=== PATIENT | male | born 1970 | race Caucasian/White ===

== ENCOUNTER 2016-06-30 22:18 | Inpatient (IN) | payer OTHER ==
[~2016-06-30] VITALS: Ht 167.6 cm; Wt 109.0 kg
[2016-06-30] MEDS ORDERED: DILTIAZEM HCL 5 MG/ML 5 ML VIAL ONE (22:53)
[2016-06-30] MEDS ORDERED: SODIUM CHLORIDE 0.9% 1000ML 1,000 ML IV STA (22:55)
[2016-06-30] MEDS ORDERED: ASPIRIN 324 MG CHEW PO STA (23:04)
[2016-06-30] MEDS ORDERED: METOPROLOL TARTRATE 1 MG/ML VIAL IV STA (23:32)
--- NOTE | 2016-06-30 23:51 | EMERGENCY ROOM VISIT NOTE ---
History Report prepared by Dao: Malika Melgar Under the Supervision of: Dr. Nik Musa M.D. First contact with patient: 22:49 Chief Complaint: CHEST PAIN Stated Complaint: SOB,CHEST PAIN History of Present Illness The patient is a 45 year old male who presents to the Emergency Room with complaints of intermittent episodes of heavy chest pressure over the past 5 days. Currently, while resting, he is in minimal discomfort, however he notes that his pains are exacerbated with attempts of exertion. When rebekah the pains, the patient also becomes short of breath, but he denies radiation of his pain to his neck, jaw, back or down his arms. Patient denies feeling light headed or suffering syncopal episodes. Since the time of onset, the patient states that he has had a loss of appetite, but he denies abdominal pain, nausea , vomiting, diarrhea, melena, hematochezia, swelling to his extremities or abnormal bleeding. He also denies suffering recent falls or trauma. Patient does note history of hypertension, but he does not take any regular medications. Source of History: patient Onset: over the past 5 days Position: chest Symptom Intensity: minimal Quality: pressure Timing: intermittent Modifying Factors (Worsening): exertion Modifying Factors (Relieving): rest Associated Symptoms: + SOB, No LOC, No abdominal pain, No diarrhea, No hematochezia, No melena, No nausea, No neck pain, No vomiting Review of Systems See HPI for pertinent positives & negatives. A total of 10 systems reviewed and were otherwise negative. Past Medical & Surgical Medical Problems: (1) HTN (hypertension) (2) No known allergies (3) Respiratory failure, acute Family History Unknown Social History Smoking Status: Never Smoker Marital Status: Housing Status: lives with family Occupation Status: unemployed Current/Historical Medications No Active Prescriptions or Reported Meds Allergies Coded Allergies: No Known Allergies (Unverified , 06/30/16) Physical Exam Vital Signs Date Time Temp Pulse Resp B/P Pulse Ox O2 Delivery O2 Flow Rate FiO2 07/01/16 01:16 112 24 154/112 96 BiPAP 07/01/16 00:51 109 26 98 BiPAP/CPAP 40 07/01/16 00:37 129 120/100 07/01/16 00:30 112 24 131/91 98 BiPAP 07/01/16 00:02 114 97 40 06/30/16 23:49 22 92 Nasal Cannula 4.0 06/30/16 23:45 22 88 Nasal Cannula 2.0 06/30/16 23:40 24 86 Room Air 06/30/16 23:39 126 153/85 06/30/16 23:23 95 Room Air 06/30/16 23:19 160 06/30/16 23:11 145 06/30/16 22:53 167 06/30/16 22:49 36.8 147 20 178/92 95 Room Air Physical Exam GENERAL: Patient is ill appearing, in moderate distress. HEENT: No acute trauma, normocephalic atraumatic, mucous membranes moist, no nasal congestion, no scleral icterus. NECK: No stridor, no adenopathy, no meningismus, trachea is midline. LUNGS: Mildly dyspneic with crackles at the bilateral lower lobes. HEART: Tachycardic and irregular heart rate. ABDOMEN: Soft, nontender, bowel sounds positive, no masses appreciated, no peritonitis. BACK: No midline tenderness, no CVA tenderness EXTREMITIES: Trace edema, bilateral ankles, right greater than left. NEUROLOGIC: Alert and oriented, no acute motor or sensory deficits, no focal weakness, cranial nerves grossly intact. SKIN: No rash, no jaundice, no diaphoresis. Medical Decision & Procedures ER Provider Diagnostic Interpretation: Upon my interpretation, 1 view chest x-ray shows diffuse pulmonary edema and an enlarged heart. Laboratory Results Test 06/30/16 23:48 07/01/16 00:52 RDW Standard Deviation 38.7 fL (36.4-46.3) RDW Coefficient of Variation 12.0 % (11.5-14.5) White Blood Count 8.96 K/uL (4.8-10.8) Red Blood Count 4.80 M/uL (4.7-6.1) Hemoglobin 15.3 g/dL (14.0-18.0) Hematocrit 42.9 % (42-52) Mean Corpuscular Volume 89.4 fL (80-100) Mean Corpuscular Hemoglobin 31.9 pg (25-34) Mean Corpuscular Hemoglobin Concent 35.7 g/dl (32-36) Platelet Count 190 K/uL (130-400) Mean Platelet Volume 11.4 fL (7.4-10.4) Neutrophils (%) (Auto) 54.3 % Lymphocytes (%) (Auto) 29.6 % Monocytes (%) (Auto) 9.7 % Eosinophils (%) (Auto) 5.5 % Basophils (%) (Auto) 0.6 % Neutrophils # (Auto) 4.87 K/uL (1.4-6.5) Lymphocytes # (Auto) 2.65 K/uL (1.2-3.4) Monocytes # (Auto) 0.87 K/uL (0.11-0.59) Eosinophils # (Auto) 0.49 K/uL (0-0.5) Basophils # (Auto) 0.05 K/uL (0-0.2) Immature Granulocyte % (Auto) 0.3 % Immature Granulocyte # (Auto) 0.03 K/uL (0.00-0.02) Prothrombin Time 11.4 SECONDS (9.0-12.0) Prothromb Time International Ratio 1.1 (0.9-1.1) Activated Partial Thromboplast Time 28.5 SECONDS (21.0-31.0) Partial Thromboplastin Ratio 1.1 D-Dimer 1210 ug/L FEU (0-500) Magnesium Level 2.0 mg/dl (1.8-2.4) Total Creatine Kinase 334 U/L (39-308) Creatine Kinase MB 3.2 ng/ml (0.5-3.6) Creatine Kinase MB Ratio 1.0 (0-3.0) Thyroid Stimulating Hormone (TSH) 1.880 uIu/ml (0.300-4.500) Arterial Blood pH 7.45 (7.35-7.45) Arterial Blood Partial Pressure CO2 33 mmHg (35-46) Arterial Blood Partial Pressure O2 118 mm/Hg (80-95) Arterial Blood HCO3 22 mmol/L (19-24) Arterial Blood Oxygen Saturation 98.6 % (90-95) Arterial Blood Base Excess -1.2 mEq/L (-9-1.8) Arterial Blood Gas Delivery 40% Rosalio Test POS (POS) Laboratory results as reviewed by me. Medications Administered Medications (Trade) Dose Ordered Sig/Idania Route Start Time Stop Time Status Last Admin Dose Admin Diltiazem HCl 25 mg 25 mg STK-MED ONCE .ROUTE 06/30/16 22:53 06/30/16 22:54 DC 06/30/16 22:53 15 MG Sodium Chloride (Nss 1000ml) 1,000 ml @ 999 mls/hr Q1H1M STAT IV 06/30/16 22:55 06/30/16 23:45 DC 06/30/16 23:14 999 MLS/HR Aspirin (Aspirin Chew) 324 mg NOW STAT PO 06/30/16 23:04 06/30/16 23:05 DC 06/30/16 23:15 324 MG Metoprolol Tartrate (Lopressor Iv) 5 mg NOW STAT IV 06/30/16 23:32 06/30/16 23:33 DC 06/30/16 23:39 5 MG Metoprolol Tartrate (Lopressor Tab) 25 mg NOW STAT PO 07/01/16 00:37 07/01/16 00:38 DC 07/01/16 00:37 25 MG Metoprolol Tartrate (Lopressor Iv) 5 mg NOW STAT IV 07/01/16 00:29 07/01/16 00:30 DC 07/01/16 00:37 5 MG Ipratropium [place] (Atrovent 0.02% 0.5MG/2.5ML Neb) 0.5 mg NOW STAT INH 07/01/16 00:37 07/01/16 00:38 DC 07/01/16 00:51 0.5 MG Levalbuterol (Xopenex 1.25MG/ 0.5ML Neb) 1.25 mg NOW STAT INH 07/01/16 00:38 07/01/16 00:39 DC 07/01/16 00:51 1.25 MG Furosemide (Lasix Inj) 40 mg NOW STAT IV 07/01/16 00:40 07/01/16 00:41 DC 07/01/16 00:43 40 MG ECG Indication: chest pain Rate (beats per minute): 150 Rhythm: atrial fibrillation (with RVR) Findings: nonspecific-ST abn ED Course 2250: The patient was evaluated in room C11. A complete history and physical exam was performed. 3: Cardizem 25 mg Route was ordered. 2255: NSS bolus IV was ordered. 2304: Aspirin 324 mg PO was ordered. 2305: Patient was reevaluated at this time. He will receive the Cardizem shortly. 2332: Upon reevaluation, patient was no longer experiencing chest pressure, but was still feeling short of breath. His heart rate was at 103 BPM and his oxygen saturation levels were at 85% on normal room air. Lopressor 5 mg IV was ordered and he will be placed on oxygen via nasal canula. The hospitalist will be contacted. 2338: After discussion with Dr. Rossi, the patent will continue to be evaluated by the [facility] for further management. The patient and his verbalized their understanding and agreement with this treatment plan. 2352: Patient was experienced increased dyspnea and his heart rate was now down to 85. Respiratory team will be called to place BiPAP. 0010: Upon reevaluation, patient was breathing more comfortably on BiPAP. HR is in the 90's and is irregular. 0029: Upon reevaluation, the patient's HR was at 117 and irregular. Lopressor 5 mg IV was ordered. 0030: Lasix 40 mg Route was ordered. 0037: Ipratropium [place] 0.5 mg INH, Lopressor tab 25 mg PO, Levalbuterol 1.25 mg INH and Lasix 40 mg IV were ordered. Medical Decision Differential: NSR, SVT, PACs, PVCs, Cardiac Dysrhythmia, Endocrine Dysfunction, Electrolyte/Metabolic Abnormality, Pulmonary Embolism, Infectious, GI, amongst other pathologies entertained. 45 yr old male arrives with complaint of SOB and CP on exertion. He was found to be afib RVR on arrival though by exam did not seem to be in overt failure. No previous cardiac history nor other major medical issues thus due to significant tachycardia ordered 15mg Cardizem IV along with 1 L NSS bolus. HR improving and CXR obtained revealing significant pulmonary edema. Patient did start becoming hypoxic and SHOB even with just laying back slightly in bed. I placed him on BIPAP with excellent result and patient feeling well. Due to heart failure switched to Lopressor with excellent HR improvement. No fevers, no wbc elevation and no clear lobar infiltrates on CXR. HR did start coming back up thus given another IV dose lopressor, in addition to PO that Dr العلي has ordered. Labs looks good otherwise and he is in no distress while on bipap. Hospitalist has ordered lasix. Patient stable BP and comfortable. Multiple re-evaluations of patient throughout the evening and patient doing well. Consults Time Called: [id number] Consulting Physician: [facility]. Bra[facility]io [facility] Returned Call: [phone] Discussed the patient's case. He will continue to be evaluated by the [facility] hospitalist for further management. Impression Primary Impression: Atrial fibrillation with RVR Additional Impression: Pulmonary edema Critical Care I have personally spent greater than 45 minutes of critical care time in the direct management of this patient. This was a life/limb threatening event. This includes time spent evaluating patient, direct bedside care, chart review, placing orders, interpretation of diagnostic studies, discussion with consultants, patient, and family members, as well as other required patient management activities. This 45 minutes is in excess of all separately billable procedures. Scribe Attestation The scribe's documentation has been prepared under my direction and personally reviewed by me in its entirety. I confirm that the note above accurately reflects all work, treatment, procedures, and medical decision making performed by me. Departure Information Dispostion Being Evaluated By Hospitalist ([place]) Prescriptions No Active Prescriptions or Reported Meds Referrals No Doctor, Assigned (PCP)
[2016-07-01] VITALS (25 sets, daily range): BP systolic 83–146; BP diastolic 50–96; PULSE 11–159; TEMP 36.4–36.8; O2SAT 88–98; Ht 167.6 cm; Wt 109.0 kg
[2016-07-01 00:01] LABS: BASO % 0.6 %; BASO ABS # 0.05 K/uL (0-0.2); COMPLETE YES; EOS % 5.5 %; HEMATOCRIT 42.9 % (42-52); IG% 0.3 %; LYMPH % 29.6 %; LYMPH ABS # 2.65 K/uL (1.2-3.4); MEAN CELL VOLUME 89.4 fL (80-100); MEAN CORPUSCULAR HEMOGLOBIN 31.9 pg (25-34); MEAN CORPUSCULAR HGB CONC 35.7 g/dl (32-36); MEAN PLATELET VOLUME 11.4 fL (7.4-10.4); MONO % 9.7 %; NEUT % 54.3 %; PLATELET COUNT 190 K/uL (130-400); WHITE BLOOD COUNT 8.96 K/uL (4.8-10.8)
[2016-07-01 00:12] LABS: INR 1.1 (0.9-1.1); PARTIAL THROMBOPLASTIN RATIO 1.1; PROTHROMBIN TIME (PATIENT) 11.4 SECONDS (9.0-12.0)
[2016-07-01 00:16] LABS: BLOOD UREA NITROGEN 20 mg/dl (7-18); BUN/CREATININE RATIO 15.1 (10-20); CALCIUM 8.6 mg/dl (8.5-10.1); CARBON DIOXIDE 25 mmol/L (21-32); CHLORIDE 107 mmol/L (98-107); GLUCOSE 109 mg/dl (70-99); SODIUM 139 mmol/L (136-145)
[2016-07-01] MEDS ORDERED: LEVALBUTEROL/IPRATROPIUM NEB INH STA (00:21)
[2016-07-01] MEDS ORDERED: FUROSEMIDE INJ 40 MG in SYRINGE 0 ML IV STA (00:21)
[2016-07-01] MEDS ORDERED: METOPROLOL TARTRATE 1 MG/ML VIAL IV STA (00:29)
[2016-07-01] MEDS ORDERED: LEVALBUTEROL/IPRATROPIUM NEB INH PRN (00:30)
[2016-07-01] MEDS ORDERED: FUROSEMIDE 40 MG/4 ML VIAL ONE (00:30)
[2016-07-01] MEDS ORDERED: METOPROLOL TARTRATE 50 MG TAB PO STA (00:37)
[2016-07-01] MEDS ORDERED: IPRATROPIUM BROMIDE NEB SOLN 0.02% 2.5 ML VIAL INH STA (00:37)
[2016-07-01] MEDS ORDERED: LEVALBUTEROL 1.25MG/0.5ML NEB INH STA (00:38)
[2016-07-01] MEDS ORDERED: FUROSEMIDE 40 MG/4 ML VIAL IV STA (00:40)
[2016-07-01 01:15] LABS: ALLEN TEST POS (POS); ARTERIAL BLD GAS O2 SATURATION 98.6 % (90-95); ARTERIAL BLOOD GAS BASE EXCESS -1.2 mEq/L (-9-1.8); ARTERIAL BLOOD GAS HCO3 22 mmol/L (19-24); ARTERIAL BLOOD GAS PO2 118 mm/Hg (80-95); ARTERIAL BLOOD GAS pH 7.45 (7.35-7.45); O2 ADMINISTRATION 40%
[2016-07-01] MEDS ORDERED: LORAZEPAM 2 MG/ML 1 ML VIAL IV PRN (02:00)
[2016-07-01] MEDS ORDERED: MoRPHine SULFATE 4 MG/ML 1 ML CARP\\VIAL IV PRN (02:00)
[2016-07-01] MEDS ORDERED: NITROGLYCERIN 0.4 MG SL PER TAB CHARGE SL PRN (02:00)
[2016-07-01] MEDS ORDERED: ACETAMINOPHEN 325 MG TAB PO PRN (02:00)
[2016-07-01] MEDS ORDERED: LORAZEPAM INJ 0.5 MG in SYRINGE 0.75 ML IV PRN (02:00)
[2016-07-01] MEDS ORDERED: OPTIRAY 320 IV PRN (02:00)
[2016-07-01] MEDS ORDERED: TRAMADOL HCL 50 MG TAB PO PRN (02:00)
[2016-07-01] MEDS ORDERED: METOPROLOL TARTRATE 25 MG TAB PO STA (04:49)
[2016-07-01] MEDS: HEPARIN 25,000 UNIT/500ML D5W 500 ML IV PRN ×2 (05:25→20:52)
[2016-07-01 05:39] LABS: BASO % 0.5 %; BASO ABS # 0.04 K/uL (0-0.2); COMPLETE YES; EOS % 3.7 %; HEMATOCRIT 42.3 % (42-52); IG% 0.3 %; LYMPH % 26.5 %; LYMPH ABS # 2.32 K/uL (1.2-3.4); MEAN CELL VOLUME 90.6 fL (80-100); MEAN CORPUSCULAR HEMOGLOBIN 32.3 pg (25-34); MEAN CORPUSCULAR HGB CONC 35.7 g/dl (32-36); MEAN PLATELET VOLUME 11.1 fL (7.4-10.4); MONO % 9.3 %; NEUT % 59.7 %; PLATELET COUNT 193 K/uL (130-400); RED BLOOD COUNT 4.67 M/uL (4.7-6.1); WHITE BLOOD COUNT 8.74 K/uL (4.8-10.8)
[2016-07-01 06:05] LABS: BUN/CREATININE RATIO 15.8 (10-20); CALCIUM 8.7 mg/dl (8.5-10.1); CREATININE 1.3 mg/dl (0.60-1.40); POTASSIUM 4.4 mmol/L (3.5-5.1)
--- NOTE | 2016-07-01 07:05 | HISTORY & PHYSICAL EXAMINATION ---
DATE OF ADMISSION: 07/01/2016 The patient has no primary care doctor. CHIEF COMPLAINT: Chest pain. HISTORY OF PRESENT ILLNESS: Medical history significant for hypertension (px refusing meds). Few days' history of chest pain, pleuritic, with some shortness of breath, mostly on exertion, dry cough symptoms. Patient also noted palpitations, fast heartbeat. No fever, no chills. Denies unusual leg swelling or weight gain. At the Emergency Room, noted to be in rapid atrial fibrillation. heart rate noted to be 140s. Patient given NSS, Cardizem and Lopressor IV in the ER. At some point, O2 sats dropped to 86 on room air. PX had to be started on BiPAP. MEDICAL HISTORY: As above. He has been told that he has high blood pressure in the past, but he did not taken medication. also gives info that px snores; apneic episodes during sleep may be possible as per OPERATIONS: Appendectomy. HOME MEDICATIONS: None. ALLERGIES: No known drug allergies. FAMILY HISTORY: Atrial fibrillation. PERSONAL AND SOCIAL HISTORY: Nonsmoker, no chronic intake of alcoholic beverages. 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 REVIEW OF SYSTEMS: As per HPI, all other ROS negative. PHYSICAL EXAMINATION: VITAL SIGNS: Blood pressure was noted to be 170/92, pulse rate 140 later 126., RR 20, temperature 36.8, sats 94 on room air later 90s on BiPAP GENERAL: Noted to be slightly anxious, obese, some respiratory distress. SKIN : normal color. HEENT: [place] palpable conjunctivae. Moist buccal mucosa. BiPAP in place. NECK: Short. LUNGS: Bibasilar crackles. HEART: Irregular, tachycardic. ABDOMEN: Some distention. EXTREMITIES: No edema. No tenderness. NEUROLOGIC: No gross focality. LABS: Hemoglobin 15.3, hematocrit 42.5, white cells 8.9, platelets 190. Sodium 139, potassium 4, chloride 102, CO2 25, BUN 20, creatinine 1.3, glucose 109. trop 0 ABG, pH 7.45, pCO2 30, pO2 118, O2 sats 98 on 40%. EKG rate 150, atrial fibrillation, LAE, Q waves, inf leads. Chest x-ray showed CHF. CT chest, initial read, no pulmonary embolism. pulm congestion ASSESSMENT: 1. Acute hypoxemic respiratory failure secondary to acute congestive heart failure secondary to new-onset atrial fibrillation 2. HTN urgency medication noncompliance. ? underlying SDB PLAN: PCU supplemental O2 by NIPPV Lasix. Stat nebs, p.r.n. Initiate Lopressor for rate control. IV heparin for thromboembolic prevention 2D echo, Cardio consult RE new onset atrial fib, CHF strict IOs, daily weights CHF education outpx sleep study DVT prophylaxis, heparin. Full code. Total critical care time was 50 minutes. MTDD
--- NOTE | 2016-07-01 07:43 | DIAGNOSTIC IMAGING REPORT ---
SINGLE VIEW CHEST CLINICAL HISTORY: Cough. Atypical chest pain. FINDINGS: An AP, portable, upright chest radiograph is obtained. No prior studies are available for comparison at the time of dictation. The examination is degraded by portable technique and apical lordotic positioning. The heart is enlarged. There is pulmonary vascular congestion with interstitial edema. Small pleural effusions are suspected and there is bibasilar consolidation. No pneumothorax is seen. The bony thorax is grossly intact. IMPRESSION: 1. Cardiomegaly with evidence of congestive failure and interstitial edema. 2. Suspect small pleural effusions. Bibasilar consolidation likely represents atelectasis. Clinical correlation will be required. Electronically signed by: Ernie Vaughn M.D. 07/01/2016 7:41 AM
--- NOTE | 2016-07-01 08:35 | DIAGNOSTIC IMAGING REPORT ---
CT ANGIOGRAM OF THE CHEST CLINICAL HISTORY: Atypical chest pain. Dyspnea. COMPARISON STUDY: Chest x-ray dated 06/22/2016. TECHNIQUE: Following the IV administration of 92 cc of Optiray 320, CT angiogram of the chest was performed from the upper abdomen to the thoracic inlet utilizing the pulmonary embolus protocol. Images are reviewed in the axial, sagittal, and coronal planes. 3-D MIPS images are created and assessed. IV contrast was administered without complication. CT DOSE: 831.45 mGy.cm FINDINGS: Thyroid: Imaged portions of the thyroid gland are normal in size and attenuation. Thoracic aorta: The thoracic aorta is normal in caliber and demonstrates standard 3-vessel arch anatomy. The thoracic aorta is not well opacified. Pulmonary vasculature: The pulmonary trunk is normal in caliber. There are no filling defects identified in main, lobar, or segmental pulmonary branches to suggest pulmonary embolus. The subsegmental branches are not well assessed due to suboptimal contrast opacification. Heart: The heart is enlarged and without pericardial effusion. Lungs and pleural spaces: There are small to moderate bilateral pleural effusions with associated atelectasis. There is diffuse intralobular septal thickening as well as bilateral groundglass consolidation. Several nodular densities are identified (left upper lobe image #201 measuring 8 mm, right upper lobe image #186 measuring 7 mm). The trachea and central airways are patent. Mediastinum: There are mildly enlarged mediastinal lymph nodes. A high right peritracheal node on image #244 measures 1.5 cm in short axis. Yasmeen: There are mildly enlarged hilar lymph nodes. Several of these contain coarse calcifications. Axillae: There is no axillary lymphadenopathy. Upper abdomen: Reflux of contrast into the IVC and hepatic veins suggests cardiac dysfunction. There are calcified hepatic granulomas. A small hiatal hernia is observed. Skeletal structures: No lytic or blastic bony lesions are seen. IMPRESSION: 1. There is no evidence of pulmonary embolus in the main, lobar, or segmental pulmonary arteries. 2. Cardiomegaly with evidence of congestive failure. 3. There are small to moderate bilateral pleural effusions with associated atelectasis. 4. There is bilateral patchy groundglass consolidation, likely representing interstitial edema. Correlate clinically for evidence of a superimposed infectious or inflammatory pneumonitis. 5. There are numerous irregular nodular densities present throughout both lungs. This is likely related to congestive change/interstitial edema. Follow-up chest CT scan in 3-6 months time is recommended to document resolution. 6. Additional findings as above. Electronically signed by: Ernie Vaughn M.D. 07/01/2016 8:33 AM
[2016-07-01] MEDS ORDERED: PERFLUTREN LIPID MICROSPHERE (DEFINITY) IV ONE (08:39)
[2016-07-01] MEDS ORDERED: FUROSEMIDE INJ 40 MG in SYRINGE 0 ML IV SCH (09:00)
[2016-07-01] MEDS: METOPROLOL TARTRATE 25 MG TAB PO SCH ×2 (09:05→21:29)
--- NOTE | 2016-07-01 09:06 | ECHOCARDIOGRAM REPORT ---
*NOTICE TO RECEIVING REPUBLICAN AGENCY This information is strictly Confidential and protected under [place] law. [place] law prohibits you from making any further disclosure of this information unless further disclosure is expressly permitted by the written consent of the person to whom it pertains or is authorized by law. A general authorization for the release of medical or other information is not sufficient for this purpose. Hospital accepts no responsibility if the information is made available to any other person, INCLUDING THE PATIENT. Interpretation Summary * Name: AJ MENCHACA Study Date: 07/01/2016 07:27 AM BP: 117/77 mmHg * Patient Location: [facility] HR: 104 * : 1970 (M/d/yyyy) Gender: Male Height: 66 in * Age: 45 yrs Ethnicity: CA Weight: 252 lb * Ordering Physician: Paras Rossi * Performed By: Bernice Goff * * Reason For Study: CHF * BSA: 2.2 m2 * -- Conclusions -- * Moderately dilated LV chamber size with normal wall thickness. * Severely reduced LV systolic function with severe global hypokinesis, EF 10-15%. * Grade III diastolic dysfunction. * Moderately dilated RV chamber size with severely reduced RV systolic function by TAPSE. * Mild mitral regurgitation. * Moderate left atrial enlargement. * Mild right atrial enlargement. * Mild atherosclerotic plaque(s) in the ascending aorta. Procedure Details * A complete two-dimensional transthoracic echocardiogram was performed (2D, M-mode, Doppler and color flow Doppler). * A contrast injection of Definity was performed to improve assessment of LV function. * Contrast was injected into an intravenous site in the left arm. * One vial of Definity ultrasound contrast was diluted in normal saline to a total volume of 10 ml. A total of '3' ml of solution was administered during imaging. * Lot # [id number] of Definity utilized for procedure. * Expiration date 12/18. * The attending nurse who injected the contrast agent was ELIZABETH JONES RN. Left Ventricle * The left ventricle is moderately dilated. * There is normal left ventricular wall thickness. * Ejection Fraction = <15%. * Left ventricular systolic function is severely reduced. * There is severe global hypokinesis of the left ventricle. Right Ventricle * The right ventricle is moderately dilated. * The right ventricular systolic function is severely reduced. Atria * The left atrium is moderately dilated. * The right atrium is mildly dilated. Mitral Valve * The mitral valve anatomy is normal. * There is no mitral valve stenosis. * There is mild mitral regurgitation. Tricuspid Valve * The tricuspid valve is normal in structure and function. Aortic Valve * The aortic valve is trileaflet. * No hemodynamically significant valvular aortic stenosis. * There is no significant aortic regurgitation. Pulmonic Valve * The pulmonary valve is not well seen, but the Doppler examination is normal without significant regurgitation or stenosis. Great Vessels * The aortic root and proximal ascending aorta are normal sized. * Mild atherosclerotic plaque(s) in the ascending aorta. Pericardium/Pleural * There is no pericardial effusion. Left Ventricular Diastolic Function * Diastolic dysfunction, Grade III, consistent with marked congestive heart failure. MMode 2D Measurements and Calculations IVSd 0.40 cm IVSs 0.64 cm LVIDd 6.0 cm LVIDs 5.6 cm LVPWd 0.78 cm LVPWs 1.1 cm IVS/LVPW 0.51 FS 6.2 % EDV(Teich) 181.1 ml ESV(Teich) 156.2 ml EF(Teich) 13.7 % EDV(cubed) 217.7 ml ESV(cubed) 179.4 ml EF(cubed) 17.6 % % IVS thick 61.3 % % LVPW thick 45.4 % LV mass(C)d 128.6 grams LV mass(C)dI 58.3 grams/m\S\2 LV mass(C)s 189.7 grams LV mass(C)sI 86.0 grams/m\S\2 CO(Teich) 3.3 l/min CI(Teich) 1.5 l/min/m\S\2 SV(Teich) 24.9 ml SI(Teich) 11.3 ml/m\S\2 CO(cubed) 5.0 l/min CI(cubed) 2.3 l/min/m\S\2 SV(cubed) 38.3 ml SI(cubed) 17.4 ml/m\S\2 EPSS 2.3 cm ACS 1.2 cm LA dimension 5.4 cm asc Aorta Diam 3.3 cm LVOT diam 2.0 cm LVOT area 3.0 cm\S\2 LVAd ap4 32.4 cm\S\2 LVLd ap4 7.4 cm EDV(MOD-sp4) 115.0 ml LVAs ap4 29.0 cm\S\2 LVLs ap4 7.0 cm ESV(MOD-sp4) 97.8 ml EF(MOD-sp4) 15.0 % LVAd ap2 38.7 cm\S\2 LVLd ap2 7.9 cm EDV(MOD-sp2) 161.0 ml LVAs ap2 34.1 cm\S\2 LVLs ap2 7.4 cm ESV(MOD-sp2) 135.0 ml EF(MOD-sp2) 16.1 % CO(MOD-sp4) 2.3 l/min CI(MOD-sp4) 1.0 l/min/m\S\2 SV(MOD-sp4) 17.2 ml SI(MOD-sp4) 7.8 ml/m\S\2 CO(MOD-sp2) 3.4 l/min CI(MOD-sp2) 1.5 l/min/m\S\2 SV(MOD-sp2) 26.0 ml SI(MOD-sp2) 11.8 ml/m\S\2 Doppler Measurements and Calculations MV E max gabby 94.3 cm/sec MV dec time 0.13 sec Ao V2 max 76.6 cm/sec Ao max PG 2.3 mmHg Ao max PG (full) 1.9 mmHg JITENDRA(V,A) 1.3 cm\S\2 JITENDRA(V,D) 1.3 cm\S\2 LV V1 max PG 0.44 mmHg LV V1 max 33.1 cm/sec MR max gabby 351.7 cm/sec MR max PG 49.5 mmHg PA V2 max 35.3 cm/sec PA max PG 0.50 mmHg PI end-d gabby 110.6 cm/sec
[2016-07-01] MEDS: LEVALBUTEROL 1.25MG/0.5ML NEB INH PRN ×2 (10:24→17:43)
[2016-07-01] MEDS: IPRATROPIUM BROMIDE NEB SOLN 0.02% 2.5 ML VIAL INH PRN ×2 (10:24→17:43)
[2016-07-01] MEDS ORDERED: DIGOXIN IV 125 MCG in SYRINGE 9.5 ML IV ONE (10:30)
[2016-07-01] MEDS ORDERED: METOPROLOL TARTRATE 1 MG/ML VIAL ONE (11:07)
--- NOTE | 2016-07-01 11:23 | CARDIOLOGY CONSULTATION ---
DATE OF CONSULTATION: 07/01/2016 CONSULTATION REQUESTED BY: Dr. Rossi. REASON FOR CONSULTATION: Atrial fibrillation with rapid ventricular response and new heart failure. HISTORY OF PRESENT ILLNESS: Mr. Callaway is a very pleasant 45-year-old gentleman who does not normally follows with a physician. He presented to [facility] Emergency Department late in the evening of 06/30/2016 with a complaint of shortness of breath and chest discomfort. The patient states that his symptoms may have gradually been worsening over several months, but really worsened approximately 7 days ago. 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 Then approximately 5 days ago, on the evening of June 26, he became significantly ill. He states that he noticed that when he woke up in the morning he was feeling short of breath lying down, which was relieved by sitting up, then with any minimal exertion he would develop significant shortness of breath as well as chest discomfort. The chest discomfort was rather constant all day on the , but was worsened with exertion. He describes it as a substernal pressure sensation without radiation. At that time, he did not seek medical attention due to the holiday; however, he state that he felt horrible. His orthopnea and then worsened that night and he had to sleep sitting up on his couch. At that time, he tried some homeopathic remedies with red peppers and believes it might have actually improved some of his symptoms. On the , he also started having loose bowel movements and feeling palpitations in his chest. He states that he felt as though his heart was racing anytime he try and do even minimal exertion. Then on the morning of the he states he felt a little bit better, his symptoms then persisted for the next several days; however, nowhere near as severe as Tuesday night, then on the evening of the he was finally could not put up with his symptoms anymore and came into the Emergency Department. Upon presentation, he was found to be in atrial fibrillation with rapid ventricular response in the 140s for which he was given IV metoprolol as well as IV Cardizem with some improvement. Chest x-ray was found which found to have significant cardiomegaly and some pulmonary vascular congestion. He was started on heparin drip, given a dose of IV Lasix and admitted to telemetry. Currently, states he is feeling a little bit better than presentation. His orthopnea has improved, but he is still having some slight chest heaviness at rest. He also feels short of breath with any significant exertion. The patient notes that I did not see a physician on a regular basis. 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 PAST SURGICAL HISTORY: 1. Appendectomy. 2. Foot surgery as a child to remove the piece of broken glass. MEDICAL ILLNESSES: 1. Questionable hypertension which he does not take medications. FAMILY HISTORY: He has an extensive family cardiac history including a father who developed coronary artery disease in his 40s, an older brother who developed coronary artery disease in his 50s and another older brother that suffered a nonischemic cardiomyopathy with an EF as low as 5% after a virus. SOCIAL HISTORY: Denies any alcohol, tobacco or recreational drug use. He is and lives at home with his . He has 4 children who is good health. 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 He does not exercise. REVIEW OF SYSTEMS: As per HPI. All other review of systems reviewed and negative at this time. ALLERGIES: No known drug allergies. MEDICATIONS AN OUTPATIENT: Denies. PHYSICAL EXAMINATION: VITALS: Temperature 36.8, pulse 112, respiratory rate 12, blood pressure 126/74, saturating 98% on room air. GENERAL: Awake, alert, oriented x3, in no acute distress. HEENT: Normocephalic, atraumatic. Pupils equal, round, and reactive to light and accommodation. Extraocular muscles intact. Anicteric sclerae. Moist mucous membranes. NECK: No JVD, no bruit. CARDIOVASCULAR: Irregularly irregular and fast. Unable to appreciate any murmurs, rubs or gallops. PULMONARY: Scant bibasilar crackles, otherwise clear. No rhonchi or wheezing. ABDOMEN: Bowel sounds x4, soft. No rebound, guarding, tenderness. No organomegaly. EXTREMITIES: No clubbing, cyanosis or edema. +2 pedal pulses bilaterally. SKIN: Warm and dry. TEST RESULTS: 2D echocardiogram was read as moderately dilated LV chamber size with normal wall thickness, severely reduced LV systolic function with severe global hypokinesis, EF 10-15%, grade 3 diastolic dysfunction, moderately dilated RV chamber size with severely reduced RV systolic function by TAPSE, mild mitral regurgitation, moderate left atrial enlargement, mild right atrial enlargement, mild atherosclerotic plaque in the ascending aorta. CTA of the chest was read as no evidence of pulmonary emboli, cardiomegaly with evidence of congestive heart failure, small to moderate bilateral pleural effusions with associated atelectasis, bilateral patchy ground-glass consolidation, likely representing interstitial edema, numerous irregular nodules present throughout both lungs, followup CT in 3-6 months is recommended. LABORATORY STUDIES OF SIGNIFICANCE: White count of 8.7, hemoglobin 15.1, platelet count of 193. INR 1.1. Sodium 140, potassium 4.4, BUN 21, creatinine 1.3. Troponin of 0.032 followed by 0.035. CPK of 334. TSH of 1.88. IMPRESSION: 1. Severe biventricular systolic failure. 2. Atrial fibrillation with rapid ventricular response, likely secondary to severe biventricular systolic failure. 3. Acute decompensated biventricular systolic failure. RECOMMENDATIONS: It was my pleasure to see Mr. Callaway in consultation today. The pathophysiology causes and treatment options for ischemic and for newly discovered cardiomyopathy was discussed with the patient at great lengths. He was counseled that the most prudent course of action is the first rule out ischemic cardiomyopathy, which I rather doubt, given the global pattern of the hypokinesis. At the same time, we will institute medications to treat for both ischemic and nonischemic cardiomyopathy. So he has already been started on metoprolol, which I agree with and will increase the frequency to 25 mg q. 6 hours. I also give him a dose of IV digoxin x1 now and will proceed with cardiac catheterization with right and left in the a.m. He does not examine to significantly volume overload, so will get 1 dose of IV Lasix this a.m. and then will be held. Will also start low dose spironolactone, given his reduced systolic function. BLANCA inhibitor will be held until after the cardiac catheterization to try to avoid renal impairment. The pathophysiology and treatment options for atrial fibrillation were also discussed with the patient. He was counseled this is most likely the patient's cardiomyopathy as well as most likely smoldering for some time now and he likely went into atrial fibrillation on Tuesday night, which is when his symptoms significantly worsened. So, at this time we will try to control the rates with metoprolol and digoxin. Calcium channel daniel will be avoided due to its negative inotropic effects and his severely reduced LV systolic function. Heparin drip has already been started and will be continued and will discuss long-term anticoagulation with Coumadin versus now oral anticoagulant with him as well and then plans for rate versus rhythm control will be deferred until after the cardiac catheterization. He should be continued to monitor closely on telemetry, strict I's and O's should be maintained, his electrolytes should be followed closely and maintain a potassium greater than 4 and magnesium greater than 2. Thank you very much for allowing me to participate in the care of your patient.
[2016-07-01] MEDS ORDERED: SPIRONOLACTONE 25 MG TAB PO ONE (12:00)
[2016-07-01 12:02] LABS: PARTIAL THROMBOPLASTIN RATIO 1.6
[2016-07-01] MEDS: ESMOLOL / NSS 2,500 MG in PREMIXED NSS 250 ML IV PRN ×3 (13:25→20:42)
[2016-07-01] MEDS ORDERED: HEPARIN IV BOLUS 7,000 UNIT in SYRINGE 0 ML IV ONE (13:30)
[2016-07-01 16:44] LABS: MAGNESIUM 2.1 mg/dl (1.8-2.4); POTASSIUM 4.2 mmol/L (3.5-5.1)
[2016-07-01 20:41] LABS: MAGNESIUM 2.1 mg/dl (1.8-2.4)
[2016-07-01 20:45] LABS: PARTIAL THROMBOPLASTIN RATIO 2.8
--- NOTE | 2016-07-01 23:06 | Progress Note ---
Progress Note ATTENDING NOTE : The patient is a 45-year-old male presented with symptoms of exertional shortness of breath and fatigue no prior hx of Cardiac disease , does not follow with any Physician family hx significant for 2 brothers -having CHF , cardiomyopathy Father having IN diet at age 78 form CHF in the ED pt was found to be in rapid afib Cxray -pulmonary congestion Echocardiogram demonstrated severe LV dysfunction, EF less than 15%. pt started on IV Esmolol gtt ( CCB avoided for sever cardiomyopathy ) IV heparin given Lasix for diuresis -decompensated CHF schedule for diagnostic cardiac cath in AM
[2016-07-02] VITALS (74 sets, daily range): BP systolic 81–156; BP diastolic 55–104; PULSE 81–181; TEMP 36.5–36.9; O2SAT 88–97
[2016-07-02] MEDS: ESMOLOL / NSS 2,500 MG in PREMIXED NSS 250 ML IV PRN ×4 (00:29→09:30)
[2016-07-02 02:31] LABS: PARTIAL THROMBOPLASTIN RATIO 2.5
[2016-07-02 02:35] LABS: MAGNESIUM 1.9 mg/dl (1.8-2.4); POTASSIUM 4.1 mmol/L (3.5-5.1)
[2016-07-02] MEDS ORDERED: MAGNESIUM SULFATE 1GM / D5W 1 GM in PREMIXED IN D5W 100 ML IV STA (02:40)
[2016-07-02] MEDS ORDERED: DIGOXIN IV 250 MCG in SYRINGE 9 ML IV STA ×2 (02:41→22:37)
[2016-07-02 06:04] LABS: BASO % 0.7 %; BASO ABS # 0.06 K/uL (0-0.2); COMPLETE YES; EOS % 5.5 %; HEMATOCRIT 41.1 % (42-52); IG% 0.2 %; LYMPH % 34.4 %; LYMPH ABS # 2.99 K/uL (1.2-3.4); MEAN CELL VOLUME 90.5 fL (80-100); MEAN CORPUSCULAR HEMOGLOBIN 31.7 pg (25-34); MEAN PLATELET VOLUME 11.1 fL (7.4-10.4); MONO % 9.4 %; NEUT % 49.8 %; PLATELET COUNT 193 K/uL (130-400); RED BLOOD COUNT 4.54 M/uL (4.7-6.1); WHITE BLOOD COUNT 8.68 K/uL (4.8-10.8)
[2016-07-02 06:18] LABS: PARTIAL THROMBOPLASTIN RATIO 2.3
[2016-07-02 06:37] LABS: BUN/CREATININE RATIO 15.2 (10-20); CALCIUM 8.2 mg/dl (8.5-10.1); CREATININE 1.4 mg/dl (0.60-1.40); POTASSIUM 4.2 mmol/L (3.5-5.1)
[2016-07-02] MEDS: ONDANSETRON INJ 2 MG/ML 2 ML VIAL IV PRN (07:27)
--- NOTE | 2016-07-02 07:41 | DIAGNOSTIC IMAGING REPORT ---
CHEST ONE VIEW PORTABLE CLINICAL HISTORY: CHF dyspnea COMPARISON STUDY: 06/22/2016 FINDINGS: Congestive failure slightly improved radiographically from the prior exam. Mild persistent cardiomegaly. Diaphragms smooth. IMPRESSION: Mildly improved components of congestive heart failure Electronically signed by: Deion Hoyos M.D. 07/02/2016 7:39 AM
[2016-07-02] MEDS: METOPROLOL TARTRATE 25 MG TAB PO SCH (09:00)
[2016-07-02] MEDS: SPIRONOLACTONE 25 MG TAB PO SCH (09:17)
[2016-07-02] MEDS ORDERED: METOPROLOL SUCC 25MG EXT REL TAB PO ONE (10:15)
[2016-07-02] MEDS ORDERED: DIGOXIN IV 250 MCG in SYRINGE 9 ML IV ONE (10:15)
--- NOTE | 2016-07-02 10:49 | CARDIOLOGY PROGRESS NOTE ---
DATE: 07/02/2016 DATE: 07/02/2016. The patient seen and examined. Chart, medications, telemetry reviewed. SUBJECTIVE: No difficulties overnight. Heart rates have remained elevated without abrupt change with esmolol dosing. Blood pressures have been trending slightly higher, but still remained low. He has had relatively good urine output yesterday. Notes no chest pains. Notes no dizziness or lightheadedness. Notes no orthopnea. OBJECTIVE: VITAL SIGNS: Heart rate is 100-120, blood pressure is 99/76. NECK: Thick. There is no distinct jugular venous distention. LUNGS: Revealed mildly diminished breath sounds but were generally clear at the bases. CARDIOVASCULAR EXAMINATION: Irregularly irregular, tachycardic. There is no S3 gallop. ABDOMEN: Soft, mildly distended. EXTREMITIES: Without cyanosis or clubbing. There is 1+ lower extremity edema with intact distal pulses. LABORATORY STUDIES: Sodium is 139, potassium is 4.2, chloride is 104, bicarbonate 28, BUN is 21, creatinine is 1.4, glucose is 100, albumin level is 3.1. Chest x-ray reveals improving pulmonary vascular congestion with still signs of mild pulmonary edema. IMPRESSION: This 45-year-old male presents with atrial fibrillation with rapid ventricular response, newly noted severe cardiomyopathy of undetermined etiology. PLAN: Will discontinue esmolol and switch to oral Toprol as well as additional bolus of digoxin. Continue IV heparin. Will anticipate diagnostic cardiac catheterization to exclude ischemic heart disease, possibly later today. Continue gradual diuresis as blood pressure allows with hypotension being currently limiting factor. Will follow closely in hospital.
[2016-07-02 11:18] LABS: TOTAL IRON BINDING CAPACITY 265 mcg/dl (250-450)
[2016-07-02] MEDS: HEPARIN 25,000 UNIT/500ML D5W 500 ML IV PRN (13:16)
[2016-07-02] MEDS ORDERED: METOPROLOL SUCC 25MG EXT REL TAB PO SCH (14:00)
[2016-07-02] MEDS ORDERED: DIAZEPAM 5MG TAB ONE (14:45)
[2016-07-02 16:24] LABS: ISTAT ARTERIAL BLOOD GAS HCO3 25 meq/L (19-24); ISTAT ARTERIAL BLOOD GAS PCO2 48 mmHg (35-46); ISTAT ARTERIAL BLOOD GAS PO2 34 mmHg (80-95); ISTAT ARTERIAL BLOOD GAS pH 7.33 (7.35-7.45); ISTAT CARBON DIOXIDE 27 mEq/l (24-31)
[2016-07-02 16:24] LABS: ISTAT ARTERIAL BLOOD GAS HCO3 26 meq/L (19-24); ISTAT ARTERIAL BLOOD GAS PCO2 47 mmHg (35-46); ISTAT ARTERIAL BLOOD GAS PO2 34 mmHg (80-95); ISTAT ARTERIAL BLOOD GAS pH 7.35 (7.35-7.45); ISTAT CARBON DIOXIDE 27 mEq/l (24-31)
[2016-07-02 16:24] LABS: ISTAT ARTERIAL BLOOD GAS HCO3 23 meq/L (19-24); ISTAT ARTERIAL BLOOD GAS PCO2 40 mmHg (35-46); ISTAT ARTERIAL BLOOD GAS PO2 62 mmHg (80-95); ISTAT ARTERIAL BLOOD GAS pH 7.36 (7.35-7.45); ISTAT CARBON DIOXIDE 24 mEq/l (24-31)
[2016-07-02] MEDS ORDERED: SODIUM CHLORIDE 0.9% 1000ML 1,000 ML IV SCH (16:34)
[2016-07-02] MEDS ORDERED: ATROPINE SULFATE 0.1 MG/ML 5ML SYR IV PRN (16:45)
[2016-07-02] MEDS ORDERED: ACETAMINOPHEN 325 MG TAB PO PRN (16:45)
[2016-07-02] MEDS: DIGOXIN 0.125 MG TAB PO SCH (17:07)
--- NOTE | 2016-07-02 18:39 | Progress Note ---
Internal Med Progress Note Date of Service: Jul 02, 2016. Provider Documentation: SUBJECTIVE: no complain of chest pain or SOB No orthopnea S/p Cardiac cath earlier today OBJECTIVE: Vital Signs-as noted below Exam: General-no sign of distress , pleasant Eyes-sclera non icteric , PERRLA/EOMI ENT-moist oral mucosa Neck-+ JVD , tranche midline, no thyromegaly Lungs-+ rales at base Heart-irregular Abdomen-soft, non tender Extremities-no lower ext edema Neuro-no focal neurological deficit Lab data as noted below. ASSESSMENT & PLAN: RAPID AFIB due to cardiomyopathy IV Esmolol D/madison started on IV Digoxin and beta daniel on IV Heparin will need to be on joint terminal attack controller anticoagulation with Coumadin vs newer agent will defer to Cardiology need to establish care with Cardiology and coag clinic SEVERE NON ISCHEMIC DILATED CARDIOMYOPATHY cardiac cath shows 1. Severe dilated cardiomyopathy by echocardiography. 2. Atrial fibrillation with rapid ventricular response. 3. Right dominant coronary anatomy with modest caliber vessels, but no coronary artery disease or obstruction. 4. Moderately severe pulmonary hypertension, mean PA pressure 39. added Aldactone cont diuresis will need close follow up with CHF clinic consideration for AICD device in future per cardiology DVT PROPHYLAXIS Iv Heparin DISPOSITION Discharge home when medically stable will need close follow up with Cardiology clinic in [facility] /CHF clinic need to establish care with family physician Vital Signs: Date Time Temp Pulse Resp B/P Pulse Ox O2 Delivery O2 Flow Rate FiO2 07/02/16 18:45 105 20 127/84 91 Nasal Cannula 2.0 07/02/16 18:15 108 18 119/81 91 Nasal Cannula 2.0 07/02/16 17:45 120 19 110/79 92 Nasal Cannula 2.0 07/02/16 17:30 134 18 116/84 91 Nasal Cannula 2.0 07/02/16 17:15 121 20 96/83 93 Nasal Cannula 2.0 07/02/16 17:07 95 07/02/16 17:00 94 24 117/80 91 Nasal Cannula 2.0 07/02/16 16:48 91 Nasal Cannula 2.0 07/02/16 16:48 36.9 136 21 128/89 91 Nasal Cannula 2.0 07/02/16 16:30 90 16 115/77 93 Nasal Cannula 2 07/02/16 16:25 112 16 102/82 93 Nasal Cannula 2 07/02/16 16:20 126 16 103/87 92 Nasal Cannula 2 07/02/16 16:15 104 16 104/89 93 Nasal Cannula 2 07/02/16 16:10 114 16 119/84 95 Nasal Cannula 2 07/02/16 16:05 132 14 118/84 92 Nasal Cannula 2 07/02/16 14:29 143 30 127/82 92 07/02/16 14:15 89 17 93 07/02/16 14:00 134 22 92 07/02/16 13:59 99 30 111/74 94 07/02/16 13:57 100 20 112/68 91 07/02/16 13:45 83 19 91 07/02/16 13:30 93 18 94 07/02/16 13:04 36.5 115 20 127/82 94 Nasal Cannula 2.0 07/02/16 12:59 92 23 113/71 94 07/02/16 12:45 134 27 07/02/16 12:30 85 18 96/ 91 07/02/16 12:15 85 23 92 07/02/16 12:00 36.5 81 21 107/76 88 07/02/16 11:45 112 23 90 07/02/16 11:45 112 23 90 07/02/16 11:30 158 19 90 07/02/16 11:30 92 Nasal Cannula 3.0 07/02/16 11:29 158 26 105/85 89 07/02/16 11:15 105 15 89 07/02/16 11:00 88 17 91 07/02/16 10:59 117 23 100/82 92 07/02/16 10:45 106 23 93 07/02/16 10:30 86 21 94 07/02/16 10:29 87 23 95/70 93 07/02/16 10:27 90 21 97/72 07/02/16 10:23 132 07/02/16 10:15 93 23 93 07/02/16 09:45 120 22 93 07/02/16 09:30 137 27 93 07/02/16 09:29 129 21 102/74 93 07/02/16 09:15 158 21 90 07/02/16 09:00 101 23 99/74 94 07/02/16 08:45 87 16 93 07/02/16 08:30 106 18 90 07/02/16 08:29 99 18 115/92 07/02/16 08:15 96 18 88 07/02/16 08:00 36.5 137 23 07/02/16 07:59 126 22 102/79 07/02/16 07:56 175 22 99/76 92 07/02/16 07:45 101 19 92 07/02/16 07:40 93 Nasal Cannula 2.0 07/02/16 07:30 181 19 94 07/02/16 07:15 174 18 95 07/02/16 07:00 163 28 94 07/02/16 07:00 100 21 99/76 95 Nasal Cannula 2.0 07/02/16 06:29 110 22 92/83 94 Nasal Cannula 2.0 07/02/16 05:59 132 25 114/78 94 Nasal Cannula 2.0 07/02/16 05:30 124 18 106/75 94 Nasal Cannula 2.0 07/02/16 05:22 115 115/65 94 Nasal Cannula 2.0 07/02/16 04:59 117 18 81/55 94 Nasal Cannula 2.0 07/02/16 04:30 113 21 86/64 94 Nasal Cannula 2.0 07/02/16 04:00 Room Air 07/02/16 03:59 36.5 82 24 82/63 94 Nasal Cannula 2.0 07/02/16 03:29 93 17 89/55 94 Nasal Cannula 2.0 07/02/16 02:59 112 22 83/56 96 Nasal Cannula 2.0 07/02/16 02:53 107 07/02/16 02:30 120 18 82/56 92 Nasal Cannula 2.0 07/02/16 01:59 98 19 94/65 95 Nasal Cannula 2.0 07/02/16 01:31 136 35 93/61 93 Nasal Cannula 2.0 07/02/16 00:59 125 24 112/76 95 Nasal Cannula 2.0 07/02/16 00:33 152 24 89/59 94 Nasal Cannula 2.0 07/02/16 00:00 36.6 106 21 105/68 07/02/16 00:00 106 21 105/68 07/01/16 23:59 Room Air 07/01/16 23:00 123 26 83/71 93 Nasal Cannula 2.0 07/01/16 22:00 111 96/70 Lab Results: Results Past 24 Hours Test 07/02/16 02:00 07/02/16 05:43 07/02/16 06:45 07/02/16 10:25 Range/Units Activated Partial Thromboplast Time 63.7 59.2 21.0-31.0 SECONDS Partial Thromboplastin Ratio 2.5 2.3 Potassium Level 4.1 4.2 3.5-5.1 mmol/L Magnesium Level 1.9 1.8-2.4 mg/dl White Blood Count 8.68 4.8-10.8 K/uL Red Blood Count 4.54 4.7-6.1 M/uL Hemoglobin 14.4 14.0-18.0 g/dL Hematocrit 41.1 42-52 % Mean Corpuscular Volume 90.5 80-100 fL Mean Corpuscular Hemoglobin 31.7 25-34 pg Mean Corpuscular Hemoglobin Concent 35.0 32-36 g/dl Platelet Count 193 130-400 K/uL Mean Platelet Volume 11.1 7.4-10.4 fL Neutrophils (%) (Auto) 49.8 % Lymphocytes (%) (Auto) 34.4 % Monocytes (%) (Auto) 9.4 % Eosinophils (%) (Auto) 5.5 % Basophils (%) (Auto) 0.7 % Neutrophils # (Auto) 4.31 1.4-6.5 K/uL Lymphocytes # (Auto) 2.99 1.2-3.4 K/uL Monocytes # (Auto) 0.82 0.11-0.59 K/uL Eosinophils # (Auto) 0.48 0-0.5 K/uL Basophils # (Auto) 0.06 0-0.2 K/uL RDW Standard Deviation 39.4 36.4-46.3 fL RDW Coefficient of Variation 12.2 11.5-14.5 % Immature Granulocyte % (Auto) 0.2 % Immature Granulocyte # (Auto) 0.02 0.00-0.02 K/uL Sodium Level 139 136-145 mmol/L Chloride Level 104 98-107 mmol/L Carbon Dioxide Level 28 21-32 mmol/L Anion Gap 7.0 3-11 mmol/L Blood Urea Nitrogen 21 7-18 mg/dl Creatinine 1.40 0.60-1.40 mg/dl Est Creatinine Clear Calc Drug Dose 77.5 ml/min Estimated GFR () 68.9 Estimated GFR (Non- 59.4 BUN/Creatinine Ratio 15.2 10-20 Random Glucose 100 70-99 mg/dl Calcium Level 8.2 8.5-10.1 mg/dl Total Bilirubin 0.8 0.2-1 mg/dl Aspartate Amino Transf (AST/SGOT) 22 15-37 U/L Alanine Aminotransferase (ALT/SGPT) 54 12-78 U/L Alkaline Phosphatase 59 45-117 U/L Total Protein 6.3 6.4-8.2 gm/dl Albumin 3.1 3.4-5.0 gm/dl Globulin 3.2 2.5-4.0 gm/dl Albumin/Globulin Ratio 1.0 0.9-2 Bedside Glucose 93 70-99 mg/dl Iron Level 93 35-175 mcg/dl Total Iron Binding Capacity 265 250-450 mcg/dl Transferrin 195 200-360 mg/dl Transferrin % Saturation 34 20-50 % Test 07/02/16 11:39 07/02/16 15:30 07/02/16 15:40 07/02/16 15:42 Range/Units Bedside Glucose 100 70-99 mg/dl Bedside Blood Gas pH (LAB) 7.35 7.36 7.33 7.35-7.45 Bedside Blood Gas pCO2 (LAB) 47 40 48 35-46 mmHg Bedside Blood Gas pO2 (LAB) 34 62 34 80-95 mmHg Bedside Blood Gas HCO3 (LAB) 26 23 25 19-24 meq/L Bedside Blood Gas Total CO2 27 24 27 24-31 mEq/l Bedside Blood Gas Base Excess (LAB) 0.0 -3.0 -1.0 -9-1.8 meq/L Bedside Blood Gas O2 Saturation 61.0 91.0 60.0 90-95 % Test 07/02/16 16:07 07/02/16 17:06 Range/Units Kaolin Activated Coagulation Time 137 94-140 SECONDS Bedside Glucose 89 70-99 mg/dl
[2016-07-02] MEDS ORDERED: WARFARIN SOD 5 MG TAB PO ONE (19:00)
[2016-07-02] MEDS ORDERED: FUROSEMIDE INJ 20 MG in SYRINGE 0 ML IV ONE (19:30)
--- NOTE | 2016-07-02 19:39 | CARDIAC CATH REPORT ---
REFERRING PHYSICIAN: Dr. Giovanni Llamas. INDICATIONS: Diffuse dilated cardiomyopathy, atrial fibrillation with rapid ventricular response, severe LV dysfunction. PROCEDURE: Right and left heart catheterization, coronary angiography by Dr. Ortiz on 07/02/2016. BRIEF CARDIAC HISTORY: The patient is a 45-year-old male presented with symptoms of exertional shortness of breath and fatigue and was found to be in atrial fibrillation with rapid ventricular response and clinical evidence of decompensated congestive heart failure by x-ray and physical examination, symptoms of class 3 severity of at least 1 week duration. Echocardiogram demonstrated severe LV dysfunction, EF less than 15%. He is referred for diagnostic cardiac catheterization. ACCESS: Right femoral artery, right femoral vein. CATHETERS: A 5-Latvian arterial sheath, a 6-Latvian venous sheath, a 5-Latvian JL4, a 5-Latvian 3DRC, a 5-Latvian straight pigtail, a 6-Latvian [place]Man[place] catheter. CONTRAST: Nonionic x75 mL. IV FLUIDS: Normal saline x38 mL. RADIATION EXPOSURE: Fluoroscopy 7.1 minutes, 868 milligrays, DAP score of 6047. MEDICATIONS: The patient received Benadryl 25 mg and Valium 5 mg p.o. Access sites were anesthetized locally with 1% Xylocaine. COMPLICATIONS: None. RESULTS: CORONARY ANGIOGRAPHY: LEFT MAIN: Long and moderate in caliber. It trifurcates to give rise to left anterior descending, a large ramus intermedius and left circumflex. There is no disease in the left main. Overall, caliber of coronaries is modest, but coronaries being right dominant in coronary anatomy. LEFT ANTERIOR DESCENDING: Left anterior descending is a long type 2 vessel giving rise to a large diagonal branch in its midportion. There is no disease in the left anterior descending. RAMUS INTERMEDIUS: This is a large-bifurcating vessel. There is mild physiologic taper of its origin and is free of disease otherwise. LEFT CIRCUMFLEX: Left circumflex is a moderate caliber vessel bifurcating into 2 sub branches. There is no disease in the left circumflex. RIGHT CORONARY ARTERY: The right coronary is dominant in distribution and gives rise to 2 small accessory PDAs and 2 posterior ventricular branches as well as a small primary PDA. There is no disease in the right coronary artery. LEFT VENTRICULAR ANGIOGRAPHY: LV angiography not performed due to significantly elevated left end-diastolic pressures. HEMODYNAMICS: Note studies were performed with the patient in atrial fibrillation, rate of average 105, right atrial pressure was mean of 27, V wave of 33 with marked respiratory variation. RV pressure was 49/20, PA pressure was 48/28 with a mean of 39. Pulmonary capillary wedge pressure mean was 30. Initial aortic root pressure was 117/89 with a mean of 101. LV pressure is 122/22 with an LVEDP of 33, simultaneous LVEDP and pulmonary capillary wedge pressure reveals good correlation with an LVEDP and pulmonary capillary wedge pressure of 30. There is no transaortic transient mitral valve gradient. Cardiac output was 5.7 liters per thermodilution and 4.5 liters per minute per Loren equation, RA saturation was 61%, PA saturation was 60% and aortic root saturation was 91%. There was no transaortic valve gradient on pullback. FINAL IMPRESSIONS: 1. Severe dilated cardiomyopathy by echocardiography. 2. Atrial fibrillation with rapid ventricular response. 3. Right dominant coronary anatomy with modest caliber vessels, but no coronary artery disease or obstruction. 4. Moderately severe pulmonary hypertension, mean PA pressure 39. RECOMMENDATIONS: Aggressive management of underlying cardiomyopathy and decompensated congestive heart failure/atrial fibrillation.
[2016-07-02] MEDS ORDERED: LEVALBUTEROL/IPRATROPIUM NEB INH STA (20:11)
[2016-07-02] MEDS ORDERED: IPRATROPIUM BROMIDE NEB SOLN 0.02% 2.5 ML VIAL INH ONE (20:30)
--- NOTE | 2016-07-02 20:51 | DIAGNOSTIC IMAGING REPORT ---
SINGLE VIEW CHEST CLINICAL HISTORY: Hypoxia. FINDINGS: An AP, portable, upright chest radiograph is compared to study performed earlier the same day 07/02/2016 and correlated with chest CT dated 07/01/2016. The examination is degraded by portable technique and apical lordotic positioning. The heart is enlarged. There is pulmonary vascular congestion with interstitial edema. This is unchanged from earlier today. Small pleural effusions are noted and there is bibasilar consolidation. No pneumothorax is seen. The bony thorax is grossly intact. IMPRESSION: 1. Cardiomegaly with evidence of congestive failure and interstitial edema. This is unchanged from earlier today. 2. Small pleural effusions. Electronically signed by: Ernie Vaughn M.D. 07/02/2016 8:49 PM
[2016-07-02] MEDS ORDERED: LEVALBUTEROL 1.25MG/0.5ML NEB INH SCH (21:00)
[2016-07-02] MEDS ORDERED: LEVALBUTEROL 1.25MG/0.5ML NEB INH ONE (21:00)
[2016-07-03 01:38] LABS: PARTIAL THROMBOPLASTIN RATIO 1.6
[2016-07-03] MEDS ORDERED: HEPARIN IV BOLUS 3,000 UNIT in SYRINGE 0 ML IV STA (01:59)
[2016-07-03] MEDS: HEPARIN 25,000 UNIT/500ML D5W 500 ML IV PRN ×3 (02:22→22:15)
[2016-07-03 04:30] VITALS: BP 104/75; PULSE 92; TEMP 36.9; O2SAT 92
[2016-07-03] MEDS ORDERED: METOPROLOL SUCC 25MG EXT REL TAB PO ONE ×2 (06:22→09:45)
[2016-07-03 06:27] LABS: BASO % 0.5 %; BASO ABS # 0.04 K/uL (0-0.2); COMPLETE YES; EOS % 7.1 %; HEMATOCRIT 39.9 % (42-52); IG% 0.4 %; LYMPH % 36.8 %; LYMPH ABS # 2.71 K/uL (1.2-3.4); MEAN CELL VOLUME 92.1 fL (80-100); MEAN CORPUSCULAR HEMOGLOBIN 32.1 pg (25-34); MEAN CORPUSCULAR HGB CONC 34.8 g/dl (32-36); MEAN PLATELET VOLUME 11.6 fL (7.4-10.4); MONO % 9.8 %; NEUT % 45.4 %; PLATELET COUNT 179 K/uL (130-400); RED BLOOD COUNT 4.33 M/uL (4.7-6.1); WHITE BLOOD COUNT 7.37 K/uL (4.8-10.8)
[2016-07-03 06:46] LABS: INR 1.1 (0.9-1.1); PARTIAL THROMBOPLASTIN RATIO 2.5
[2016-07-03 07:46] VITALS: BP 105/75; PULSE 104; TEMP 36.4; O2SAT 93
[2016-07-03] MEDS ORDERED: METOPROLOL SUCC 25MG EXT REL TAB PO SCH ×3 (09:00→21:00)
[2016-07-03 09:12] LABS: PARTIAL THROMBOPLASTIN RATIO 2.5
[2016-07-03 09:12] LABS: BUN/CREATININE RATIO 14.2 (10-20); CALCIUM 8.1 mg/dl (8.5-10.1); CREATININE 1.3 mg/dl (0.60-1.40); POTASSIUM 4.1 mmol/L (3.5-5.1)
[2016-07-03] MEDS: SPIRONOLACTONE 25 MG TAB PO SCH (09:26)
--- NOTE | 2016-07-03 09:50 | Cardiology Follow-Up ---
Subjective Subjective Date of Service: Jul 03, 2016. Pt evaluation today including: conversation w/ patient, physical exam, chart review, lab review, review of studies, review of inpatient medication list Additional Details: Pt seen and examined, states that he's feeling well. Not getting much sleep but denies cp, sob, palpitations, lightheadedness or dizziness. Tele reviewed: atrial fibrillation with variable rate response, some salvos of NSVT Problem List Medical Problems: (1) Atrial fibrillation with RVR Status: Acute Review of Systems Respiratory: + dyspnea on exertion, No cough, No dyspnea at rest, No hemoptysis , No problem reported, No see HPI, No shortness of breath, No sputum, No wheezing Cardiac: No PND, No chest pain, No claudication, No edema, No orthopnea, No palpitations, No problem reported, No see HPI Objective Vital Signs Last Vital Signs Documentation Date Time Temp Pulse Resp B/P Pulse Ox O2 Delivery O2 Flow Rate FiO2 07/03/16 08:00 Nasal Cannula 2.0 07/03/16 07:46 36.4 104 18 105/75 93 07/01/16 00:51 40 Physical Exam: General Appearance: WD/WN, no apparent distress Eyes: bilateral eyes EOMI, bilateral eyes PERRL, bilateral eyes normal inspection ENT: normal ENT inspection, hearing grossly normal, pharynx normal Neck: supple, no adenopathy, thyroid normal, no JVD, no carotid bruits, trachea midline Respiratory/Chest: chest non-tender, no respiratory distress, no accessory muscle use, + decreased breath sounds Cardiovascular: no edema, no JVD, no murmur, + tachycardia, + irregularly irregular Abdomen: normal bowel sounds, non tender, soft, no organomegaly, no pulsatile mass Extremities: normal inspection, no pedal edema, no calf tenderness 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 newly discovered cardiomyopathy nonischemic unclear etiology but treatment at least initially remains the same will uptitrate evidence based beta daniel cont spironolactone and digoxin will initiate tadeo prior to discharge may benefit from SA cyndie blocking agent as well (Entresto) but concerned about cost 2. Afib doubt the cause but will likely improve symptoms with mormon of sinus rhythm cont heparin gtt metoprolol being uptitrated coumadin started, preferred agent of NOAC in this clinical setting will perform LUDWIG/CV on Tuesday follow INR, goal 2-3 cont to monitor on tele
[2016-07-03] MEDS ORDERED: FUROSEMIDE 40 MG TAB PO ONE (10:00)
[2016-07-03 11:49] LABS: LYME DISEASE AB IGG NEG (NEG); LYME DISEASE AB IGM NEG (NEG)
[2016-07-03 12:03] VITALS: BP 129/77; PULSE 94; TEMP 36.8; O2SAT 94
--- NOTE | 2016-07-03 15:27 | Progress Note ---
Internal Med Progress Note Date of Service: Jul 03, 2016. Provider Documentation: SUBJECTIVE: remains in rapid afib HR variable between 90-120 's pt denies of any chest pain ,palpitation or SOB OBJECTIVE: Vital Signs-as noted below Exam: General-no sign of distress , pleasant Eyes-sclera non icteric , PERRLA/EOMI ENT-moist oral mucosa Neck-+ JVD , tranche midline, no thyromegaly Lungs-+ rales at base Heart-irregular , tachy Abdomen-soft, non tender Extremities-no lower ext edema Neuro-no focal neurological deficit Lab data as noted below. ASSESSMENT & PLAN: RAPID AFIB due to cardiomyopathy remains in rapid af ib pt started on PO Digoxin , added Beta daniel cardiology following closely will need to be on custodial anticoagulation with cont Coumadin with IV heparin Bridge goal INR 2-3 cont to monitor in tele SEVERE NON ISCHEMIC DILATED CARDIOMYOPATHY cardiac cath shows 1. Severe dilated cardiomyopathy by echocardiography. 2. Atrial fibrillation with rapid ventricular response. 3. Right dominant coronary anatomy with modest caliber vessels, but no coronary artery disease or obstruction. 4. Moderately severe pulmonary hypertension, mean PA pressure 39. added Aldactone PO Lasix added will need close follow up with CHF clinic repeat ECHO on Tuesday DVT PROPHYLAXIS Iv Heparin /Coumadin DISPOSITION cont tele monitoring Discharge home when medically stable will need close follow up with Cardiology clinic in [facility] /CHF clinic need to establish care with family physician Vital Signs: Date Time Temp Pulse Resp B/P Pulse Ox O2 Delivery O2 Flow Rate FiO2 07/03/16 16:15 103 07/03/16 16:00 Nasal Cannula 2.0 07/03/16 15:29 36.5 118 22 146/99 94 Nasal Cannula 2.0 07/03/16 12:03 36.8 94 18 129/77 94 Nasal Cannula 3.0 07/03/16 12:00 Nasal Cannula 2.0 07/03/16 08:00 Nasal Cannula 2.0 07/03/16 07:46 36.4 104 18 105/75 93 Nasal Cannula 3.5 07/03/16 04:30 36.9 92 18 104/75 92 Nasal Cannula 2.0 07/03/16 04:00 Nasal Cannula 07/02/16 23:59 Nasal Cannula 07/02/16 23:02 36.5 133 21 122/73 92 Room Air 2.5 07/02/16 22:50 133 07/02/16 22:00 160 11 07/02/16 21:56 36.5 120 23 110/65 93 Nasal Cannula 2.5 07/02/16 21:41 115 16 93 Nasal Cannula 4.0 07/02/16 21:00 121 19 93 07/02/16 20:59 90 24 156/78 94 07/02/16 20:01 98 22 136/94 92 07/02/16 20:00 97 Nasal Cannula 2.0 07/02/16 20:00 36.8 92 17 93 07/02/16 19:59 90 19 121/104 92 07/02/16 19:54 104 22 132/83 92 Lab Results: Results Past 24 Hours Test 07/03/16 01:00 07/03/16 05:33 07/03/16 08:11 07/03/16 10:05 Range/Units Activated Partial Thromboplast Time 42.7 65.0 64.1 21.0-31.0 SECONDS Partial Thromboplastin Ratio 1.6 2.5 2.5 White Blood Count 7.37 4.8-10.8 K/uL Red Blood Count 4.33 4.7-6.1 M/uL Hemoglobin 13.9 14.0-18.0 g/dL Hematocrit 39.9 42-52 % Mean Corpuscular Volume 92.1 80-100 fL Mean Corpuscular Hemoglobin 32.1 25-34 pg Mean Corpuscular Hemoglobin Concent 34.8 32-36 g/dl Platelet Count 179 130-400 K/uL Mean Platelet Volume 11.6 7.4-10.4 fL Neutrophils (%) (Auto) 45.4 % Lymphocytes (%) (Auto) 36.8 % Monocytes (%) (Auto) 9.8 % Eosinophils (%) (Auto) 7.1 % Basophils (%) (Auto) 0.5 % Neutrophils # (Auto) 3.35 1.4-6.5 K/uL Lymphocytes # (Auto) 2.71 1.2-3.4 K/uL Monocytes # (Auto) 0.72 0.11-0.59 K/uL Eosinophils # (Auto) 0.52 0-0.5 K/uL Basophils # (Auto) 0.04 0-0.2 K/uL RDW Standard Deviation 41.4 36.4-46.3 fL RDW Coefficient of Variation 12.2 11.5-14.5 % Immature Granulocyte % (Auto) 0.4 % Immature Granulocyte # (Auto) 0.03 0.00-0.02 K/uL Prothrombin Time 12.0 9.0-12.0 SECONDS Prothromb Time International Ratio 1.1 0.9-1.1 Sodium Level 140 136-145 mmol/L Potassium Level 4.1 3.5-5.1 mmol/L Chloride Level 105 98-107 mmol/L Carbon Dioxide Level 28 21-32 mmol/L Anion Gap 7.0 3-11 mmol/L Blood Urea Nitrogen 18 7-18 mg/dl Creatinine 1.30 0.60-1.40 mg/dl Est Creatinine Clear Calc Drug Dose 82.7 ml/min Estimated GFR () 75.3 Estimated GFR (Non- 65.0 BUN/Creatinine Ratio 14.2 10-20 Random Glucose 93 70-99 mg/dl Calcium Level 8.1 8.5-10.1 mg/dl Magnesium Level 2.0 1.8-2.4 mg/dl Lyme Disease IgG Antibody NEG NEG Lyme Disease IgM Antibody NEG NEG
[2016-07-03 15:29] VITALS: BP 146/99; PULSE 118; TEMP 36.5; O2SAT 94
[2016-07-03] MEDS: DIGOXIN 0.125 MG TAB PO SCH (16:15)
[2016-07-03] MEDS: WARFARIN SOD 5 MG TAB PO SCH (16:16)
[2016-07-03] MEDS ORDERED: METOPROLOL TARTRATE 1 MG/ML VIAL IV PRN (19:45)
[2016-07-03 19:51] VITALS: BP 118/77; PULSE 122; TEMP 36.8; O2SAT 93
[2016-07-03] MEDS: ONDANSETRON INJ 2 MG/ML 2 ML VIAL IV PRN (20:49)
[2016-07-03 23:46] VITALS: BP 95/77; PULSE 108; TEMP 37.3; O2SAT 91
[2016-07-03] MEDS ORDERED: DIGOXIN IV 250 MCG in SYRINGE 9 ML IV STA (23:55)
[2016-07-04] VITALS (7 sets, daily range): BP systolic 105–127; BP diastolic 64–80; PULSE 83–115; TEMP 36.6–36.8; O2SAT 91–95
[2016-07-04 06:24] LABS: BASO % 0.2 %; BASO ABS # 0.01 K/uL (0-0.2); COMPLETE YES; EOS % 7.3 %; IG% 0.5 %; LYMPH % 14.6 %; LYMPH ABS # 0.96 K/uL (1.2-3.4); MEAN CELL VOLUME 91.3 fL (80-100); MEAN CORPUSCULAR HEMOGLOBIN 32.6 pg (25-34); MEAN CORPUSCULAR HGB CONC 35.8 g/dl (32-36); MEAN PLATELET VOLUME 11.1 fL (7.4-10.4); MONO % 6.4 %; PLATELET COUNT 168 K/uL (130-400); RED BLOOD COUNT 4.38 M/uL (4.7-6.1); WHITE BLOOD COUNT 6.56 K/uL (4.8-10.8)
[2016-07-04 06:42] LABS: INR 1.4 (0.9-1.1); PARTIAL THROMBOPLASTIN RATIO 2.4; PROTHROMBIN TIME (PATIENT) 15.4 SECONDS (9.0-12.0)
[2016-07-04] MEDS: FUROSEMIDE 40 MG TAB PO SCH (08:57)
[2016-07-04] MEDS: SPIRONOLACTONE 25 MG TAB PO SCH (08:57)
[2016-07-04 09:17] LABS: BUN/CREATININE RATIO 14.6 (10-20); CALCIUM 8.2 mg/dl (8.5-10.1); CREATININE 1.1 mg/dl (0.60-1.40); POTASSIUM 4.1 mmol/L (3.5-5.1)
--- NOTE | 2016-07-04 09:40 | Cardiology Follow-Up ---
Subjective Subjective Date of Service: Jul 04, 2016. Pt evaluation today including: conversation w/ patient, physical exam, chart review, lab review, review of studies, review of inpatient medication list Additional Details: Pt seen and examined, states that he feels well. Some constipation last PM. Otherwise, denies cp, sob, palpitations, lightheadedness or dizziness. Tele reviewed: atrial fibrillation with rvr in 100's-130's. continued short salvos of nsvt Problem List Medical Problems: (1) Atrial fibrillation with RVR Status: Acute Review of Systems Respiratory: + dyspnea on exertion, No cough, No dyspnea at rest, No hemoptysis , No problem reported, No see HPI, No shortness of breath, No sputum, No wheezing Cardiac: No PND, No chest pain, No claudication, No edema, No orthopnea, No palpitations, No problem reported, No see HPI Objective Vital Signs Last Vital Signs Documentation Date Time Temp Pulse Resp B/P Pulse Ox O2 Delivery O2 Flow Rate FiO2 07/04/16 08:17 36.6 110 20 110/80 94 Nasal Cannula 2.0 07/01/16 00:51 40 Physical Exam: General Appearance: WD/WN, no apparent distress Eyes: bilateral eyes EOMI, bilateral eyes PERRL, bilateral eyes normal inspection ENT: normal ENT inspection, hearing grossly normal, pharynx normal Neck: supple, no adenopathy, thyroid normal, no JVD, no carotid bruits, trachea midline Respiratory/Chest: chest non-tender, no respiratory distress, no accessory muscle use, + decreased breath sounds Cardiovascular: no edema, no JVD, no murmur, + tachycardia, + irregularly irregular Abdomen: normal bowel sounds, non tender, soft, no organomegaly, no pulsatile mass Extremities: normal inspection, no pedal edema, no calf tenderness 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 newly discovered cardiomyopathy nonischemic unclear etiology but treatment at least initially remains the same nsvt is concerning will contact "LifeVest" for initial 30 days after d/c at least will uptitrate evidence based beta daniel cont spironolactone and digoxin will initiate tadeo prior to discharge, bp still running low may benefit from SA cyndie blocking agent as well (Entresto) but concerned about cost 2. Afib doubt the cause but will likely improve symptoms with synagogue of sinus rhythm cont heparin gtt metoprolol being uptitrated coumadin started, preferred agent of NOAC in this clinical setting will perform LUDWIG/CV on Tuesday follow INR, goal 2-3 will likely give increased dose of metoprolol this PM then back off in AM cont to monitor on tele
[2016-07-04] MEDS: METOPROLOL SUCC 50MG EXT REL TAB PO SCH ×2 (11:12→20:44)
[2016-07-04] MEDS: WARFARIN SOD 5 MG TAB PO SCH (16:31)
[2016-07-04] MEDS: DIGOXIN 0.125 MG TAB PO SCH (16:31)
--- NOTE | 2016-07-04 16:59 | Progress Note ---
Internal Med Progress Note Date of Service: Jul 04, 2016. Provider Documentation: SUBJECTIVE: offers no complain of SOB , chest heaviness or palpitation remains in Afib with HR between 10-120 no dizzy spell or lightheadedness OBJECTIVE: Vital Signs-as noted below Exam: General-no sign of distress , pleasant Eyes-sclera non icteric , PERRLA/EOMI ENT-moist oral mucosa Neck-+ JVD , tranche midline, no thyromegaly Lungs-+ rales at base Heart-irregular , tachy Abdomen-soft, non tender Extremities-no lower ext edema Neuro-no focal neurological deficit Lab data as noted below. ASSESSMENT & PLAN: RAPID AFIB due to cardiomyopathy remains in rapid af ib cardiology following closely continued with Po Digoxin Lopressor dose increased to 50mg PO BID will need to be on detention anticoagulation with Coumadin cont Coumadin with IV heparin Bridge goal INR 2-3 INR 1.4 today ; iV heparin can be d/madison when INR ~2 cont to monitor in tele SEVERE NON ISCHEMIC DILATED CARDIOMYOPATHY WITH SYSTOLIC DYSFUNCTION echo : cardiac cath shows 1. Severe dilated cardiomyopathy by echocardiography.EF 10-15 % 2. Atrial fibrillation with rapid ventricular response. 3. Right dominant coronary anatomy with modest caliber vessels, but no coronary artery disease or obstruction. 4. Moderately severe pulmonary hypertension, mean PA pressure 39. added Aldactone /PO Lasix may need addition of ACEI -as BP improves , will defer to Cardiology follow Vol status, daily wt given significant cardiac reserve and persistent arrhythmia-high risk for sudden cardiac / cardiac arrhythmia pt will need to be on " life Vest " on discharge followed by evaluation for AICD if cardiac function does not improve in future will need close follow up with CHF clinic repeat ECHO on Tuesday DVT PROPHYLAXIS Iv Heparin /Coumadin DISPOSITION cont tele monitoring Discharge home when medically stable will need Life Vest will need close follow up with Cardiology clinic in [facility] /CHF clinic need to establish care with family physician Vital Signs: Date Time Temp Pulse Resp B/P Pulse Ox O2 Delivery O2 Flow Rate FiO2 07/04/16 16:31 94 07/04/16 16:00 Room Air 07/04/16 15:52 36.8 86 18 115/78 92 Room Air 07/04/16 12:00 Nasal Cannula 2.0 07/04/16 12:00 36.8 83 18 114/64 92 Room Air 07/04/16 08:17 36.6 110 20 110/80 94 Nasal Cannula 2.0 07/04/16 08:00 Nasal Cannula 2.0 07/04/16 04:21 36.8 115 105/76 93 Nasal Cannula 2.0 07/04/16 04:00 Nasal Cannula 07/04/16 00:06 136 07/03/16 23:59 Nasal Cannula 07/03/16 23:46 37.3 108 20 95/77 91 Nasal Cannula 2.0 07/03/16 22:34 131 115/74 07/03/16 20:00 Nasal Cannula 07/03/16 19:51 36.8 122 22 118/77 93 Nasal Cannula 2.0 Lab Results: Results Past 24 Hours Test 07/04/16 05:49 Range/Units White Blood Count 6.56 4.8-10.8 K/uL Red Blood Count 4.38 4.7-6.1 M/uL Hemoglobin 14.3 14.0-18.0 g/dL Hematocrit 40.0 42-52 % Mean Corpuscular Volume 91.3 80-100 fL Mean Corpuscular Hemoglobin 32.6 25-34 pg Mean Corpuscular Hemoglobin Concent 35.8 32-36 g/dl Platelet Count 168 130-400 K/uL Mean Platelet Volume 11.1 7.4-10.4 fL Neutrophils (%) (Auto) 71.0 % Lymphocytes (%) (Auto) 14.6 % Monocytes (%) (Auto) 6.4 % Eosinophils (%) (Auto) 7.3 % Basophils (%) (Auto) 0.2 % Neutrophils # (Auto) 4.66 1.4-6.5 K/uL Lymphocytes # (Auto) 0.96 1.2-3.4 K/uL Monocytes # (Auto) 0.42 0.11-0.59 K/uL Eosinophils # (Auto) 0.48 0-0.5 K/uL Basophils # (Auto) 0.01 0-0.2 K/uL RDW Standard Deviation 40.7 36.4-46.3 fL RDW Coefficient of Variation 12.1 11.5-14.5 % Immature Granulocyte % (Auto) 0.5 % Immature Granulocyte # (Auto) 0.03 0.00-0.02 K/uL Prothrombin Time 15.4 9.0-12.0 SECONDS Prothromb Time International Ratio 1.4 0.9-1.1 Activated Partial Thromboplast Time 61.6 21.0-31.0 SECONDS Partial Thromboplastin Ratio 2.4 Sodium Level 139 136-145 mmol/L Potassium Level 4.1 3.5-5.1 mmol/L Chloride Level 103 98-107 mmol/L Carbon Dioxide Level 27 21-32 mmol/L Anion Gap 9.0 3-11 mmol/L Blood Urea Nitrogen 16 7-18 mg/dl Creatinine 1.10 0.60-1.40 mg/dl Est Creatinine Clear Calc Drug Dose 97.5 ml/min Estimated GFR () 92.2 Estimated GFR (Non- 79.5 BUN/Creatinine Ratio 14.6 10-20 Random Glucose 96 70-99 mg/dl Calcium Level 8.2 8.5-10.1 mg/dl Digoxin Level 1.0 0.8-2.0 ng/ml
[2016-07-04] MEDS ORDERED: NURSING VERBAL MED ORDER ONE (18:15)
[2016-07-05] VITALS (18 sets, daily range): BP systolic 95–133; BP diastolic 63–106; PULSE 82–146; TEMP 36.4–36.5; O2SAT 90–97
[2016-07-05] MEDS: HEPARIN 25,000 UNIT/500ML D5W 500 ML IV PRN (02:38)
[2016-07-05 07:04] LABS: BASO % 0.4 %; BASO ABS # 0.02 K/uL (0-0.2); COMPLETE YES; EOS % 10.2 %; HEMATOCRIT 41.3 % (42-52); IG% 0.4 %; LYMPH % 37.7 %; LYMPH ABS # 2.11 K/uL (1.2-3.4); MEAN CORPUSCULAR HEMOGLOBIN 31.7 pg (25-34); MEAN CORPUSCULAR HGB CONC 34.9 g/dl (32-36); MONO % 13.2 %; NEUT % 38.1 %; PLATELET COUNT 176 K/uL (130-400); RED BLOOD COUNT 4.54 M/uL (4.7-6.1)
[2016-07-05 07:27] LABS: INR 2.3 (0.9-1.1); PARTIAL THROMBOPLASTIN RATIO 4.2; PROTHROMBIN TIME (PATIENT) 25.8 SECONDS (9.0-12.0)
[2016-07-05 07:37] LABS: BUN/CREATININE RATIO 10.2 (10-20); CALCIUM 8.6 mg/dl (8.5-10.1); CREATININE 1.2 mg/dl (0.60-1.40); MAGNESIUM 2.1 mg/dl (1.8-2.4); POTASSIUM 4.2 mmol/L (3.5-5.1)
[2016-07-05] MEDS ORDERED: CANNULA ONE ×2 (10:14)
[2016-07-05] MEDS ORDERED: GLYCOPYRROLATE INJ 0.2 MG/ML VIAL ONE (10:14)
[2016-07-05] MEDS ORDERED: FENTANYL CITRATE INJ 50 MCG/1 ML 2 ML VIAL ONE ×2 (10:14→11:25)
[2016-07-05] MEDS ORDERED: BENZOCAIN/TETRACA/BUTAM SPRAY 200 APPLN/20 GM SPRY ONE (10:14)
[2016-07-05] MEDS ORDERED: MIDAZOLAM HCL 1 MG/ML 2ML VIAL ONE (10:14)
--- NOTE | 2016-07-05 11:13 | Procedure Note ---
Pre-Mod Sedation Assessment General Date of Moderate Sedation: Jul 05, 2016. Vital Signs: Vital Signs Past 12 Hours Date Time Temp Pulse Resp B/P Pulse Ox O2 Delivery O2 Flow Rate FiO2 07/05/16 10:17 112 16 124/75 94 Room Air 07/05/16 08:00 Nasal Cannula 07/05/16 07:42 36.4 82 20 114/79 93 Nasal Cannula 2.5 07/05/16 04:05 Nasal Cannula 07/05/16 03:57 36.5 84 18 95/76 95 Nasal Cannula 2.0 07/05/16 00:10 95 Nasal Cannula 07/04/16 23:42 36.6 114 18 117/76 95 Nasal Cannula 2.0 Review Cardiovascular: + tachycardia, + irregularly irregular Abdomen: normal bowel sounds, non tender, soft, no organomegaly, no pulsatile mass Lungs: chest non-tender, lungs clear, normal breath sounds, no respiratory distress, no accessory muscle use Airway Class: II Pre-Sedation Airway Assessment Oral Cavity: WNL Short Thick Neck: No Hx of Sleep Apnea: No Smoking Status: Never Smoker Notes The planned sedation has been discussed with the patient and consent obtained. I have identified the patient, determined the appropriateness of sedation and have assessed the patient immediately prior to the procedure. All medicine(s) and interventions are by my order.
--- NOTE | 2016-07-05 11:47 | Procedure Note ---
Post-Mod Sedation Assessment General Date of Moderate Sedation Jul 05, 2016. Vital Signs: Vital Signs Past 12 Hours Date Time Temp Pulse Resp B/P Pulse Ox O2 Delivery O2 Flow Rate FiO2 07/05/16 10:17 112 16 124/75 94 Room Air 07/05/16 08:00 Nasal Cannula 07/05/16 07:42 36.4 82 20 114/79 93 Nasal Cannula 2.5 07/05/16 04:05 Nasal Cannula 07/05/16 03:57 36.5 84 18 95/76 95 Nasal Cannula 2.0 07/05/16 00:10 95 Nasal Cannula Review - Discharge Criteria Vital Signs Stable: Yes Alert/Oriented/Conversant: Yes Returned to Baseline Mental St: Yes Nausea Absent/Minimal: Yes Pain/Discomfort/Absent/Minimal: Yes Normal/Baseline Respirations: Yes Active Bleeding?: No Pt Received D/C Instructions: No Prescriptions Given: None
--- NOTE | 2016-07-05 11:49 | [facility] Post Operative Brief Note ---
Immediate Operative Summary Operative Date Jul 05, 2016. Pre-Operative Diagnosis afib with rvr Post-Operative Diagnosis PAF Procedure(s) Performed LUDWIG/CV Surgeon Farhad Copyright Manager Surgeon(s) iVta NEFF Estimated Blood Loss none Findings no thrombus, successful cardioversion to sinus rhythm. Specimens none Anesthesia Versed 6mg, Fentanyl 150mg Complication(s) None Disposition CPL
--- NOTE | 2016-07-05 11:54 | Cardiology Follow-Up ---
Subjective Subjective Date of Service: Jul 05, 2016. Pt evaluation today including: conversation w/ patient, conversation w/ family , physical exam, chart review, lab review, review of studies, review of inpatient medication list Additional Details: Pt seen and examined, states that he continues to feel well. Discussed life vest for primary prevention, cost prohibitive for patient, will not order. Denies cp, sob, palpitations, lightheadedness or dizziness. Tele reviewed: afib with rvr over night Problem List Medical Problems: (1) Atrial fibrillation with RVR Status: Acute Review of Systems Respiratory: + dyspnea on exertion, No cough, No dyspnea at rest, No hemoptysis , No problem reported, No see HPI, No shortness of breath, No sputum, No wheezing Cardiac: No PND, No chest pain, No claudication, No edema, No orthopnea, No palpitations, No problem reported, No see HPI Objective Vital Signs Last Vital Signs Documentation Date Time Temp Pulse Resp B/P Pulse Ox O2 Delivery O2 Flow Rate FiO2 07/05/16 10:17 112 16 124/75 94 Room Air 07/05/16 07:42 36.4 2.5 07/01/16 00:51 40 Physical Exam: General Appearance: WD/WN, no apparent distress Eyes: bilateral eyes EOMI, bilateral eyes PERRL, bilateral eyes normal inspection ENT: normal ENT inspection, hearing grossly normal, pharynx normal Neck: supple, no adenopathy, thyroid normal, no JVD, no carotid bruits, trachea midline Respiratory/Chest: chest non-tender, no respiratory distress, no accessory muscle use, + decreased breath sounds Cardiovascular: no edema, no JVD, no murmur, + tachycardia, + irregularly irregular Abdomen: normal bowel sounds, non tender, soft, no organomegaly, no pulsatile mass Extremities: normal inspection, no pedal edema, no calf tenderness 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 newly discovered cardiomyopathy nonischemic unclear etiology but treatment at least initially remains the same cont toprol, spironolactone and digoxin will initiate tadeo prior to discharge, low dose lisinopril 2.5mg daily may benefit from SA cyndie blocking agent as well (Entresto) but concerned about cost repeat echo in 1 month f/u with me in 1 month, my office to arrange bmp in 1 week 2. Afib doubt the cause but will likely improve symptoms with rastafarian of sinus rhythm successful cardioversion to sinus will monitor hr but likely d/c on toprol xl 50mg daily, starting tomorrow, give pm dose of toprol prior to d/c INR therapeutic, will need coag clinic as outpatient ok to d/c this pm after recovers from sedation no driving for [address] under his cdl
[2016-07-05] MEDS ORDERED: LISINOPRIL 2.5 MG TAB PO ONE (12:50)
[2016-07-05] MEDS ORDERED: LSN25 PO (13:44)
[2016-07-05] MEDS ORDERED: NTRSLP4 SL (13:44)
[2016-07-05] MEDS ORDERED: SPR25 PO (13:44)
[2016-07-05] MEDS ORDERED: CMD5 PO (13:44)
[2016-07-05] MEDS ORDERED: LNX125 PO (13:44)
[2016-07-05] MEDS ORDERED: TPRSR50 PO (13:44)
[2016-07-05] MEDS ORDERED: LSX40 PO (13:44)
--- NOTE | 2016-07-05 13:45 | Discharge Instructions ---
Discharge Instructions Admission Reason for Admission: Respiratory Failure, Acute Discharge Discharge Diagnosis / Problem: AFIB /RVR /SEVERE NON ISCHEMIC CARDIOMYOPATHY Discharge Goals Goal(s): Increase independence, Improve disease control, Diagnostic testing, Therapeutic intervention Activity Recommendations Activity Limitations: as noted below ( TOLERATED ) . Instructions / Follow-Up Instructions / Follow-Up CARDIOLOGY FOLLOW UP WITH DR ZHANG IN 4 WEEKS AT [facility] -OFFICE WILL CALL WITH APPOINTMENT IT IS VERY IMPORTANT TO ESTABLISH CARE WITH FAMILY PHYSICIAN -NEEDS CLOSE MONITORING OF HYPERTENSION /NEED BLOOD WORK MONITORING FOR COUMADIN PLEASE FOLLOW UP WITH [facility] PHONE # [phone] TO SET UP AN APPOINTMENT SOON POSSIBLE YOU WILL NEED PERIODIC BLOOD WORK TEST ( PT/INR ) MONITORING AND COUMADIN DOSE ADJUSTMENT Call your Primary Care doctor if any of the following symptoms or problems start or get worse: * Shortness of breath or difficulty breathing * Wake up at night short of breath * Chest pain * Cough * Swelling of your hands, feet, or legs * More fatigued or tired with your normal activity * Palpitations - sudden fast heart beats WEIGHT * Weigh yourself every morning after using the bathroom. * Use the same scale. * Wear the same amount of clothing. * Write your weight down on a chart. * Call your Primary Care doctor if you gain more than 2-3 pounds in 1-2 days. MEDICATIONS * Use this discharge instruction sheet for medication instructions. * Take your medications at the time your doctor ordered. * Do not skip a dose of your medicines. * If you miss a dose of medicine, take it as soon as possible, but DO NOT DOUBLE A DOSE. * Read your medicine information when you get home. * Know all of the side effects of your medicine. If in doubt, ask your pharmacist * Call your Primary Care doctor's office if you have any side effects. * Be sure all of your doctors know what medicine and herbs you take (including cold, flu, and herbal medicine). Take the following with you to your follow-up doctor appointments: * Weight Chart * Medication List * List of questions Do not drink excessive alcohol, beer or wine. Current Hospital Diet Patient's current hospital diet: AHA Diet (Heart Healthy) Discharge Diet Recommended Diet: AHA Diet (Heart Healthy) Procedures Procedures Performed: LUDWIG/CV Pending Studies Studies pending at discharge: yes List of pending studies: LAB WORK : BASIC METABOLIC PANEL PT/INR IN A WEEK Work Instructions Additional Instructions: DO NOT DRIVE FOR NEXT 1 DAY SHOULD NOT OPERATE COMMERTICAL HEAVY VEHICLES WITHOUT EVALUATED BY CARDIOLOGY Medical Emergencies . Who to Call and When: Call 911 or go to the Emergency Room if: * If at any time you feel your situation is an emergency * You have tightness or pain in your chest that does not go away with rest or Nitroglycerin * You are very short of breath even with rest . Non-Emergent Contact Non-Emergency issues call your: Primary Care Provider, Machine Grainer . . "Provider Documentation" section prepared by Deepika Costa. VTE Core Measure Inpt VTE Proph given/why not?: Warfarin (Coumadin) [place] Drug Monitoring Program Search Results: no issues identified
[2016-07-05] MEDS: SPIRONOLACTONE 25 MG TAB PO SCH (14:02)
[2016-07-05] MEDS: METOPROLOL SUCC 50MG EXT REL TAB PO SCH (14:02)
[2016-07-05] MEDS: FUROSEMIDE 40 MG TAB PO SCH (14:02)
--- NOTE | 2016-07-05 15:34 | Procedure Note ---
Procedure Note Informed consent obtained. Pt prepped Received a total of 6mg of Versed and 150mg of Fentanyl adequate sedation attained LUDWIG showed no left atrial thrombus smoke present in LA but velocities approaching 4 m/s in the appendage Pt repositioned 200J of synchronized direct current energy delivered successful conversion to sinus rhythm tolerated well results reviewed with his recover in cpl per protocol
--- NOTE | 2016-07-05 15:47 | Discharge Summary ---
Discharge Summary Admission Date: Jul 01, 2016 at 01:49 Discharge Date: Jul 05, 2016 Discharge Disposition: Home Principal Diagnosis: AFIB /RVR /SEVERE NON ISCHEMIC CARDIOMYOPATHY Procedures: LUDWIG/ DC CARDIO VERSION Consultations: [facility] CARDIOLOGY Pending Studies/Follow-Up: CARDIOLOGY FOLLOW UP WITH DR LLAMAS IN 4 WEEKS AT [facility] -OFFICE WILL CALL WITH APPOINTMENT IT IS VERY IMPORTANT TO ESTABLISH CARE WITH FAMILY PHYSICIAN -NEEDS CLOSE MONITORING OF HYPERTENSION /NEED BLOOD WORK MONITORING FOR COUMADIN PLEASE FOLLOW UP WITH COAGULATION CLINIC [facility] PHONE # [phone] TO SET UP AN APPOINTMENT SOON POSSIBLE YOU WILL NEED PERIODIC BLOOD WORK TEST ( PT/INR ) MONITORING AND COUMADIN DOSE ADJUSTMENT List of pending studies: LAB WORK : BASIC METABOLIC PANEL PT/INR IN A WEEK Medication Reconciliation New Medications: Digoxin (Digoxin) 0.125 Mg Tab 0.125 MG PO DAILY@16 for 30 Days, #30 TAB 6 Refills Furosemide (Furosemide) 40 Mg Tab 40 MG PO QAM for 30 Days, #30 TAB 6 Refills Lisinopril (Lisinopril) 2.5 Mg Tab 2.5 MG PO QAM for 30 Days, #30 TAB 6 Refills Metoprolol Succinate (Metoprolol Succinate ER) 50 Mg Tabcr 50 MG PO BID for 30 Days, #60 TABS 6 Refills Nitroglycerin (Nitrostat) 0.4 Mg/1 Tab Subl 0.4 MG SL UD PRN for Chest Pain for 30 Days, #30 TABS 6 Refills Spironolactone (Spironolactone) 25 Mg Tab 12.5 MG PO QAM for 30 Days, #15 TAB 6 Refills Warfarin Sod (Coumadin) 5 Mg Tab 5 MG PO DAILY@16 for 30 Days, #30 TAB 6 Refills Referrals At Discharge Follow up Referrals: Physician Referral - Please Call For Appointment with Giovanni Llamas D.O. Admission Information HPI (per Admitting provider): DATE OF ADMISSION: 07/01/2016 The patient has no primary care doctor. CHIEF COMPLAINT: Chest pain. HISTORY OF PRESENT ILLNESS: Medical history significant for hypertension (px refusing meds). Few days' history of chest pain, pleuritic, with some shortness of breath, mostly on exertion, dry cough symptoms. Patient also noted palpitations, fast heartbeat. No fever, no chills. Denies unusual leg swelling or weight gain. At the Emergency Room, noted to be in rapid atrial fibrillation. heart rate noted to be 140s. Patient given NSS, Cardizem and Lopressor IV in the ER. At some point, O2 sats dropped to 86 on room air. PX had to be started on BiPAP. MEDICAL HISTORY: As above. He has been told that he has high blood pressure in the past, but he did not taken medication. also gives info that px snores; apneic episodes during sleep may be possible as per OPERATIONS: Appendectomy. HOME MEDICATIONS: None. ALLERGIES: No known drug allergies. FAMILY HISTORY: Atrial fibrillation. PERSONAL AND SOCIAL HISTORY: Nonsmoker, no chronic intake of alcoholic beverages. 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 Physical Exam (per Admitting): REVIEW OF SYSTEMS: As per HPI, all other ROS negative. PHYSICAL EXAMINATION: VITAL SIGNS: Blood pressure was noted to be 170/92, pulse rate 140 later 126., RR 20, temperature 36.8, sats 94 on room air later 90s on BiPAP GENERAL: Noted to be slightly anxious, obese, some respiratory distress. SKIN : normal color. HEENT: [place] palpable conjunctivae. Moist buccal mucosa. BiPAP in place. NECK: Short. LUNGS: Bibasilar crackles. HEART: Irregular, tachycardic. ABDOMEN: Some distention. EXTREMITIES: No edema. No tenderness. NEUROLOGIC: No gross focality. Hospital Course feels fine , no complain of chest pain or SOB adequate oxygenation in room air ambulating independently s/p LUDWIG cardioversion this AM remains in sinus rhythm INR therapeutic stable to be discharged home Exam: General-no sign of distress , pleasant Eyes-sclera non icteric , PERRLA/EOMI ENT-moist oral mucosa Neck-+ JVD , tranche midline, no thyromegaly Lungs-+ rales at base Heart-irregular , tachy Abdomen-soft, non tender Extremities-no lower ext edema Neuro-no focal neurological deficit RAPID AFIB new onset possible due to cardiomyopathy S/p LUDWIG followed by DC cardioversion today remains in sinus rhythm ,no complain of SOB , Chest pain appreciate cardiology eval continued with Po Digoxin Lopressor dose increased to 50mg PO BID will need to be on long term care social worker anticoagulation with Coumadin INR 2,4 ; iV heparin D/madison will need follow up with Coagulation clinic repeat PT/INR in a week SEVERE NON ISCHEMIC DILATED CARDIOMYOPATHY WITH SYSTOLIC DYSFUNCTION echo : Moderately dilated LV chamber size with normal wall thickness. Severely reduced LV systolic function with severe global hypokinesis, EF 10-15%. Grade III diastolic dysfunction. Moderately dilated RV chamber size with severely reduced RV systolic function by TAPSE. cardiac cath shows 1. Severe dilated cardiomyopathy by echocardiography.EF 10-15 % 2. Atrial fibrillation with rapid ventricular response. 3. Right dominant coronary anatomy with modest caliber vessels, but no coronary artery disease or obstruction. 4. Moderately severe pulmonary hypertension, mean PA pressure 39. cont Aldactone , Lasix Added low dose ACEI Lisinopril 2.5 mg PO daily repeat BMP in a week ECHO to be repeated in a month given significant cardiac reserve and persistent arrhythmia-high risk for sudden cardiac / cardiac arrhythmia pt is self pay -can not afford " LIfe Vest " needs close follow up with Cardiology Dr Llamas in clinic DVT PROPHYLAXIS Coumadin DISPOSITION Discharge home today Cardiology follow up with [facility] Cardiology clinic /CHF clinic need to establish care with family physician will need follow up with Coagulation clinic Total time spent on discharge = 40 mins This includes examination of the patient, discharge planning, medication reconciliation, and communication with other providers. Discharge Instructions Patient Name: Irving Callaway Unit Number: [id number] Date of : 1970 Patient Status: Admitted Inpatient Attending Doctor: Deepika Costa M.D. DI: CHF v4 Discharge Instructions Admission Reason for Admission: Respiratory Failure, Acute Discharge Discharge Diagnosis / Problem: AFIB /RVR /SEVERE NON ISCHEMIC CARDIOMYOPATHY Discharge Goals Goal(s): Increase independence, Improve disease control, Diagnostic testing, Therapeutic intervention Activity Recommendations Activity Limitations: as noted below ( TOLERATED ) . Instructions / Follow-Up Instructions / Follow-Up CARDIOLOGY FOLLOW UP WITH DR LLAMAS IN 4 WEEKS AT [facility] -OFFICE WILL CALL WITH APPOINTMENT IT IS VERY IMPORTANT TO ESTABLISH CARE WITH FAMILY PHYSICIAN -NEEDS CLOSE MONITORING OF HYPERTENSION /NEED BLOOD WORK MONITORING FOR COUMADIN PLEASE FOLLOW UP WITH COAGULATION CLINIC [facility] PHONE # [phone] TO SET UP AN APPOINTMENT SOON POSSIBLE YOU WILL NEED PERIODIC BLOOD WORK TEST ( PT/INR ) MONITORING AND COUMADIN DOSE ADJUSTMENT Call your Primary Care doctor if any of the following symptoms or problems start or get worse: * Shortness of breath or difficulty breathing * Wake up at night short of breath * Chest pain * Cough * Swelling of your hands, feet, or legs * More fatigued or tired with your normal activity * Palpitations - sudden fast heart beats WEIGHT * Weigh yourself every morning after using the bathroom. * Use the same scale. * Wear the same amount of clothing. * Write your weight down on a chart. * Call your Primary Care doctor if you gain more than 2-3 pounds in 1-2 days. MEDICATIONS * Use this discharge instruction sheet for medication instructions. * Take your medications at the time your doctor ordered. * Do not skip a dose of your medicines. * If you miss a dose of medicine, take it as soon as possible, but DO NOT DOUBLE A DOSE. * Read your medicine information when you get home. * Know all of the side effects of your medicine. If in doubt, ask your pharmacist * Call your Primary Care doctor's office if you have any side effects. * Be sure all of your doctors know what medicine and herbs you take (including cold, flu, and herbal medicine). Take the following with you to your follow-up doctor appointments: * Weight Chart * Medication List * List of questions Do not drink excessive alcohol, beer or wine. Current Hospital Diet Patient's current hospital diet: AHA Diet (Heart Healthy) Discharge Diet Recommended Diet: AHA Diet (Heart Healthy) Procedures Procedures Performed: LUDWIG/CV Pending Studies Studies pending at discharge: yes List of pending studies: LAB WORK : BASIC METABOLIC PANEL PT/INR IN A WEEK Work Instructions Additional Instructions: DO NOT DRIVE FOR NEXT 1 DAY SHOULD NOT OPERATE COMMERTICAL HEAVY VEHICLES WITHOUT EVALUATED BY CARDIOLOGY Medical Emergencies . Who to Call and When: Call 911 or go to the Emergency Room if: * If at any time you feel your situation is an emergency * You have tightness or pain in your chest that does not go away with rest or Nitroglycerin * You are very short of breath even with rest . Non-Emergent Contact Non-Emergency issues call your: Primary Care Provider, It Program Auditor . . "Provider Documentation" section prepared by Deepika Costa. VTE Core Measure Inpt VTE Proph given/why not?: Warfarin (Coumadin) [place] Drug Monitoring Program Search Results: no issues identified Additional Copies To Giovanni Llamas D.O.
[2016-07-06] MEDS ORDERED: LISINOPRIL 2.5 MG TAB PO SCH (09:00)
[2016-07-06 16:30] LABS: ALBUMIN 3.6 G/DL (3.8-4.8); TOTAL PROTEIN 6.4 G/DL (6.2-8.3)
--- NOTE | 2016-07-09 15:26 | TEE ---
*NOTICE TO RECEIVING [employer] This information is strictly Confidential and protected under [place] law. [place] law prohibits you from making any further disclosure of this information unless further disclosure is expressly permitted by the written consent of the person to whom it pertains or is authorized by law. A general authorization for the release of medical or other information is not sufficient for this purpose. Hospital accepts no responsibility if the information is made available to any other person, INCLUDING THE PATIENT. Interpretation Summary * Name: AJ MENCHACA Study Date: 07/05/2016 10:31 AM BP: 124/75 mmHg * Patient Location: .2E\S\E209\S\1 HR: 112 * : 1970 (M/d/yyyy) Gender: Male Height: 66 in * Age: 45 yrs Ethnicity: CA Weight: 246 lb * Ordering Physician: Giovanni Llamas DO * Performed By: Bernice Goff * * Reason For Study: AIB * BSA: 2.2 m2 * -- Conclusions -- * No left atrial thrombus present. * Mild mitral regurgitation. Procedure Details * The transesophageal portion of this study was personally supervised by the undersigned interpreting physician. * LUDWIG Probe #2 utilized for procedure. * The study was performed in Cardiopulmonary Department. * Time out was conducted by the physician, nurse, and photographic laboratory technician with positive identification of patient and procedure. * Informed consent for Transesophageal Echocardiogram was obtained prior to the procedure. * An intravenous line was placed. A topical anesthetic agent was used for oropharangeal anesthesia. A bite block was inserted. * The patient's vital signs, including blood pressure, heart rate, pulse oximetry and cardiac rhythm were monitored throughout the procedure . * Midazolam 6 mg administered for sedation. * Fentanyl 150 mcg was administered for procedural sedation. * The posterior oropharynx was anesthetized using a topical anesthetic spray. A bite guard was inserted. * A multifrequency, multiplane transesopheageal echocardiographic endoscope was inserted and manipulated in the standard fashion to achieve multiplane views. * The patient tolerated the procedure well without evidence of orophangeal or esophageal trauma. * A 2D transesophageal echocardiogram with spectral and color flow Doppler was performed. * Compared to prior echo report on 07/01, changes are noted. * Limited views were obtained. * A 2D transesophageal echocardiogram was performed. * A 2D transesophageal echocardiogram with color flow Doppler was performed. * A 2D transesophageal echocardiogram with Doppler and color flow Doppler was performed. Atria * The left atrial size is normal. * No left atrial mass or thrombus visualized. * Right atrial size is normal. * The interatrial septum is intact with no evidence for an atrial septal defect. Mitral Valve * The mitral valve anatomy is normal. * There is no mitral valve stenosis. * There is mild mitral regurgitation. Tricuspid Valve * The tricuspid valve is normal in structure and function. Aortic Valve * The aortic valve is normal in structure and function. Pulmonic Valve * The pulmonary valve is not well seen, but the Doppler examination is normal without significant regurgitation or stenosis. Great Vessels * The aortic root and proximal ascending aorta are normal sized. Pericardium * There is no pericardial effusion.
== END 2016-07-05 15:30 | disposition home or self-care (01) | DRG 286 ==
LOC: ENRESERVDT → ENRESERVTM → C.EDB 22:21 → C.2T 07-01 01:49 → C.2E 07-01 13:20 → C.MSICU 07-02 18:58 → EDBEDREQSVC 07-02 20:19 → C.2E 07-02 21:46
PROVIDERS: ADMIT Hospitalist; ATTEND Hospitalist
PROC: 5A09357 Assistance with Respiratory Ventilation, Less than 24 Consecutive Hours, Continuous Positive Airway Pressure (ICD-10-PCS; principal; 2016-07-01)
PROC: 4A023N8 Measurement of Cardiac Sampling and Pressure, Bilateral, Percutaneous Approach (ICD-10-PCS; 2016-07-02)
PROC: B2111ZZ Fluoroscopy of Multiple Coronary Arteries using Low Osmolar Contrast (ICD-10-PCS; 2016-07-02)
PROC: 5A2204Z Restoration of Cardiac Rhythm, Single (ICD-10-PCS; 2016-07-05)
DX: I50.23 Acute on chronic systolic (congestive) heart failure (principal); J96.01 Acute respiratory failure with hypoxia; I42.0 Dilated cardiomyopathy; I48.91 Unspecified atrial fibrillation; I27.2 Other secondary pulmonary hypertension; Z91.14 Patient's other noncompliance with medication regimen; I10 Essential (primary) hypertension; J81.0 Acute pulmonary edema; I16.0 Hypertensive urgency; G47.30 Sleep apnea, unspecified

== ENCOUNTER 2019-02-04 06:11 | Inpatient (IN) ==
[2019-02-04] MEDS ORDERED: ASPIRIN CHEW 324 MG PO STA (06:41)
[2019-02-04 06:51] LABS: Basophils # (auto) 0.04 K/uL (0-0.2); Basophils % (auto) 0.6 %; Eosinophils # (auto) 0.22 K/uL (0-0.5); Eosinophils % (auto) 3.6 %; Hematocrit (blood only) 44.8 % (42-52); Hemoglobin 16.1 g/dL (14.0-18.0); Immature Granulocytes # (auto) 0.03 K/uL (0.00-0.02); Immature Granulocytes % (auto) 0.5 %; Lymphocytes # (auto) 2.04 K/uL (1.2-3.4); Lymphocytes % (auto) 33.1 %; Mean Corpuscular Hgb Conc 35.9 g/dL (32-36); Mean Corpuscular Volume 90.9 fL (80-100); Mean Platelet Volume 10.7 fL (7.4-10.4); Monocytes % (auto) 11.3 %; Neutrophils # (auto) 3.14 K/uL (1.4-6.5); Neutrophils % (auto) 50.9 %; Platelet Count 165 K/uL (130-400); RDW Coefficient of Variation 12.1 % (11.5-14.5); RDW Standard Deviation 40.3 fL (36.4-46.3); Red Blood Count 4.93 M/uL (4.7-6.1); White Blood Count 6.17 K/uL (4.8-10.8)
[2019-02-04 07:04] LABS: Partial Thromboplastin Time 25.9 Seconds (21.0-31.0); Prothrombin Time 10.3 Seconds (9.0-12.0)
--- NOTE | 2019-02-04 07:21 | XRay Report ---
XR chest 1V portable HISTORY: 48 years-old Male Chest Pain acute atypical chest pain with high blood pressure COMPARISON: Chest radiograph 07/02/2016 TECHNIQUE: Portable AP view of the chest FINDINGS: Cardiac silhouette is enlarged. Pulmonary vascular congestion with interstitial coarsening. No pneumo thorax, large pleural effusion or lobar airspace consolidation. Mild degenerative changes of the shou lders and spine. IMPRESSION: Cardiomegaly with pulmonary vascular congestion and interstitial coarsening suggestive of pulmonary edema. The above report was generated using voice recognition software. It may contain grammatical, syntax o r spelling errors. Electronically signed by: Shamir George M.D. 02/04/2019 7:20 AM
[2019-02-04 07:24] LABS: Alanine Aminotransferase 38 U/L (12-78); Albumin Level 3.8 gm/dl (3.4-5.0); Aspartate Aminotransferase 30 U/L (15-37); BUN Creatinine Ratio 17.7 (10-20); Blood Urea Nitrogen 20 mg/dl (7-18); Calcium 8.6 mg/dl (8.5-10.1); Carbon Dioxide 23 mmol/L (21-32); Chloride 112 mmol/L (98-107); Creatinine Clr Calc Pharmacy 93.4 ml/min; Est GFR (African American) 87.4; Est GFR (Non-African American) 75.4; Glucose 104 mg/dl (70-99); Potassium 4.1 mmol/L (3.5-5.1); Sodium 142 mmol/L (136-145)
[2019-02-04 07:29] LABS: Alkaline Phosphatase 60 U/L (45-117); Bilirubin,Total 0.4 mg/dl (0.2-1); Globulin 3.7 gm/dl (2.5-4.0); NT Pro B Type Natriuretic Pept 1077 pg/ml (0-900); Total Protein 7.5 gm/dl (6.4-8.2); Troponin I < 0.015 ng/ml (0-0.045)
[2019-02-04] MEDS ORDERED: FUROSEMIDE 20 MG in SYRINGE 0 ML IV ONE (07:34)
[2019-02-04] MEDS ORDERED: FUROSEMIDE 40 MG/4 ML VIAL IV ONE (07:37)
--- NOTE | 2019-02-04 07:45 | History & Physical Report ---
Date of Service February 04, 2019 Assessment & Plan (1) CHF (congestive heart failure): Acute on chronic systolic and Diastolic CHF exacerbation CXR showed: Cardiomegaly with pulmonary vascular congestion and interstitial coarsening suggestive of pulmonary edema. Last ECHO in Jul 2017: EF: 20-24%, grade 2 diastolic dysfunction Currently not taking any cardiac medications since 2 months Refused ICD placement in the past Start IV Lasix 40mg BID Update ECHO Daily weight, I/Os, fluid restriction Low sodium diet Oxygen support PRN Monitor renal function/electrolytes Cardiology consulted Resume lisinopril 2.5mg daily Consider to restart metoprolol 25 mg twice daily as able Chest Pain: R/O ACS Initial troponin:Negative EKG shows:No signs of ST elevation Check echo for changes in wall motion abnormality Trend serial cardiac enzymes, repeat EKG, fasting lipid panel in AM Restart Aspirin Cardiology consulted Paroxysmal atrial fibrillation Currently in sinus rhythm Rate controlled Patient currently not taking metoprolol as advised Plan to restart metoprolol 25 mg twice daily as able Previously on Coumadin for anticoagulation--admits to being noncompliant with monitoring INR Prefers to be started on aspirin only Obesity: BMI:41 DVT Px: Heparin SQ Code Status Full Code Disposition: Expected discharge home when stable History of Present Illness Chief Complaint: Chest Pain Primary Care Provider: Kp Rubio MD Patient is a 48-year-old male with history of nonischemic cardiomyopathy, paroxysmal atrial fibrillation, obesity and other problems presents with history of chest pain which started at around 4 AM this morning. Patient describes the chest pain as chest heaviness which is retrosternal in location, nonradiating, 5 / 10 intensity, worsens with lying down, improves being upright. Reports associated shortness of breath, diaphoresis. States being short of breath with minimal exertion since yesterday. He received Lasix in ED which completely resolved his symptoms currently. He admits to not taking his cardiac medications since last 2 months as he was trying natural remedies. Denies any history of Dizziness, pedal edema, cough, wheezing, hemoptysis, fever, chills, fall, chest trauma, LOC, headache, weakness, numbness, change in vision, nausea, vomiting, abdominal pain, diarrhea, change in appetite, weight loss/gain, dysuria. His last cardiac catheterization is in 2015 which showed no coronary artery disease or obstruction. His last echo is in July 2017 which showed the left ventricle cavity is moderately enlarged, ejection fraction 20 to 24%, severe diffuse left ventricular hypokinesis, right ventricular systolic function is used, left ventricular diastolic function is moderately abnormal grade 2, mild MR. Allergies Allergy/AdvReac Type Severity Reaction Status Date / Time No Known Allergies Allergy Unverified 02/04/19 06:46 Home Medications Home Medications Medication Instructions Recorded Confirmed Type No Known Home Medications 02/04/19 02/04/19 History Past Med/Surg History Medical History CHF (congestive heart failure) (Chronic) Hypertension (Chronic) Surgical History History of appendectomy (Resolved) Family History Brother Congestive heart failure (CHF) Sister Congestive heart failure (CHF) Social History Preferred Language: French Communication Ability: Effective Marketing Automation Manager Required: No Beliefs That Will Affect Care: None Current Living Situation: Spouse Other Information That Helps Us Care for You: No Feels Safe at Home: Yes Safety Concerns: Feels Safe At This Time Smoking Status: Never smoker Do You Dip or Chew Tobacco: No ; Second Hand Exposure: No ; Tobacco Cessation Education Requested by Patient: No Hx Alcohol Use: No Hx Substance Use: No Review of Systems Review of Systems: All systems reviewed & are unremarkable except as noted in HPI & below Physical Exam Physical Exam: Physical Exam: Vitals signs as noted above General Appearance:Obese, no apparent distress Head: normocephalic, Atraumatic Eyes: normal inspection, EOMI Neck: supple, Trachea midline Respiratory/Chest: Normal breath sounds, Basal Crackles Cardiovascular: S1, S2, No murmur Abdomen/GI:Soft, Non tender, Bowel sounds present Extremities/Musculoskelatal:normal inspection, Trace pedal edema Neurologic/Psych:AAOX3, grossly no focal neurological deficits Skin: normal color, warm Results & Data Vital Signs (Past 12 Hours) Vital Signs Temp Pulse Pulse Resp BP BP Pulse Ox 02/04/19 07:39 89 16 130/97 93 02/04/19 06:54 90 18 121/92 93 02/04/19 06:46 96 02/04/19 06:16 36.6 C 94 H 18 133/89 94 Laboratory Results Short CBC 02/04/19 Range/Units 06:31 WBC 6.17 (4.8-10.8) K/uL Hgb 16.1 (14.0-18.0) g/dL Hct 44.8 (42-52) % Plt Count 165 (130-400) K/uL BMP 02/04/19 06:31 Sodium 142 Potassium 4.1 Chloride 112 H Carbon Dioxide 23 BUN 20 H Creatinine 1.13 Glucose 104 H Calcium 8.6 Cardiac Enzymes 02/04/19 Range/Units 06:31 Troponin I < 0.015 (0-0.045) ng/ml Liver Function 02/04/19 Range/Units 06:31 Total Bilirubin 0.4 (0.2-1) mg/dl AST 30 (15-37) U/L ALT 38 (12-78) U/L Alkaline Phosphatase 60 (45-117) U/L Albumin 3.8 (3.4-5.0) gm/dl Diagnostic Findings CXR: Cardiomegaly with pulmonary vascular congestion and interstitial coarsening suggestive of pulmonary edema. ECG Additional Comments: EKG: Normal sinus rhythm, left axis deviation, QTC 467, nonspecific T wave changes in anterolateral leads (1) CHF (congestive heart failure) Heart failure chronicity: acute on chronic Heart failure type: unspecified Qualified Code(s): I50.9 - Heart failure, unspecified
--- NOTE | 2019-02-04 07:46 | Emergency Department Note ---
Entered by Kitty Kruse acting as a scribe for Tej Navarro MD History of Present Illness General Chief complaint: Cardiac Assessment Stated complaint: FEELING OFF/HIGH BP, FEELS HEAVY Time Seen by Provider: 02/04/19 06:38 Source: patient History of Present Illness Onset (ago): hour(s) (2.5) Location: chest Radiation: non-radiation Pain Consistency: + now resolved and + other (episode) Quality: + other (heaviness) Relieved By: + medication (Nitro) Associated symptoms: + diaphoresis, + shortness of breath and + other (negative abdominal pain; negative pain or swelling in legs; negative heart racing; negative palpitations; ); no fever/chills and no nausea/vomiting Treatments prior to arrival: other (Nitro) The patient is a 48 year old male who presents to the Emergency Room with complaints of a now resolved episode of chest pain that began at about 0400, about 2.5 hours prior to arrival. The patient describes this pain as a heaviness. He reports feeling somewhat short of breath and sweaty at this time. The patient denies radiation to his arm, neck, and back. He denies nausea, vomiting, abdominal pain, pain or swelling in his legs, fever, heart racing, and palpitations. The patient states that he took a Nitro about one hour after his symptoms began, and states that this relieved his symptoms. The patient denies any recent trauma or injury. He states that he has a history of CHF, and has not been taking his Lasix for about 2 months. The patient denies any recent weight gain. The patient reports that he had a catheterization about 2.5 years ago, but states that he had no stent placement. He denies a history of bypass. The patient states that he has not taken his cardiac medications in about 2 months, including aspirin. The patient states that he was previously on Coumadin for Afib, but states that he is no longer in Afib and is no longer on this. 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 and A total of 10 systems reviewed and were otherwise negative Physical Exam Vital Signs Vital Signs - 24 hr 02/04/19 06:16 02/04/19 06:46 02/04/19 06:54 Temperature 36.6 C Temperature Source Oral Sepsis Recent Fever Within 48 Hours No Sepsis New/Unexplained Change in Mental Status No Sepsis Action Taken by Nursing No Action Required Pulse Rate 94 H Pulse Rate [Apical] 90 Respiratory Rate 18 18 Respiratory Effort / Characteristics Non-Labored Respiratory Depth Normal Normal Respiratory Pattern Blood Pressure 133/89 Blood Pressure [Right Arm] 121/92 Blood Pressure Mean 103 Blood Pressure Mean [Right Arm] 101 Pulse Oximetry 94 96 93 Oxygen Delivery Method Room Air Room Air Room Air 02/04/19 07:39 Temperature Temperature Source Sepsis Recent Fever Within 48 Hours Sepsis New/Unexplained Change in Mental Status Sepsis Action Taken by Nursing Pulse Rate Pulse Rate [Apical] 89 Respiratory Rate 16 Respiratory Effort / Characteristics Non-Labored Spontaneous Respiratory Depth Normal Respiratory Pattern Regular Blood Pressure Blood Pressure [Right Arm] 130/97 Blood Pressure Mean Blood Pressure Mean [Right Arm] 108 Pulse Oximetry 93 Oxygen Delivery Method Room Air General: Non-ill appearing middle aged male in no acute distress. HEENT: Normal cephalic atraumatic. Pupils are equal round and reactive to light. Extraocular movements are intact. Oropharynx is pink with moist mucous membranes. No swelling of the mouth lips or tongue. Neck: Supple with a midline trachea. No meningeal signs or stiffness, no JVD or bruits. No Stridor. Chest: Clear to auscultation bilaterally. No wheezes or rhonchi. No increased work of breathing. Heart: regular rate and rhythm. Abdomen: Soft nontender, nondistended without rebound guarding or rigidity. Extremities: No cyanosis clubbing or edema. No calf tenderness or asymmetry Spine/Back. Non tender to palpation. No CVA tenderness Skin: Good turgor without rashes. Neurologic exam: Cranial nerves two through 12 are intact. Motor and sensation are intact and symmetrical throughout. Course 0637: Past medical records reviewed. The patient was evaluated in room B8. A complete history and physical exam was performed. 0733: Upon reevaluation, the patient appears stable. He will need to be further evaluated in the hospital. The patient is in agreement with the treatment plan. 0739: I discussed the case with Dr. Jennings Hospitalist who accepts the patient for further evaluation. Consultations Consultation #1: I discussed the case with Dr. Jennings [facility] who accepts the patient for further evaluation. Time: 07:39 Administered Medications Discontinued Medications Aspirin (Aspirin) 324 mg PO NOW STA Stop: 02/04/19 06:42 Last Admin: 02/04/19 06:53 Dose: 324 mg Documented by: [id number] Furosemide (Lasix) Confirm Administered Dose 40 mg IV .STK-MED ONE Stop: 02/04/19 07:38 Last Admin: 02/04/19 07:38 Dose: 20 mg Documented by: [id number] Furosemide 20 mg/ Syringe 2 mls @ 4 mls/min IV ONE ONE Stop: 02/04/19 07:35 Last Admin: 02/04/19 07:39 Dose: Not Given Documented by: [id number] Medical Decision Making Differential Diagnosis Differential diagnoses include acute coronary syndrome, CHF, arrhythmia, GERD, electrolyte or metabolic abnormality, and others were considered. Medical Records Attestation: I reviewed the patient's medical records. Home Medications Current Medication List: was personally reviewed by me Laboratory Data Attestation: I reviewed the patient's lab results. Result diagrams: 02/04/19 06:31 02/04/19 06:31 Lab Results 08/04/19 08/04/19 08/04/19 Range/Units 06:31 06:31 06:31 WBC 6.17 (4.8-10.8) K/uL RBC 4.93 (4.7-6.1) M/uL Hgb 16.1 (14.0-18.0) g/dL Hct 44.8 (42-52) % MCV 90.9 (80-100) fL MCH 32.7 (25-34) pg MCHC 35.9 (32-36) g/dL RDW Std Deviation 40.3 (36.4-46.3) fL RDW Coeff of Shelby 12.1 (11.5-14.5) % Plt Count 165 (130-400) K/uL MPV 10.7 H (7.4-10.4) fL Immature Gran % (Auto) 0.5 % Neut % (Auto) 50.9 % Lymph % (Auto) 33.1 % Darke % (Auto) 11.3 % Eos % (Auto) 3.6 % Baso % (Auto) 0.6 % Immature Gran # (Auto) 0.03 H (0.00-0.02) K/uL Neut # (Auto) 3.14 (1.4-6.5) K/uL Lymph # (Auto) 2.04 (1.2-3.4) K/uL Darke # (Auto) 0.70 H (0.11-0.59) K/uL Eos # (Auto) 0.22 (0-0.5) K/uL Baso # (Auto) 0.04 (0-0.2) K/uL PT 10.3 (9.0-12.0) Seconds INR 1.0 (0.9-1.1) APTT 25.9 (21.0-31.0) Seconds PTT Ratio 1.0 Sodium 142 (136-145) mmol/L Potassium 4.1 (3.5-5.1) mmol/L Chloride 112 H (98-107) mmol/L Carbon Dioxide 23 (21-32) mmol/L Anion Gap 7.0 (3-11) BUN 20 H (7-18) mg/dl Creatinine 1.13 (0.6-1.4) mg/dl Est Cr Clr Drug Dosing 93.4 ml/min Est GFR ( Amer) 87.4 Est GFR (Non-Af Amer) 75.4 BUN/Creatinine Ratio 17.7 (10-20) Glucose 104 H (70-99) mg/dl Calcium 8.6 (8.5-10.1) mg/dl Total Bilirubin 0.4 (0.2-1) mg/dl AST 30 (15-37) U/L ALT 38 (12-78) U/L Alkaline Phosphatase 60 (45-117) U/L Troponin I < 0.015 (0-0.045) ng/ml NT-Pro-B Natriuret Pep 1077 H (0-900) pg/ml Total Protein 7.5 (6.4-8.2) gm/dl Albumin 3.8 (3.4-5.0) gm/dl Globulin 3.7 (2.5-4.0) gm/dl Albumin/Globulin Ratio 1.0 (0.9-2) Lipase 197 (73-393) U/L 02/04/19 Range/Units 06:31 WBC (4.8-10.8) K/uL RBC (4.7-6.1) M/uL Hgb (14.0-18.0) g/dL Hct (42-52) % MCV (80-100) fL MCH (25-34) pg MCHC (32-36) g/dL RDW Std Deviation (36.4-46.3) fL RDW Coeff of Shelby (11.5-14.5) % Plt Count (130-400) K/uL MPV (7.4-10.4) fL Immature Gran % (Auto) % Neut % (Auto) % Lymph % (Auto) % Darke % (Auto) % Eos % (Auto) % Baso % (Auto) % Immature Gran # (Auto) (0.00-0.02) K/uL Neut # (Auto) (1.4-6.5) K/uL Lymph # (Auto) (1.2-3.4) K/uL Darke # (Auto) (0.11-0.59) K/uL Eos # (Auto) (0-0.5) K/uL Baso # (Auto) (0-0.2) K/uL PT (9.0-12.0) Seconds INR (0.9-1.1) APTT (21.0-31.0) Seconds PTT Ratio Sodium (136-145) mmol/L Potassium (3.5-5.1) mmol/L Chloride (98-107) mmol/L Carbon Dioxide (21-32) mmol/L Anion Gap (3-11) BUN (7-18) mg/dl Creatinine (0.6-1.4) mg/dl Est Cr Clr Drug Dosing ml/min Est GFR ( Amer) Est GFR (Non-Af Amer) BUN/Creatinine Ratio (10-20) Glucose (70-99) mg/dl Calcium (8.5-10.1) mg/dl Total Bilirubin (0.2-1) mg/dl AST (15-37) U/L ALT (12-78) U/L Alkaline Phosphatase (45-117) U/L Troponin I (0-0.045) ng/ml NT-Pro-B Natriuret Pep Cancelled (0-900) pg/ml Total Protein (6.4-8.2) gm/dl Albumin (3.4-5.0) gm/dl Globulin (2.5-4.0) gm/dl Albumin/Globulin Ratio (0.9-2) Lipase (73-393) U/L Imaging Data Radiologist's Impression: Radiology results as stated below per my review and the radiologist's interpretation: XR chest 1V portable HISTORY: 48 years-old Male Chest Pain acute atypical chest pain with high blood pressure COMPARISON: Chest radiograph 07/02/2016 TECHNIQUE: Portable AP view of the chest FINDINGS: Cardiac silhouette is enlarged. Pulmonary vascular congestion with interstitial coarsening. No pneumothorax, large pleural effusion or lobar airspace co nsolidation. Mild degenerative changes of the shoulders and spine. IMPRESSION: Cardiomegaly with pulmonary vascular congestion and interstitial coarsening suggestive of pulmonary edema. The above report was generated using voice recognition software. It may contain grammatical, syntax or spelling errors. Electronically signed by: Shamir George M.D. 02/04/2019 7:20 AM ECG Data Attestation: I personally reviewed and interpreted this ECG as follows: Indication: chest pain Rate (beats per minute): 94 Rhythm: normal sinus Findings: + T-wave inversion (laterally ) and + left axis deviation; no acute ischemic change Comparison ECG Date: from (07/05/16) Change: the following changes noted (TWI more pronounced currently than previous) Blood Pressure Blood Pressure Findings: Normal blood pressure MDM Narrative This patient comes in as described above. He was placed in room B8. He had episode of chest pain last evening around 4:00 in the morning. He did take a nitroglycerin and felt better. At present he is on no medications. He stopped taking his cardiac medicines about 2 months ago he tells me. He has had no pain or swelling in his legs. I did give him aspirin 324 mg chewable. EKG shows some T wave inversions in aVL which may be new, there are no other acute changes. There is no acute electrolyte or metabolic abnormalities. BNP is mildly elevated at just over thousand. His chest x-ray does suggest congestive heart failure. He was given Lasix 20 mg IV. I think that he is in congestive heart failure and will need to be admitted/observe for further cardiac evaluation and treatment and work-up. He will likely need to be started back on his meds. I have consulted Dr. France from [facility] and he will see him in the ER for these measures. Impression & Plan CHF (congestive heart failure), Chest pain Discharge Plan Visit Data *Final* Discharge Date/Time: 02/04/19 08:48 Chief Complaint: Cardiac Assessment Stated Complaint: FEELING OFF/HIGH BP, FEELS HEAVY ED Provider: Tej Navarro Discharge Problem: CHF (congestive heart failure), Chest pain Patient Disposition: Admitted As Inpatient Discharge Instructions Interventions: ED Discharge Assessment Last Done: 02/04/19 08:48 Discharge Problem: CHF (congestive heart failure) Qualifiers: Heart failure type: unspecified Heart failure chronicity: acute on chronic Qualified Code(s): I50.9 - Heart failure, unspecified Chest pain Qualifiers: Chest pain type: precordial pain Qualified Code(s): R07.2 - Precordial pain The scribe's documentation has been prepared under my direction and personally reviewed by me in its entirety. I confirm that the note above accurately reflects all work, treatment, procedures, and medical decision making performed by me.
[2019-02-04] MEDS ORDERED: ACETAMINOPHEN 325 MG TAB PO PRN (09:16)
[2019-02-04] MEDS ORDERED: NITROGLYCERIN SL 0.4 MG/TAB TAB SL PRN (09:16)
[2019-02-04] MEDS: FUROSEMIDE 40 MG in SYRINGE 0 ML IV SCH ×2 (10:40→15:43)
[2019-02-04] MEDS ORDERED: PERFLUTREN LIPID MICROSPHERE (DEFINITY) IV ONE (11:23)
[2019-02-04] MEDS: LISINOPRIL 2.5 MG TAB PO SCH (11:24)
[2019-02-04] MEDS: HEPARIN SOD 5,000 UNIT/0.5 ML VIAL SQ SCH ×2 (13:08→22:58)
[2019-02-04] MEDS ORDERED: METOPROLOL TARTRATE 25 MG TAB PO ONE (18:15)
[2019-02-04] MEDS ORDERED: METOPROLOL SUCC 25MG EXT REL TAB PO SCH (21:00)
[2019-02-04] MEDS: METOPROLOL TARTRATE 25 MG TAB PO SCH (22:58)
[2019-02-05] MEDS: HEPARIN SOD 5,000 UNIT/0.5 ML VIAL SQ SCH ×3 (06:01→20:18)
[2019-02-05 06:29] LABS: Hemoglobin 17.4 g/dL (14.0-18.0); Mean Corpuscular Hgb Conc 36.3 g/dL (32-36); Mean Corpuscular Volume 91.1 fL (80-100); Mean Platelet Volume 10.8 fL (7.4-10.4); Platelet Count 182 K/uL (130-400); RDW Coefficient of Variation 12.2 % (11.5-14.5); RDW Standard Deviation 40.8 fL (36.4-46.3); Red Blood Count 5.27 M/uL (4.7-6.1); White Blood Count 9.61 K/uL (4.8-10.8)
[2019-02-05 07:05] LABS: BUN Creatinine Ratio 19.2 (10-20); Calcium 9.1 mg/dl (8.5-10.1); Creatinine Clr Calc Pharmacy 85.8 ml/min; Est GFR (African American) 78.8; Magnesium 2.1 mg/dl (1.8-2.4); Potassium 3.9 mmol/L (3.5-5.1)
--- NOTE | 2019-02-05 07:21 | XRay Report ---
XR chest 1V portable CLINICAL HISTORY: CHF COMPARISON STUDY: Chest radiograph February 04, 2019. FINDINGS: Moderate cardiomegaly is noted. No pneumothorax or pleural effusion is identified. There is no consolidation to suggest pneumonia. Pulmonary edema has improved. IMPRESSION: Interval improvement in pulmonary edema. Electronically signed by: Amadeo Townsend M.D. 02/05/2019 7:20 AM
[2019-02-05 08:42] LABS: Estimated Average Glucose 117 mg/dl; Hemoglobin A1C 5.7 % (4.5-5.6)
[2019-02-05] MEDS: LISINOPRIL 2.5 MG TAB PO SCH (08:51)
[2019-02-05] MEDS: METOPROLOL TARTRATE 25 MG TAB PO SCH (08:51)
[2019-02-05] MEDS: ASPIRIN 81 MG ECTAB PO SCH (08:51)
[2019-02-05] MEDS: FUROSEMIDE 40 MG in SYRINGE 0 ML IV SCH (09:37)
[2019-02-05] MEDS: SPIRONOLACTONE 25 MG TAB PO SCH (12:01)
--- NOTE | 2019-02-05 14:31 | Hospitalist Progress Note ---
Date of Service February 05, 2019 Assessment & Plan (1) Acute systolic heart failure: Appears compensated from heart failure standpoint after IV diuresis overnight. Cardiology was consulted and added metoprolol succinate 25 mg p.o. twice daily, spironolactone 12.5 mg p.o. daily. Continue baby aspirin and lisinopril 2.5 mg p.o. every morning. Lasix IV was held. The patient was not taking any medication at home and has a history of noncompliance, preferring homeopathic medications. He is agreeable to current regimen. Of note EF is 15 to 20% and he has declined ICD in the past. Continue to monitor on telemetry. Review overnight revealed no evidence of arrhythmia and he remained in sinus rhythm. (2) Chest pain: Denies chest pain and serial troponin enzymes ruled out ACS overnight. In addition incomplete left bundle branch block is present on EKG which is unchanged today. Echocardiogram reveals chronic depressed ejection fraction with no significant change from prior. (3) PAF (paroxysmal atrial fibrillation): Noncompliant with Coumadin in the past, previously recommended. Continues with aspirin for stroke prophylaxis. Currently in sinus rhythm. Continue with rate control with Toprol twice daily. (4) Obesity: (5) DVT prophylaxis: Heparin every 8-we will switch to Lovenox for once daily injection Full code Dispo-continue telemetry monitoring, expect home in 1 to 2 days when compensated and tolerating new medications. Rosemary Rashid DO [facility] Hospitalist Subjective 48-year-old man presented overnight with acute shortness of breath that is improved today after diuretics were administered. He denies any chest pain or other issues at this time. He is tolerating p.o. He is amenable to current medications and level of naturopathic medications. We discussed diet briefly and the importance of a low-sodium diet. He reports not watching his diet at all. He verbalized understanding of the low-sodium diet recommendations and intent to comply. Review of Systems Review of Systems: All systems reviewed & are unremarkable except as noted in HPI & below Physical Exam Physical Exam: CONSTITUTIONAL: obese, vitals as above, generally well- appearing EYES: normal conjunctivae, no scleral icterus ENT: MMM RESPIRATORY: clear to auscultation bilaterally, no crackles, rales or wheezes, normal respiratory effort CARDIOVASCULAR: regular rate and rhythm, S1 and 2 heard without murmurs, gallops or rubs, no JVD, no peripheral edema, no carotid bruits CHEST: inspection of chest was normal GASTROINTESTINAL: soft, nontender, nondistended, protuberant MUSCULOSKELETAL: strength 5/5 throughout, head is normocephalic and atraumatic, no gross focal deficits. SKIN: warm and dry NEUROLOGIC: CN 2-12 grossly intact, normal cognition, normal speech, no tremor. No gross focal deficits. PSYCHIATRIC: alert cooperative and oriented to person, place and time. Results & Data Vital Signs (Past 12 Hours) Vital Signs Temp Pulse Pulse Resp BP Pulse Ox 02/05/19 08:00 85 02/05/19 07:30 36.6 C 77 15 120/84 93 02/05/19 04:00 37.0 C 80 17 137/84 93 Laboratory Results Short CBC 02/05/19 Range/Units 06:09 WBC 9.61 (4.8-10.8) K/uL Hgb 17.4 (14.0-18.0) g/dL Hct 48.0 (42-52) % Plt Count 182 (130-400) K/uL BMP 02/05/19 06:09 Sodium 139 Potassium 3.9 Chloride 106 Carbon Dioxide 27 BUN 24 H Creatinine 1.23 Glucose 101 H Calcium 9.1 Cardiac Enzymes 02/04/19 02/04/19 Range/Units 14:10 20:17 Troponin I < 0.015 < 0.015 (0-0.045) ng/ml Medications Administered Current Inpatient Medications Acetaminophen (Tylenol) 650 mg PO Q4H PRN PRN Reason: Pain or Fever Stop: 03/06/19 09:15 Aspirin (Ecotrin Ectab) 81 mg PO QAM [facility] Stop: 03/07/19 08:59 Last Admin: 02/05/19 08:51 Dose: 81 mg Documented by: Heparin Sodium (Porcine) (Heparin Sodium (Porcine)) 5,000 units SQ Q8 [facility] Stop: 03/06/19 13:59 Last Admin: 02/05/19 06:01 Dose: Not Given Documented by: Furosemide 40 mg/ Syringe 4 mls @ 4 mls/min IV [id number] [facility] Stop: 03/06/19 09:15 Last Admin: 02/05/19 09:37 Dose: 4 mls/min Documented by: Lisinopril (Zestril) 2.5 mg PO QAM [facility] Stop: 03/06/19 09:15 Last Admin: 02/05/19 08:51 Dose: 2.5 mg Documented by: Metoprolol Succinate (Toprol Xl) 25 mg PO BID [facility] Stop: 03/07/19 20:59 Nitroglycerin (Nitrostat) 0.4 mg SL UD PRN PRN Reason: Chest Pain Stop: 03/06/19 09:15 Spironolactone (Aldactone) 12.5 mg PO DAILY [facility] Stop: 03/07/19 10:59 Last Admin: 02/05/19 12:01 Dose: 12.5 mg Documented by:
--- NOTE | 2019-02-05 16:30 | Consultation Report ---
DATE OF CONSULTATION: 02/05/2019 CONSULTATION REQUESTED BY: Dr. Lemos. REASON FOR CONSULTATION: Acute decompensated systolic heart failure. HISTORY OF PRESENT ILLNESS: The patient is a very pleasant 48-year-old gentleman who is a refugee from cardiac care for his history of nonischemic cardiomyopathy. He was previously followed in our office with myself and treated medically for nonischemic cardiomyopathy. He presented to [facility] on 02/04/2019 with complaints of chest discomfort. The patient states he woke up in the middle of the night around 4:00 a.m. feeling a heavy sensation in his chest. He denies any associated radiation with it, but he was short of breath and he notes that when he sat up, his discomfort resolved. He also notes that his breathing improved a little bit, but he was diaphoretic throughout this episode. At that time, he became concerned and came into the Emergency Department. Upon arrival, he was found to be significantly volume overloaded and started on IV Lasix. Upon further questioning, the patient admitted that he did not taken any of his medications in the last 2 months. He started taking [id number] herbal supplements, which he thought he could use to improve his heart function. Upon further questioning, he states he was taking plant enzymes with a goal of healing his heart. He was unable to provide any further information in regards to these supplements. Obviously, the patient did not inform our office of this and he canceled his last scheduled appointment. PAST SURGICAL HISTORY: 1. Cardiac catheterization in 2016 showed no significant obstructive disease. 2. Appendectomy. 3. Foot surgery. MEDICAL ILLNESSES: 1. Nonischemic cardiomyopathy, EF as low as 10%, most recently by echo in 2018 is 20%-24%. 2. Nonischemic cardiomyopathy, declining ICD placement. 3. Paroxysmal atrial fibrillation, status post DC cardioversion, previously on Coumadin therapy. 4. Pulmonary hypertension. 5. Obesity. FAMILY HISTORY: He has an extensive cardiac history including father developed coronary artery disease in his 40s, an older brother who developed coronary artery disease in his 50s and a second older brother that suffered a nonischemic cardiomyopathy with an EF as low as 5% after a virus reportedly. SOCIAL HISTORY: He denies any alcohol, tobacco or recreational drug use. He is and lives at home with his . He has 4 children. 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 He does not exercise. REVIEW OF SYSTEMS: As per HPI, all other review of systems reviewed and negative at this time. ALLERGIES: No known drug allergies. MEDICATIONS: Again the patient is not taking any medications currently. Previously, he was ordered to be on: 1. Lasix 40 mg daily. 2. Metoprolol succinate 100 mg daily. 3. Lisinopril 5 mg daily. 4. Warfarin 5 mg daily as directed by the [facility]. 5. Digoxin 125 mcg daily. 6. Spironolactone 12.5 mg daily. PHYSICAL EXAMINATION: VITAL SIGNS: Temperature 36.5, pulse 76, respiratory rate 12, blood pressure 100/71. GENERAL: Awake, alert, oriented x3, in no acute distress. HEENT: Normocephalic, atraumatic. Pupils equal, round, reactive to light and accommodation. Extraocular muscles intact. Anicteric sclerae. Moist mucous membranes. NECK: No JVD, no bruit. CARDIOVASCULAR: Regular. Positive S4. Normal S1 and S2. No S3. A III/ holosystolic ejection murmur greatest at the left sternal border, midclavicular line with radiation to the left axilla. No rubs. PULMONARY: Scant bibasilar crackles, otherwise clear. No rhonchi or wheezing. ABDOMEN: Bowel sounds x4, soft. No rebound, guarding, tenderness. No organomegaly. EXTREMITIES: No clubbing, cyanosis or edema. +2 pedal pulses bilaterally. SKIN: Warm and dry. TEST RESULTS: A 2D echocardiogram was read as left ventricle was moderately dilated, severely reduced LV systolic function, EF 15%-20% with severe global hypokinesis, mild to moderate mitral regurgitation, moderately reduced RV systolic function. A 12-lead EKG performed in the Emergency Department independently reviewed at this time shows normal sinus rhythm at 94 beats per minute, left anterior fascicular block and nonspecific T-wave flattening in the lateral leads, no significant change compared to previous study. Review of telemetry monitoring shows normal sinus rhythm with 2 salvos of nonsustained ventricular tachycardia lasting 4-8 beats. IMPRESSION: 1. Acute decompensated biventricular systolic heart failure. 2. Medication noncompliance. 3. Nonischemic cardiomyopathy, EF 15%-20%. 4. Mild to moderate mitral regurgitation. 5. History of atrial fibrillation, currently in normal sinus rhythm. RECOMMENDATIONS: It was my pleasure to see the patient in consultation today. Once again, the pathophysiology and treatment options for his nonischemic cardiomyopathy were reviewed with the patient and his at great length. He was counseled that I believe his chest pain was most likely secondary to chest congestion at this time given his significant volume overload and the fact that it resolved with sitting up and after receiving IV Lasix further supports this option. So at this point, I believe the most prudent course of action will be to restart his previous guideline based medical therapy including lisinopril 2.5 mg daily, metoprolol succinate 25 mg b.i.d., Lasix 40 mg daily starting tomorrow and spironolactone 12.5 mg daily. We discussed the stroke risk with paroxysmal atrial fibrillation and he preferred not to restart the warfarin and we will hold off digoxin at this time as well. He will most likely benefit from Entresto therapy; however, I prefer to see how he complies with medical therapy at this time. Consideration will be given to an outpatient Lexiscan nuclear stress test to complete an ischemic workup for his chest pain, but again at this point, I believe it is most likely due to chest congestion. I will give him an extra dose of IV Lasix this afternoon and then follow his volume status clinically from there.
[2019-02-05] MEDS: METOPROLOL SUCC 25MG EXT REL TAB PO SCH (20:18)
[2019-02-06] MEDS: HEPARIN SOD 5,000 UNIT/0.5 ML VIAL SQ SCH (04:22)
[2019-02-06] MEDS: ASPIRIN 81 MG ECTAB PO SCH (08:03)
[2019-02-06] MEDS: METOPROLOL SUCC 25MG EXT REL TAB PO SCH (08:03)
[2019-02-06] MEDS: SPIRONOLACTONE 25 MG TAB PO SCH (08:04)
[2019-02-06] MEDS: LISINOPRIL 2.5 MG TAB PO SCH (08:06)
[2019-02-06 08:16] LABS: BUN Creatinine Ratio 22.9 (10-20); Calcium 9.1 mg/dl (8.5-10.1); Creatinine Clr Calc Pharmacy 90.1 ml/min; Est GFR (African American) 85.5; Est GFR (Non-African American) 73.8; Potassium 3.9 mmol/L (3.5-5.1)
--- NOTE | 2019-02-06 09:31 | Cardiology Progress Note ---
Date of Service February 06, 2019 Assessment & Plan (1) Acute systolic heart failure: secondary to medication noncompliance diuresed well does not examine as volume overloaded today has tolerated restarting of previous GMT would d/c home on: metoprolol succinate 50mg daily (start this dose tomorrow) lisinopril 2.5mg daily spironolactone 12.5mg daily lasix 20mg daily, extra dose prn for sob aspirin 81mg daily my office will call to arrange f/u in next 1-2 weeks ok to d/c to home from cardiac standpoint. (2) Nonadherence to medication: counseled at great lengths as to the need for compliance pt states that he understands and will follow medical recommendation in terms of meds and follow up (3) PAF (paroxysmal atrial fibrillation): has remained in sinus pt declining anticoagulation therapy at this time Subjective Pt seen and examined, no complaints overnight. BP tolerated restarting meds well. Denies cp, sob, palpitations, lightheadedness or dizziness. tele reviewed: sinus rhythm with short burst of NSVT overnight, likely while sleeping Review of Systems Review of Systems: All systems reviewed & are unremarkable except as noted in HPI & below Physical Exam Physical Exam: General: Awake, alert and oriented x 3. No acute distress. HEENT: Normocephalic, atraumatic. Pupils equal, round and reactive to light and accommodation. Extraocular muscles are intact. Anicteric sclera. Moist mucous membranes. Neck: No JVD. No bruit. Cardiovascular: Regular. Positive S-4. Normal S-1 and S-2. No S-3. No murmurs or rubs. Pulmonary: Clear to auscultation B/L. No rales, rhonchi or wheezing Abdomen: Bowel sounds x 4, soft. No rebound, guarding or tenderness. No organomegaly. Extremities: No clubbing, cyanosis or edema. +2 pedal pulses bilaterally. Skin: Warm and dry. Results & Data Vital Signs (Past 12 Hours) Vital Signs Temp Pulse Resp BP Pulse Ox 02/06/19 07:39 37.1 C 80 22 125/88 92 02/06/19 04:00 36.6 C 67 18 102/64 91 02/05/19 23:10 36.7 C 76 18 101/65 93
--- NOTE | 2019-02-06 12:42 | Discharge Summary ---
Date of Service February 06, 2019 Admission HPI Per Admitting Provider Patient is a 48-year-old male with history of nonischemic cardiomyopathy, paroxysmal atrial fibrillation, obesity and other problems presents with history of chest pain which started at around 4 AM this morning. Patient describes the chest pain as chest heaviness which is retrosternal in location, nonradiating, 5 / 10 intensity, worsens with lying down, improves being upright. Reports associated shortness of breath, diaphoresis. States being short of breath with minimal exertion since yesterday. He received Lasix in ED which completely resolved his symptoms currently. He admits to not taking his cardiac me dications since last 2 months as he was trying natural remedies. Denies any history of Dizziness, pedal edema, cough, wheezing, hemoptysis, fever, chills, fall, chest trauma, LOC, headache, weakness, numbness, change in vision, nausea, vomiting, abdominal pain, diarrhea, change in appetite, weight loss/gain, dysuria. His last cardiac catheterization is in 2015 which showed no coronary artery dise ase or obstruction. His last echo is in July 2017 which showed the left ventricle cavity is moderately enlarged, ejection fraction 20 to 24%, severe diffuse left ventricular hypokinesis, right ventricular systolic function is used, left ventricular diastolic function is moderately abnormal grade 2, mild MR. Admission Exam Per Admitting Provider Physical Exam: Vitals signs as noted above General Appearance:Obese, no apparent distress Head: normocephalic, Atraumatic Eyes: normal inspection, EOMI Neck: supple, Trachea midline Respiratory/Chest: Normal breath sounds, Basal Crackles Cardiovascular: S1, S2, No murmur Abdomen/GI:Soft, Non tender, Bowel sounds present Extremities/Musculoskelatal:normal inspection, Trace pedal edema Neurologic/Psych:AAOX3, grossly no focal neurological deficits Skin: normal color, warm Principal Diagnosis Acute systolic heart failure Nonadherence to medication Paroxysmal atrial fibrillation Discharge Data Allergies Allergy/AdvReac Type Severity Reaction Status Date / Time No Known Allergies Allergy Unverified 02/04/19 06:46 Consultations 02/04/19 07:39 ED Decision to Admit Stat 02/04/19 09:16 Consult Cardiology Routine Consult Case Management - Discharge Planning Routine Hospital Course (1) Acute systolic heart failure: Appears compensated from heart failure standpoint after IV diuresis overnight. Cardiology was consulted and added metoprolol succinate 25 mg p.o. twice daily, spironolactone 12.5 mg p.o. daily. Continue baby aspirin and lisinopril 2.5 mg p.o. every morning. Lasix IV was held. The patient was not taking any medication at home and has a history of noncompliance, preferring homeopathic medications. He is agreeable to current regimen. Of note EF is 15 to 20% and he has declined ICD in the past. Continue to monitor on telemetry. Review overnight revealed no evidence of arrhythmia and he remained in sinus rhythm. He will be discharged with current medications and require a follow-up in the [facility] Cardiology office in 1-2 weeks. (2) Chest pain: Chest pain reported initially and serial troponin enzymes ruled out ACS. There was no return of chest pain throughout the remainder of the hospitalization. (3) PAF (paroxysmal atrial fibrillation): Noncompliant with Coumadin in the past, previously recommended. Continues with aspirin for stroke prophylaxis. Currently in sinus rhythm. Continue with rate control with Toprol per recommendation from Cardiology. (4) Obesity: 48 yo man with history of nonischemic cardiomyopathy presented with reports of chest discomfort after waking up feeling a heavy sensation in his chest. Shortness of breath accompanied this, and diaphoresis was noted. On arrival into the ER he was found to be significantly volume overloaded and started on IV Lasix. He was noted to be noncompliant with medications for the last two months preferring [id number] herbal supplements and plant e nzymes. He was admitted to the hospitalist service and cardiology was consulted. Serial cardiac enzymes were ordered and negative overnight. EKG revealed a left bundle branch block. He was placed back on medical therapy to include metoprolol, lisinopril, spironolactone, and aspirin. He remained in sinus rhythm, and with a history of paroxysmal atrial fibrillation the discussion again ensued regarding anticoagulation therapy. He declined anticoagulants at this time. He was counseled at length for the need for compliance with medications prescribed and verbalized understanding with intent to comply. After diuresis his shortness of breath improved and he was stable for discharge. At time of discharge a [id number] examination was performed revealing a hemodynamically stable and afebrile patient who was mentating and ambulating at baseline and tolerating p.o. Exam at time of discharge revealed a regular heart rate and rhythm with S1/S2 heard and no evidence of murmurs, gallops or rubs. Lungs were clear to auscultation and no jaqueline edema was present. An echocardiogram was performed during this admission revealing no significant change from prior study. Specifically LV systolic function was severely reduced with an ejection fraction of 15 to 20% and severe global hypokinesis of the left ventricle. There was mild to moderate mitral regurgitation noted in the right ventricular systolic function was moderately reduced. Consistent with prior conversations, the patient continues to decline ICD placement. In addition to above medications he was sent home on oral furose mide daily and was also placed on atorvastatin daily with an elevated LDL. Close follow-up with primary care and cardiology was recommended and appointments were made prior to discharge. Total Time Total Time Spent Total Time Spent (In Minutes): 60 Total Time Includes: Examination of the Patient, Discharge Planning, Medication Reconciliation, Communication With Other Providers and Other (arranged outpatient follow-up with PCP) Discharge Plan Discharge Items Patient Disposition: Home - Self-Care Reason For Visit: CHF,CHEST PAIN Discharge Diagnosis: Acute systolic heart failure Nonadherence to medication Paroxysmal atrial fibrillation Discharge Goals: Improve disease control Activity: Resume your previous activity Non-emergency contact: Primary Care Provider and [employer] Call non-emergency contact if: you have any medication questions, your symptoms worsen, your pain is not controlled, your pain is worsening, your pain is unusual for you, your pain is concerning for you and you have a fever Follow-up/Referrals: Giovanni Llamas DO [Physician] - Kp Rubio MD [Primary Care Provider] - Diet: Low Sodium (2gm) Addtl Provider Instructions: Please take all medications as instructed on discharge list below. You are being started on multiple new medications including FUROSEMIDE. This medication is a diuretic ("water pill") which you are authorized to take one additional daily as needed for rapid weight gain or shortness of breath as instructed by your attorney recruiter. You have the following appointments: PRIMARY CARE FOLLOW-UP 02/13/2019 11:20 AM Kp Rubio MD [facility] CARDIOLOGY FOLLOW-UP: 02/19/2019 10:30 AM Giovanni Llamas Jr., Cardiology, [facility] Repeat non-fasting blood work is recommended in 1-2 weeks which will be ordered by the above providers. It was a pleasure taking care of you! Please call if you have any questions or problems. You can reach a [facility] hospitalist on duty at [facility] 24 hours a day by calling [phone]. Take care of yourself. Rosemary Rashid, DO [facility] Hospitalist Prescriptions: New lisinopril 2.5 mg Tablet 2.5 mg PO QAM Qty: 30 RF: 1 metoprolol succinate [Toprol XL] 50 mg tablet extended release 24 hr 50 mg PO DAILY Qty: 30 RF: 1 spironolactone 25 mg Tablet 12.5 mg PO DAILY Qty: 30 RF: 1 aspirin [Ecotrin Low Strength] 81 mg Tablet,Delayed Release (Dr/Ec) 81 mg PO QAM Qty: 90 RF: 1 atorvastatin 20 mg tablet 20 mg PO HS Qty: 30 RF: 2 furosemide 20 mg tablet 20 mg PO DAILY Qty: 30 RF: 1 No Action No Known Home Medications RF: 0 Stand-Alone Forms: My [facility] Discharge Orders: Discharge Order (Routine); Ordered 02/06/19 Ordered By: Rosemary Rashid Admission Data Admit Date/Time: 02/04/19 08:09 Attending Provider: Rosemary Rashid Admit Provider: Jamel Lemos Primary Care Provider: Kp Rubio I. Other Providers: Jamel Lemos ; Gustavo Pagan Service: Telemetry
== END 2019-02-06 13:55 | disposition home or self-care (01) | DRG 291 ==
LOC: ED 06:11 → SUATTDRO 08:09 → 2S 08:09

== ENCOUNTER 2019-03-25 08:06 | Inpatient (IN) ==
[2019-03-25 08:40] LABS: Basophils # (auto) 0.05 K/uL (0-0.2); Basophils % (auto) 0.5 %; Eosinophils % (auto) 2.1 %; Hematocrit (blood only) 46.2 % (42-52); Hemoglobin 16.6 g/dL (14.0-18.0); Immature Granulocytes # (auto) 0.05 K/uL (0.00-0.02); Immature Granulocytes % (auto) 0.5 %; Lymphocytes # (auto) 3.17 K/uL (1.2-3.4); Lymphocytes % (auto) 33.7 %; Mean Corpuscular Hemoglobin 32.8 pg (25-34); Mean Corpuscular Hgb Conc 35.9 g/dL (32-36); Mean Corpuscular Volume 91.3 fL (80-100); Mean Platelet Volume 11.3 fL (7.4-10.4); Monocytes # (auto) 0.76 K/uL (0.11-0.59); Monocytes % (auto) 8.1 %; Neutrophils # (auto) 5.19 K/uL (1.4-6.5); Neutrophils % (auto) 55.1 %; Platelet Count 186 K/uL (130-400); RDW Coefficient of Variation 12.4 % (11.5-14.5); RDW Standard Deviation 41.4 fL (36.4-46.3); Red Blood Count 5.06 M/uL (4.7-6.1); White Blood Count 9.42 K/uL (4.8-10.8)
[2019-03-25 08:50] LABS: INR 1.4 (0.9-1.1); Partial Thromboplastin Ratio 1.1; Prothrombin Time 14.3 Seconds (9.0-12.0)
[2019-03-25 08:57] LABS: Alanine Aminotransferase 55 U/L (12-78); Albumin Level 3.8 gm/dl (3.4-5.0); Aspartate Aminotransferase 28 U/L (15-37); BUN Creatinine Ratio 21.1 (10-20); Blood Urea Nitrogen 28 mg/dl (7-18); Carbon Dioxide 27 mmol/L (21-32); Chloride 106 mmol/L (98-107); Creatinine Clr Calc Pharmacy 78.5 ml/min; Est GFR (African American) 71.7; Est GFR (Non-African American) 61.9; Glucose 102 mg/dl (70-99); Lipase 195 U/L (73-393); Magnesium 2.1 mg/dl (1.8-2.4); Potassium 4.4 mmol/L (3.5-5.1); Sodium 139 mmol/L (136-145)
--- NOTE | 2019-03-25 09:04 | XRay Report ---
XR chest 1V portable CLINICAL HISTORY: 48 years-old Male presenting with Chest Pain. TECHNIQUE: Portable upright AP view of the chest was obtained. COMPARISON: 02/05/2019. FINDINGS: Cardiopericardial silhouette markedly enlarged. Prominence of the left atrium suspected. Pulmonary va scular prominence and interlobular septal thickening. Added density of the lung bases is increased fr om prior. Trace bilateral pleural effusions may be present. No large pneumothorax. Osseous structures normal. Upper abdomen normal. IMPRESSION: 1. Marked enlargement of the cardiopericardial silhouette, likely indicating cardiomegaly. Underlyin g pericardial effusion not excluded. 2. Volume overload with advanced congestive change. Developing pulmonary edema not excluded. Electronically signed by: Simón Andrade M.D. 03/25/2019 9:03 AM
[2019-03-25 09:07] LABS: Alkaline Phosphatase 63 U/L (45-117); Bilirubin,Total 0.7 mg/dl (0.2-1); Globulin 3.8 gm/dl (2.5-4.0); Total Protein 7.6 gm/dl (6.4-8.2); Troponin I < 0.015 ng/ml (0-0.045)
[2019-03-25] MEDS ORDERED: SODIUM CHLORIDE 0.9% 1000ML 250 ML IV ONE (09:12)
[2019-03-25] MEDS ORDERED: dilTIAZem HCL 125 MG in DEXTROSE 5% 100 ML IV SCH (09:15)
[2019-03-25] MEDS ORDERED: 0.2 MICRON FILTER SET 1 EA IV SCH (09:30)
[2019-03-25] MEDS ORDERED: AMIODARONE / D5W 360 MG/200 ML BAG IV SCH ×2 (09:30→15:30)
[2019-03-25] MEDS ORDERED: Heparin IV Standard *NO* Bolus IV ONE ×2 (09:42→11:19)
[2019-03-25] MEDS ORDERED: FUROSEMIDE 60 MG in SYRINGE 0 ML IV SCH (10:00)
--- NOTE | 2019-03-25 10:00 | Emergency Department Note ---
Entered by Marilyn Mcbride acting as a scribe for Barrie Holloway DO History of Present Illness General Chief complaint: Shortness of Breath/Dyspnea Stated complaint: SHORT OF BREATH Time Seen by Provider: 03/25/19 08:18 Source: patient Limitations: no limitations History of Present Illness Provider complaint: Shortness of breath Onset (ago): day(s) 1 Location: chest Pain Consistency: + constant Maximum Pain Intensity: 0 Quality: + constant Exacerbated By: + other (lying flat) Associated symptoms: + cough, + shortness of breath and + other (Negative: weight gain); no fever/chills and no nausea/vomiting The patient is a 48 year old male with past medical history of DVT prophylaxis, PAF, chest pain, CHF, HTN, who presents to the ED with complaints of constant shortness of breath that started last night. The patient reports he was coughing last night. He notes he has been out of atrial fibrillation for 2 years until 2 weeks ago. The patient states he saw his doctor on Tuesday and changed his medications and tried to shock him out of it. He notes his shortness of breath is worsened when hes lying flat. The patient states he is on Coumadin and denies alcohol or tobacco use. The patient denies fever, chills, nausea, vomiting, or weight gain. Home Medications Home Medications Medication Instructions Recorded Confirmed Type atorvastatin 20 mg PO HS #30 tab 02/06/19 03/25/19 Rx lisinopril 2.5 mg PO QAM #30 tab 02/06/19 03/25/19 Rx spironolactone 12.5 mg PO DAILY #30 tab 02/06/19 03/25/19 Rx furosemide 40 mg PO BID17 03/25/19 03/25/19 History metoprolol succinate [Toprol XL] 50 mg PO BID 03/25/19 03/25/19 History warfarin 5 mg PO DAILY 03/25/19 03/25/19 History Allergies Allergy/AdvReac Type Severity Reaction Status Date / Time No Known Allergies Allergy Unverified 03/25/19 09:45 Past Med/Surg History Medical History Nonadherence to medication DVT prophylaxis Obesity PAF (paroxysmal atrial fibrillation) (Chronic) CHF (congestive heart failure) (Chronic) Hypertension (Chronic) Chest pain (Resolved) Surgical History History of appendectomy (Resolved) Family History Brother Congestive heart failure (CHF) Coronary heart disease, Onset Age: 40 Sister Congestive heart failure (CHF) Coronary heart disease, Onset Age: 40 Father Coronary heart disease Mother Diabetes Atrial fibrillation Social History Preferred Language: Angolan Communication Ability: Effective 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 and A total of 10 systems reviewed and were otherwise negative Physical Exam Vital Signs Vital Signs - 24 hr 03/25/19 08:08 03/25/19 08:37 03/25/19 09:30 Temperature 36.5 C Temperature Source Oral Sepsis Recent Fever Within 48 Hours No Sepsis Action Taken by Nursing No Action Required Pulse Rate 85 Pulse Rate [Apical] 132 H Pulse Rhythm [Apical] Irregular Pulse Strength [Apical] Normal Respiratory Rate 20 18 Respiratory Effort / Characteristics Non-Labored Spontaneous Non-Labored Spontaneous Respiratory Depth Normal Normal Respiratory Pattern Regular Regular Regular Blood Pressure 108/68 Blood Pressure [Right Arm] 109/77 Blood Pressure Mean 81 Blood Pressure Mean [Right Arm] 87 Blood Pressure Position Sitting Pulse Oximetry 96 93 Oxygen Delivery Method Room Air Room Air Room Air GENERAL: Patient is awake, alert, and in no acute distress.Patient is resting comfortably and showing no signs of anxiety EYES: The conjunctivae are clear. The pupils are round and reactive. EARS, NOSE, MOUTH AND THROAT: The nose is without any evidence of any deformity. Mucous membranes are moist.Tongue is midline NECK: The neck is nontender and supple. RESPIRATORY: Normal respiratory effort is noted. Lung sounds diminished at both bases. Rales at both bases. CARDIOVASCULAR: Tachycardic rate and irregular rhythm noted. No definite murmurs were noted. GASTROINTESTINAL: The abdomen is soft. Bowel sounds are present in all quadrants. Abdomen is nontender. MUSCULOSKELETAL/EXTREMITIES: There is no evidence of gross deformity. Full range of motion is noted in the hips and shoulders. SKIN: There is no obvious evidence of any rash. There are no petechiae, pallor or cyanosis noted. NEUROLOGIC: Patient is awake alert and oriented x3. Course 0817: The patient was evaluated in room B12B. A complete history and physical exam was performed. 0913: Upon reevaluation, the patient is resting comfortably. I discussed lab oratory and radiographic results with him. The patient verbalized agreement of the treatment plan. The patient will be evaluated for further management and care. 0926: I discussed the patient's case with Hilton Figueroa PA-C. The patient will be further evaluated [facility] Consultations Consultation #1: I discussed the patient's case with Hilton Figueroa PA-C. The patient will be [facility] Time: 09:26 Administered Medications Heparin Sodium/Dextrose (Heparin Sodium/Dextrose) 25,000 units in 500 mls @ 30 mls/hr IV .[id number] [facility]; Protocol Stop: 04/24/19 09:44 Last Admin: 03/25/19 10:12 Dose: 1,500 units/hr, 30 mls/hr Documented by: [id number] Cosigned by: [id number] Furosemide 60 mg/ Syringe 6 mls @ 4 mls/min IV BID17 [facility] Stop: 04/24/19 08:59 Last Admin: 03/25/19 12:09 Dose: 4 mls/min Documented by: [id number] Metoprolol Tartrate (Lopressor) 25 mg PO Q6 [facility] Stop: 04/24/19 11:18 Last Admin: 03/25/19 11:54 Dose: Not Given Documented by: [id number] Discontinued Medications Heparin Sodium/Dextrose () 1 ea IV ONE ONE; Protocol Stop: 03/25/19 09:43 Last Admin: 03/25/19 10:17 Dose: Not Given Documented by: [id number] Sodium Chloride (Nss 1000ml) 250 mls @ 999 mls/hr IV .Q16M ONE Stop: 03/25/19 09:27 Last Infusion: 03/25/19 10:17 Dose: 0 mls/hr Documented by: [id number] Admin: 03/25/19 09:34 Dose: 999 mls/hr Documented by: [id number] Amiodarone HCl/Dextrose (Nexterone / D5w) 360 mg in 200 mls @ 33.3 mls/hr IV .Q6H1M [facility] Stop: 03/25/19 15:30 Last Infusion: 03/25/19 10:10 Dose: 0 mls/hr Documented by: [id number] Cosigned by: [id number] Admin: 03/25/19 09:27 Dose: 33.3 mls/hr Documented by: [id number] Cosigned by: [id number] N/A (0.2 Micron Filter Set 17" W/Clave,Non-Dehp) mls @ 0 mls/hr IV TODAY@0930 [facility] Stop: 04/24/19 09:29 Last Admin: 03/25/19 09:29 Dose: 33.3 mls/hr Documented by: [id number] Metoprolol Tartrate (Lopressor) 25 mg PO NOW STA Stop: 03/25/19 10:09 Last Admin: 03/25/19 10:54 Dose: 25 mg Documented by: [id number] Medical Decision Making Differential Diagnosis Differential diagnosis: Etiologies such as infections, reactive airway disease, pneumonia, pneumothorax, COPD, CHF, cardiac ischemia, pulmonary embolism, musculoskeletal, gastrointestinal, as well as others were entertained. Medical Records Attestation: I reviewed the patient's medical records. Home Medications Current Medication List: was personally reviewed by me Laboratory Data Attestation: I reviewed the patient's lab results. Result diagrams: 03/25/19 08:32 03/25/19 08:32 Lab Results 03/25/19 03/25/19 03/25/19 Range/Units 08:32 08:32 08:32 WBC 9.42 (4.8-10.8) K/uL RBC 5.06 (4.7-6.1) M/uL Hgb 16.6 (14.0-18.0) g/dL Hct 46.2 (42-52) % MCV 91.3 (80-100) fL MCH 32.8 (25-34) pg MCHC 35.9 (32-36) g/dL RDW Std Deviation 41.4 (36.4-46.3) fL RDW Coeff of [place] 12.4 (11.5-14.5) % Plt Count 186 (130-400) K/uL MPV 11.3 H (7.4-10.4) fL Immature Gran % (Auto) 0.5 % Neut % (Auto) 55.1 % Lymph % (Auto) 33.7 % [place] % (Auto) 8.1 % Eos % (Auto) 2.1 % Baso % (Auto) 0.5 % Immature Gran # (Auto) 0.05 H (0.00-0.02) K/uL Neut # (Auto) 5.19 (1.4-6.5) K/uL Lymph # (Auto) 3.17 (1.2-3.4) K/uL [place] # (Auto) 0.76 H (0.11-0.59) K/uL Eos # (Auto) 0.20 (0-0.5) K/uL Baso # (Auto) 0.05 (0-0.2) K/uL PT 14.3 H (9.0-12.0) Seconds INR 1.4 H (0.9-1.1) APTT 31.0 (21.0-31.0) Seconds PTT Ratio 1.1 Sodium 139 (136-145) mmol/L Potassium 4.4 (3.5-5.1) mmol/L Chloride 106 (98-107) mmol/L Carbon Dioxide 27 (21-32) mmol/L Anion Gap 6.0 (3-11) BUN 28 H (7-18) mg/dl Creatinine 1.33 (0.6-1.4) mg/dl Est Cr Clr Drug Dosing 78.5 ml/min Est GFR ( Amer) 71.7 Est GFR (Non-Af Amer) 61.9 BUN/Creatinine Ratio 21.1 H (10-20) Glucose 102 H (70-99) mg/dl Calcium 9.0 (8.5-10.1) mg/dl Magnesium 2.1 (1.8-2.4) mg/dl Total Bilirubin 0.7 (0.2-1) mg/dl AST 28 (15-37) U/L ALT 55 (12-78) U/L Alkaline Phosphatase 63 (45-117) U/L Troponin I < 0.015 (0-0.045) ng/ml Total Protein 7.6 (6.4-8.2) gm/dl Albumin 3.8 (3.4-5.0) gm/dl Globulin 3.8 (2.5-4.0) gm/dl Albumin/Globulin Ratio 1.0 (0.9-2) Lipase 195 (73-393) U/L TSH 1.460 (0.300-4.500) uIu/ml Imaging Data Radiologist's Impression: Radiology results as stated below per my review and the radiologist's interpretation: XR chest 1V portable CLINICAL HISTORY: 48 years-old Male presenting with Chest Pain. TECHNIQUE: Portable upright AP view of the chest was obtained. COMPARISON: 02/05/2019. FINDINGS: Cardiopericardial silhouette markedly enlarged. Prominence of the left atrium suspected. Pulmonary vascular prominence and interlobular septal thickening. Added density of the lung bases is increased from prior. Trace bilateral pleural effusions may be present. No large pneumothorax. Osseous structures normal. Upper abdomen normal. IMPRESSION: 1. Marked enlargement of the cardiopericardial silhouette, likely indicating cardiomegaly. Underlying pericardial effusion not excluded. 2. Volume overload with advanced congestive change. Developing pulmonary edema not excluded. Electronically signed by: Simón Andrade M.D. 03/25/2019 9:03 AM ECG Data Attestation: I personally reviewed and interpreted this ECG as follows: Indication: SOB/dyspnea Rate (beats per minute): 101 Rhythm: atrial fibrillation Findings: + other (Poor R wave progression ) and + LBBB Comparison ECG Date: from (02/06/19) Change: the following changes noted (Atrial fibrillation replaced sinus rhythm) Blood Pressure Blood Pressure Findings: Normal blood pressure Blood Pressure Disposition: did not require urgent referral MDM Narrative The patient is a 48-year-old male who has a history of paroxysmal atrial fibrillation. Approximately 2 weeks ago he felt that he went back into atrial fibrillation and is been having palpitations. Over the last few days the patient has been having shortness of breath and orthopnea. He is also been expensing some chest discomfort. The patient was found to be in rapid atrial fibrillation but he did appear to have some signs of pulmonary edema on physical exam. He was treated with a very small fluid bolus. At one point in the room the patient had nonsustained wide-complex tachycardia. This resolved spontaneously however given this fact the patient was started on IV amiodarone for rate control. I discussed the patient's laboratory and radiographic studies with him. 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 He was also started on IV heparin. I discussed patient's condition with the on-call [facility] hospitalist group. They have agreed to evaluate the patient in the emergency department for further management disposition. Impression & Plan Atrial fibrillation with RVR, Chest pain, Pulmonary edema, Orthopnea, Shortness of breath Critical Care Time Critical Care Time: Yes Total Critical Care Time: 45 I have personally spent greater than 45 minutes of critical care time in the direct management of this patient. This includes bedside care, interpretation of diagnostic studies, and testing, discussion with consultants, patient, and family members, and other required patient management activities. This 45 minutes is in excess of all separately billable procedures. Discharge Plan Visit Data *Final* Discharge Date/Time: 03/25/19 10:38 Chief Complaint: Shortness of Breath/Dyspnea Stated Complaint: SHORT OF BREATH ED Provider: Barrie Holloway Discharge Problem: Atrial fibrillation with RVR, Chest pain, Pulmonary edema, Orthopnea, Shortness of breath Patient Disposition: Admitted As Inpatient Discharge Instructions Interventions: ED Discharge Assessment Last Done: 03/25/19 10:38 Discharge Problem: Chest pain Qualifiers: Chest pain type: unspecified Qualified Code(s): R07.9 - Chest pain, unspecified Pulmonary edema Qualifiers: Chronicity: acute Qualified Code(s): J81.0 - Acute pulmonary edema The scribe's documentation has been prepared under my direction and personally reviewed by me in its entirety. I confirm that the note above accurately reflects all work, treatment, procedures, and medical decision making performed by me.
--- NOTE | 2019-03-25 10:03 | History & Physical Report ---
Date of Service March 25, 2019 Assessment & Plan (1) Shortness of breath: (2) Atrial fibrillation with RVR: This is a 48-year-old male who has significant past medical history of nonischemic cardiomyopathy EF 20 to 24%, PAF, pulmonary hypertension, obesity who presents to [facility] ED secondary to shortness of breath x1 day. In ED patient was noted to be in atrial fibrillation with RVR, heart rates variable 101-150s Chest x-ray with volume overload and advanced congestive change CBC, CMP relatively unremarkable, troponin and TSH WNL, INR subtherapeutic 1.4 In ED patient initially started on IV amiodarone along with IV heparin In ED patient did have multiple runs of couplets and triplets but nothing sustained Admit patient to PCU Consult cardiology, discussed case with Dr. Kurtz Discontinue IV amiodarone due to subtherapeutic INR and duration of A. fib unknown pt high risk for cardioembolic cva Metoprolol tartrate 25 mg every 6 hours Continue IV heparin bridge and continue warfarin 5 mg daily Daily INR repeat trop at 2pm (3) Systolic and diastolic CHF, acute on chronic: Decompensated biventricular systolic and diastolic CHF IV Lasix 60 mg twice daily, monitor response Strict I and O Daily standing weights heart healthy, low NA diet obtain echocardiogram, last done 07/26/17 revealed EF 20-24% with severe global hypokinesis, biventricular cardiomyopathy with reduced R ventricular function as well, Grade II diastolic dysfunction (4) Hypertension: blood pressure on low side on lisinopril, metoprolol, lasix and aldactone as outpt hold lisinopril today, re eval in a.m. if blood pressure allows will resume (5) Obesity: BMI 40.2 diet and lifestyle modifications (6) DVT prophylaxis: IV heparin until INR > 2, wafarin, SCD/TEDS Disposition: admit to telemetry Follow up: PCP Dr. Rubio upon discharge along with appropriate cardiology follow up Patient was seen and examined in collaboration with Dr. Shepherd, please see addendum History of Present Illness Chief Complaint: SOB x 1 day. Primary Care Provider: Kp Rubio MD This is a 48-year-old male who has significant past medical history of nonischemic cardiomyopathy EF 20 to 24%, PAF, pulmonary hypertension, obesity who presents to [facility] ED secondary to shortness of breath x1 day. is at bedside. Patient elicits he was unable to sleep last night due to feeling short of breath, unable to take deep breath. Also complains of frequent dry cough. Symptoms were slightly improved with sitting upright, but still felt like he was having difficulty "getting air." He further elicits having palpitations, feeling like heart racing, substernal nonradiating chest pressure. He denies any recent fever, chills, sweats, lightheadedness, dizziness, syncope, shortness breath at rest, hemoptysis, nausea, vomiting, diarrhea, changes bowel or urinary habits. Of significance patient was seen by global process owner Dr. Llamas on 03/22. At this visit it was reported patient was experiencing dyspnea on exertion for approximately 1 week, and overall not feeling well. At that visit he was noted to be in A. fib with RVR. He does have a past medical history of paroxysmal A. fib which required cardioversion and he was anticoagulated on Coumadin. Patient was noncompliant with Coumadin/INR testing and when rhythm regulated this has since been discontinued. He was restarted back on Coumadin 5 mg daily, last dose yesterday. Is been Toprol succinate was also increased to 50 mg twice a day. He was offered inpatient admission for sotalol load, but patient declined. He also declined Lovenox bridging, NOAC due to financial reasons. During his visit on 03/[address] Llamas he was further noted to be in decompensated CHF. At that time his Lasix was increased from 20 mg daily to 40 mg twice a day. Patient states yesterday he noticed his weight was up 3 to 4 pounds and therefore he took 3 doses of 40 mg Lasix. His baseline weight is approximately 247. He does note increased swelling of bilateral lower extremities. Pt has significant family hx of CAD and cardiomyopathy. Father from CAD. 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 Allergies Allergy/AdvReac Type Severity Reaction Status Date / Time No Known Allergies Allergy Unverified 03/25/19 09:45 Home Medications Home Medications Medication Instructions Recorded Confirmed Type atorvastatin 20 mg PO HS #30 tab 02/06/19 03/25/19 Rx lisinopril 2.5 mg PO QAM #30 tab 02/06/19 03/25/19 Rx spironolactone 12.5 mg PO DAILY #30 tab 02/06/19 03/25/19 Rx furosemide 40 mg PO BID17 03/25/19 03/25/19 History metoprolol succinate [Toprol XL] 50 mg PO BID 03/25/19 03/25/19 History warfarin 5 mg PO DAILY 03/25/19 03/25/19 History Past Med/Surg History Medical History Nonadherence to medication DVT prophylaxis Obesity PAF (paroxysmal atrial fibrillation) (Chronic) CHF (congestive heart failure) (Chronic) Hypertension (Chronic) Chest pain (Resolved) Surgical History History of appendectomy (Resolved) Family History Brother Congestive heart failure (CHF) Coronary heart disease, Onset Age: 40 Sister Congestive heart failure (CHF) Coronary heart disease, Onset Age: 40 Father Coronary heart disease Mother Diabetes Atrial fibrillation Social History Preferred Language: Bahraini Communication Ability: Effective 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 Beliefs That Will Affect Care: None marital status: Current Living Situation: Spouse Feels Safe at Home: Yes Safety Concerns: Feels Safe At This Time Smoking Status: Never smoker Second Hand Exposure: No ; Hx Alcohol Use: No Hx Substance Use: No Review of Systems Review of Systems: All systems reviewed & are unremarkable except as noted in HPI & below Physical Exam Physical Exam: Constitutional: WD/WN, M, vitals as above, NAD, sitting up in bed, pleasant, conversing easily Head: Normocephalic, Atraumatic Eyes: PERRL, conjunctivae normal, anicteric sclerae ENMT: external ear and nose normal, oropharynx normal Neck: trachea midline, no thyromegaly normal visual inspection Respiratory: normal respiratory effort, lungs clear to auscultation, no wheeze, rales, rhonchi. Normal insp/exp effort, no accessory muscle use Cardiovascular: IRR/IRR, no murmur, +1 pretibial edema b/l, no erythema, warmth, negative homans Vessels: no JVD or carotid bruit Chest: normal inspection of chest Abdomen: normal bowel sounds, soft, nontender, no hepatosplenomegaly Musculoskeletal: no cyanosis or clubbing, extremities motor strength 5/5 Skin: no rashes, warm normal turgor Neurologic: PERRL, EOMI, accommodation nl, no face palsy, no dysarthria CN's II-XI intact bilaterally and moves all extremities Psychiatric: A+Ox3, euthymic affect : deferred Results & Data Vital Signs (Past 12 Hours) Vital Signs Temp Pulse Pulse Resp BP BP Pulse Ox 03/25/19 09:30 132 H 18 109/77 93 03/25/19 08:08 36.5 C 85 20 108/68 96 Laboratory Results Short CBC 03/25/19 Range/Units 08:32 WBC 9.42 (4.8-10.8) K/uL Hgb 16.6 (14.0-18.0) g/dL Hct 46.2 (42-52) % Plt Count 186 (130-400) K/uL BMP 03/25/19 08:32 Sodium 139 Potassium 4.4 Chloride 106 Carbon Dioxide 27 BUN 28 H Creatinine 1.33 Glucose 102 H Calcium 9.0 Cardiac Enzymes 03/25/19 Range/Units 08:32 Troponin I < 0.015 (0-0.045) ng/ml Liver Function 03/25/19 Range/Units 08:32 Total Bilirubin 0.7 (0.2-1) mg/dl AST 28 (15-37) U/L ALT 55 (12-78) U/L Alkaline Phosphatase 63 (45-117) U/L Albumin 3.8 (3.4-5.0) gm/dl Diagnostic Findings CXR: IMPRESSION: 1. Marked enlargement of the cardiopericardial silhouette, likely indicating cardiomegaly. Underlying pericardial effusion not excluded. 2. Volume overload with advanced congestive change. Developing pulmonary edema not excluded. Medications Administered N/A (0.2 Micron Filter Set 17" W/Clave,Non-Dehp) mls @ 0 mls/hr IV TODAY@0930 [facility] Stop: 04/24/19 09:29 Last Admin: 03/25/19 09:29 Dose: 33.3 mls/hr Documented by: [id number] Heparin Sodium/Dextrose (Heparin Sodium/Dextrose) 25,000 units in 500 mls @ 30 mls/hr IV .[id number] [facility]; Protocol Stop: 04/24/19 09:44 Last Admin: 03/25/19 10:12 Dose: 1,500 units/hr, 30 mls/hr Documented by: [id number] Cosigned by: [id number] Discontinued Medications Heparin Sodium/Dextrose () 1 ea IV ONE ONE; Protocol Stop: 03/25/19 09:43 Last Admin: 03/25/19 10:17 Dose: Not Given Documented by: [id number] Sodium Chloride (Nss 1000ml) 250 mls @ 999 mls/hr IV .Q16M ONE Stop: 03/25/19 09:27 Last Infusion: 03/25/19 10:17 Dose: 0 mls/hr Documented by: [id number] Admin: 03/25/19 09:34 Dose: 999 mls/hr Documented by: [id number] Amiodarone HCl/Dextrose (Nexterone / D5w) 360 mg in 200 mls @ 33.3 mls/hr IV .Q6H1M [facility] Stop: 03/25/19 15:30 Last Infusion: 03/25/19 10:10 Dose: 0 mls/hr Documented by: [id number] Cosigned by: [id number] Admin: 03/25/19 09:27 Dose: 33.3 mls/hr Documented by: [id number] Cosigned by: [id number] ECG Rate (beats per minute): 101 Rhythm: atrial fibrillation Findings: + PVC (couplet) Change: the following changes noted Additional Comments: now in afib with RVR Code Status & VTE Plan Code Status Full Code VTE Prophylaxis Plan VTE Prophylaxis will be ordered: Yes Supervising Physician Co-Signing Physician Notes I saw this patient with the physician medical library assistant, I participated in the history, physical, review of systems, and physical exam. I reviewed the medications with the patient and the physician medical library assistant and helped reconcile the medications. I helped take a detailed family and social history as well. I formulated the assessment and plan personally with the physician medical library assistant and went over it with the patient. ROS-No Headache, No Visual Changes, No Nausea, No Vomiting, No Fever, No Chills, No Neck Pain or Stiffness, No Chest Pain, No Palpitations, No SOB, No HELM, No Cough, No Sputum, No Wheezing, No Abdominal Pain, No Diarrhea, No Hematemesis, No Hemoptysis, No Unexpected Weight Loss, No Flank pain, No Melena, No Hematochezia, No Frequency, No Urgency, No Burning, No Hematuria, No Rashes, No Diaphoresis. Appetite is Normal Physical Exam Gen-AAO x 3, NAD, Afebrile, obese Head-NCAT, EOMI, PERRLA, Anicteric Sclera, No Posterior Pharyngeal Erythema Neck-Supple, No JVD, No Thyromegaly, No Masses, No LAD, No Bruits Lungs-Clear to Auscultation Bilaterally, No Rales, No Rhonchi, No Wheezing, No Crepitus Chest-Irreg/Irreg, No S4, +S1, +S2, No S3, No Murmurs, No Rubs, No Gallops Abdomen-Soft, Bowel Sounds Present, Non Tender, Non Distended, No Hepatomegaly, No Splenomegaly, No Palpable Masses, No Rebound, No Rigidity, No Guarding Musculoskeletal-Full Range of Motion Bilaterally, No CVAT Extremities-No Cyanosis, No Clubbing, No Edema Nuero-Cranial Nerves II-XII grossly intact, Motor WNL, DTRs WNL, Strength WNL, Non Focal Psych-Normal Mood
[2019-03-25] MEDS ORDERED: METOPROLOL TARTRATE 25 MG TAB PO STA (10:08)
[2019-03-25] MEDS: HEPARIN SODIUM/DEXTROSE 25,000 UNITS/500 ML BAG IV SCH (10:12)
[2019-03-25] MEDS ORDERED: ALUMINUM/MAGNESIUM SUSP 30 ML UDC PO PRN (11:19)
[2019-03-25] MEDS ORDERED: MAGNESIUM HYDROXIDE SUSP 30 ML UDC PO PRN (11:19)
[2019-03-25] MEDS ORDERED: ACETAMINOPHEN 325 MG TAB PO PRN (11:19)
[2019-03-25] MEDS ORDERED: POLYETHYLENE (MIRALAX) 17 GM PACK PO PRN (11:19)
[2019-03-25] MEDS ORDERED: HEPARIN SODIUM/DEXTROSE 25,000 UNITS/500 ML BAG IV SCH (11:19)
[2019-03-25] MEDS ORDERED: NITROGLYCERIN SL 0.4 MG/TAB TAB SL PRN (11:19)
[2019-03-25] MEDS: METOPROLOL TARTRATE 25 MG TAB PO SCH ×2 (11:54→17:13)
[2019-03-25] MEDS: FUROSEMIDE 60 MG in SYRINGE 0 ML IV SCH ×2 (12:09→17:12)
--- NOTE | 2019-03-25 16:21 | Cardiology Consultation ---
Date of Consultation March 25, 2019 Assessment & Plan (1) Systolic and diastolic CHF, acute on chronic: Agree with plans for furosemide 60 mg twice daily, oral spironolactone. (2) Atrial fibrillation with RVR: Rate controlled with metoprolol tartrate 25 mg p.o. every 6 until heart rate optimized, will then transition back to the succinate formulation. Stroke prophylaxis: Continue heparin infusion, continue Coumadin loading Repeat limited echocardiogram given significant enlargement of the cardiac silhouette on chest x-ray. History of Present Illness Attending Physician: Jarad Shepherd DO History of Present Illness Mr Blackwell is a 48 year old male seen in cardiology consultation per the request of Cassandra Block PA-C for the evaluation of atrial fibrillation with rapid ventricular response, nonischemic cardiomyopathy, subjective complaint of shortness of breath. The patient has a history of nonischemic cardiomyopathy, with cardiac catheterization performed in 2015 showing no significant obstructive CAD. He also has a history of paroxysmal atrial fibrillation. He had previously followed with Dr. Llamas of our practice, but had not kept his follow-up visits more recently and then was hospitalized with acute systolic heart failure last month in February 2019. Medication therapy is reinitiated. Sinus rhythm was noted during that hospital stay. The patient presented for outpatient follow-up with Dr. Llamas 3 days ago and was noted to be in atrial fibrillation with mildly elevated ventricular re sponse. His metoprolol succinate dose was increased to 50 mg twice daily and Coumadin was initiated patient however felt significantly short of breath with minimal exertion as well as with lying supine last night prompting emergency room presentation today. EKG on presentation 03/24/2019 at 8:18 AM revealed atrial fibrillation at 101 bpm with occasional PVCs, incomplete right bundle branch block, poor R wave progression to lateral precordial leads suggestive age-indeterminate lateral infarct. Compared to the prior tracing performed 02/06 atrial fibrillation is replaced sinus rhythm. During my assessment of the patient in room 202. His breathing had improved having received metoprolol and furosemide. Atrial fibrillation with rapid ventricular rate in the range of 100 to 120 bpm however was still present with frequent PVCs including ventricular couplets, and one 4 beat ventricular run had also been observed on telemetry Allergies Allergy/AdvReac Type Severity Reaction Status Date / Time No Known Allergies Allergy Unverified 03/25/19 09:45 Home Medications Home Medications Medication Instructions Recorded Confirmed Type atorvastatin 20 mg PO HS #30 tab 02/06/19 03/25/19 Rx lisinopril 2.5 mg PO QAM #30 tab 02/06/19 03/25/19 Rx spironolactone 12.5 mg PO DAILY #30 tab 02/06/19 03/25/19 Rx furosemide 40 mg PO [id number] 03/25/19 03/25/19 History metoprolol succinate [Toprol XL] 50 mg PO BID 03/25/19 03/25/19 History warfarin 5 mg PO DAILY 03/25/19 03/25/19 History Patient History Medical History Nonadherence to medication DVT prophylaxis Obesity PAF (paroxysmal atrial fibrillation) (Chronic) CHF (congestive heart failure) (Chronic) Hypertension (Chronic) Chest pain (Resolved) Surgical History History of appendectomy (Resolved) Family History Brother Congestive heart failure (CHF) Coronary heart disease, Onset Age: 40 Sister Congestive heart failure (CHF) Coronary heart disease, Onset Age: 40 Father Coronary heart disease Mother Diabetes Atrial fibrillation Social History Preferred Language: Latvian Communication Ability: Effective Metal Tile Lather Required: No Beliefs That Will Affect Care: None marital status: Current Living Situation: Spouse Feels Safe at Home: Yes Safety Concerns: Feels Safe At This Time Smoking Status: Never smoker Second Hand Exposure: No ; Hx Alcohol Use: No Hx Substance Use: No Review of Systems Review of Systems: All systems reviewed & are unremarkable except as noted in HPI & below Physical Exam Physical Exam: Temp Pulse Resp BP Pulse Ox 36.6 C 108 H 24 113/90 96 03/25/19 16:08 03/25/19 16:08 03/25/19 16:08 03/25/19 16:08 03/25/19 16:08 Constitutional: WD/WN, vitals as above Respiratory: normal respiratory effort, lungs clear to auscultation Cardiovascular: Rate/Rhythm: + tachycardic and + irregularly irregular Gastrointestinal (Abdomen): normal bowel sounds, soft, nontender, no hepatosplenomegaly Neurologic: PERRL, EOMI, accommodation nl, no face palsy, no dysarthria Results & Data Vital Signs (Past 12 Hours) Vital Signs Temp Pulse Pulse Resp BP BP Pulse Ox 03/25/19 11:19 36.5 C 110 H 104/72 94 03/25/19 11:18 36.5 C 115 H 20 104/72 94 03/25/19 10:38 110 H 19 106/69 94 03/25/19 09:30 132 H 18 109/77 93 03/25/19 08:08 36.5 C 85 20 108/68 96 Laboratory Results Cardiac Enzymes 03/25/19 03/25/19 Range/Units 08:32 14:19 AST 28 (15-37) U/L Troponin I < 0.015 < 0.015 (0-0.045) ng/ml Coagulation 03/25/19 Range/Units 08:32 PT 14.3 H (9.0-12.0) Seconds APTT 31.0 (21.0-31.0) Seconds CBC 03/25/19 Range/Units 08:32 WBC 9.42 (4.8-10.8) K/uL RBC 5.06 (4.7-6.1) M/uL Hgb 16.6 (14.0-18.0) g/dL Hct 46.2 (42-52) % Plt Count 186 (130-400) K/uL Neut # (Auto) 5.19 (1.4-6.5) K/uL Lymph # (Auto) 3.17 (1.2-3.4) K/uL [place] # (Auto) 0.76 H (0.11-0.59) K/uL Eos # (Auto) 0.20 (0-0.5) K/uL Baso # (Auto) 0.05 (0-0.2) K/uL Comprehensive Metabolic Panel 03/25/19 Range/Units 08:32 Sodium 139 (136-145) mmol/L Potassium 4.4 (3.5-5.1) mmol/L Chloride 106 (98-107) mmol/L Carbon Dioxide 27 (21-32) mmol/L BUN 28 H (7-18) mg/dl Creatinine 1.33 (0.6-1.4) mg/dl Glucose 102 H (70-99) mg/dl Calcium 9.0 (8.5-10.1) mg/dl AST 28 (15-37) U/L ALT 55 (12-78) U/L Alkaline Phosphatase 63 (45-117) U/L Total Protein 7.6 (6.4-8.2) gm/dl Albumin 3.8 (3.4-5.0) gm/dl Intake and Output 03/25/19 03/25/19 03/25/19 06:59 14:59 22:59 Intake Total 473.865 / 473.865 Output Total 1775 / 1775 Balance -1301.135 / -1301.135 Intake: IV 273.865 / 273.865 NEXTERONE / D5W 360 mg In 200 23.865 / 23.865 ml @ 33.3 mls/hr IV .Q6H1M [facility] Rx#:[id number] Nss 1000ML 250 ml @ 999 mls/hr 250 / 250 IV .Q16M [facility] Rx#:[id number] Oral 200 / 200 Output: Urine 1775 / 1775 Other: Weight 113 kg Patient Weight 03/26/19 06:59 Weight 113 kg Diagnostic Findings Summary of transthoracic echocardiogram performed 02/04/2019, the left ventricle is moderately dilated The left ventricular systolic function is severely reduced with severe left ventricular global hypokinesis, LVEF 15 to 20%. Mild to moderate mitral regurgitation was present. The right ventricular systolic function was moderately reduced.
[2019-03-25] MEDS: WARFARIN SOD 5 MG TAB PO SCH (17:11)
[2019-03-25 18:14] LABS: Partial Thromboplastin Ratio 1.8
[2019-03-25 18:17] LABS: Partial Thromboplastin Time 49.9 Seconds (21.0-31.0)
[2019-03-25] MEDS: ATORVASTATIN 20 MG TAB PO SCH (20:15)
[2019-03-26] MEDS: METOPROLOL TARTRATE 25 MG TAB PO SCH ×4 (00:09→17:24)
[2019-03-26] MEDS: HEPARIN SODIUM/DEXTROSE 25,000 UNITS/500 ML BAG IV SCH (00:42)
[2019-03-26 06:06] LABS: Hematocrit (blood only) 44.5 % (42-52); Hemoglobin 15.7 g/dL (14.0-18.0); Mean Corpuscular Hemoglobin 32.3 pg (25-34); Mean Corpuscular Hgb Conc 35.3 g/dL (32-36); Mean Corpuscular Volume 91.6 fL (80-100); Mean Platelet Volume 11.2 fL (7.4-10.4); Platelet Count 172 K/uL (130-400); RDW Coefficient of Variation 12.4 % (11.5-14.5); RDW Standard Deviation 41.5 fL (36.4-46.3); Red Blood Count 4.86 M/uL (4.7-6.1); White Blood Count 8.37 K/uL (4.8-10.8)
[2019-03-26 06:19] LABS: INR 2.2 (0.9-1.1); Prothrombin Time 21.4 Seconds (9.0-12.0)
[2019-03-26 06:42] LABS: BUN Creatinine Ratio 18.7 (10-20); Calcium 8.9 mg/dl (8.5-10.1); Est GFR (African American) 71.1; Est GFR (Non-African American) 61.3; Potassium 3.6 mmol/L (3.5-5.1)
[2019-03-26 06:47] LABS: Partial Thromboplastin Ratio 2.3
--- NOTE | 2019-03-26 06:47 | Hospitalist Progress Note ---
Date of Service March 26, 2019 Assessment & Plan (1) Shortness of breath: (2) Atrial fibrillation with RVR: This is a 48-year-old male who has significant past medical history of nonischemic cardiomyopathy EF 20 to 24%, PAF, pulmonary hypertension, obesity who presents to [facility] ED secondary to shortness of breath x1 day. In ED patient was noted to be in atrial fibrillation with RVR, heart rates variable 101-150s Chest x-ray with volume overload and advanced congestive change CBC, CMP relatively unremarkable, troponin and TSH WNL, INR subtherapeutic 1.4 In ED patient initially started on IV amiodarone along with IV heparin In ED patient did have multiple runs of couplets and triplets but nothing sustained Possible DCCV today Metoprolol tartrate 25 mg every 6 hours Continue IV heparin bridge and continue warfarin 5 mg daily Daily INR (3) Systolic and diastolic CHF, acute on chronic: Decompensated biventricular systolic and diastolic CHF IV Lasix 60 mg twice daily, monitor response-Change to PO today Strict I and O Daily standing weights heart healthy, low NA diet obtain echocardiogram, last done 07/26/17 revealed EF 20-24% with severe global hypokinesis, biventricular cardiomyopathy with reduced R ventricular function as well, Grade II diastolic dysfunction (4) Hypertension: blood pressure still on the low side on lisinopril, metoprolol, lasix and aldactone as outpt hold lisinopril today, re eval in a.m. if blood pressure allows will resume (5) Obesity: BMI 40.2 diet and lifestyle modifications (6) DVT prophylaxis: IV heparin until INR > 2, wafarin, SCD/TEDS Disposition: continue telemetry labs checked Follow up: PCP Dr. Rubio upon discharge along with appropriate cardiology follow up ROS-No Headache, No Visual Changes, No Nausea, No Vomiting, No Fever, No Chills, No Neck Pain or Stiffness, No Chest Pain, No Palpitations, No SOB, No HELM, No Cough, No Sputum, No Wheezing, No Abdominal Pain, No Diarrhea, No Hematemesis, No Hemoptysis, No Unexpected Weight Loss, No Flank pain, No Melena, No Hematochezia, No Frequency, No Urgency, No Burning, No Hematuria, No Rashes, No Diaphoresis. Appetite is Normal Physical Exam Gen-AAO x 3, NAD, Afebrile Head-NCAT, EOMI, PERRLA, Anicteric Sclera, No Posterior Pharyngeal Erythema Neck-Supple, No JVD, No Thyromegaly, No Masses, No LAD, No Bruits Lungs-Clear to Auscultation Bilaterally, No Rales, No Rhonchi, No Wheezing, No Crepitus Chest-Irreg/irreg No S4, +S1, +S2, No S3, No Murmurs, No Rubs, No Gallops, obese Abdomen-Soft, Bowel Sounds Present, Non Tender, Non Distended, No Hepatomegaly, No Splenomegaly, No Palpable Masses, No Rebound, No Rigidity, No Guarding Musculoskeletal-Full Range of Motion Bilaterally, No CVAT Extremities-No Cyanosis, No Clubbing, No Edema Nuero-Cranial Nerves II-XII grossly intact, Motor WNL, DTRs WNL, Strength WNL, Non Focal Psych-Normal Mood Results & Data Vital Signs (Past 12 Hours) Vital Signs Temp Pulse Pulse Resp BP Pulse Ox 03/26/19 03:11 36.5 C 82 18 92/74 L 92 03/26/19 00:00 121 H 03/25/19 23:15 36.7 C 82 18 97/81 L 92 03/25/19 19:28 36.9 C 104 H 28 H 122/80 94
[2019-03-26 06:49] LABS: Partial Thromboplastin Time 61.8 Seconds (21.0-31.0)
[2019-03-26] MEDS ORDERED: METOPROLOL TARTRATE 25 MG TAB PO STA (07:56)
[2019-03-26] MEDS ORDERED: POTASSIUM CHLORIDE 20 MEQ TABCR PO STA (07:59)
[2019-03-26] MEDS ORDERED: AMIODARONE 200 MG TAB PO STA (08:00)
[2019-03-26] MEDS: FUROSEMIDE 40 MG TAB PO SCH ×2 (08:02→20:18)
[2019-03-26] MEDS ORDERED: WARFARIN SOD 5 MG TAB PO SCH (09:00)
[2019-03-26] MEDS ORDERED: SPIRONOLACTONE 25 MG TAB PO SCH (09:00)
--- NOTE | 2019-03-26 09:21 | Cardiology Progress Note ---
Date of Service March 26, 2019 Assessment & Plan (1) Systolic and diastolic CHF, acute on chronic: (2) Atrial fibrillation with RVR: (3) NSVT (nonsustained ventricular tachycardia): Patient with history of nonischemic cardiomyopathy, severe left ventricular chamber dilatation noted on echocardiogram yesterday with severe LV systolic dysfunction, LVEF in the range of 15 to 20%. Patient with findings suggestive of low output syndrome. He is not acutely volume overloaded on physical exam or radiographically and his blood pressure is relatively low. Metoprolol tartrate has been increased to 37.5 mg every 6 hours for rate control and treatment of the nonsustained ventricular tachycardia. Oral amiodarone has been initiated. My initial recommendation yesterday was that given the fact that the patient feels he reverted to atrial fibrillation 2 weeks ago, and that he has not been on chronic anticoagulation, that adding an antiarrhythmic medication was to be avoided in order to prevent chemical conversion in the setting of possible left atrial appendage thrombus. However now given atrial fibrillation with very rapid ventricular response, left atrial enlargement, and severe cardiomyopathy and nonsustained ventricular tachycardia, I think it is in the patient's best interest to start oral amiodarone. I think the likelihood of converting him from atrial fibrillation to sinus rhythm is low. But that this medication will help control the ventricular arrhythmia, and starting it now will help increase the chances of a successful cardioversion. I plan a transesophageal echocardiogram guided cardioversion tomorrow. With the hopes of allowing another 24 hours for medication treatment to build up in his system to increase the chances of success. Stroke prophylaxis: His INR is 2.2 today. Therefore his heparin infusion has been discontinued. We will continue Coumadin. We will need to monitor his INR closely given the addition of amiodarone. Amiodarone surveillance: Baseline chest x-ray reveals stable findings, baseline TSH and liver function test within normal limits. Subjective Chief complaint: Follow-up shortness of breath Subjective: Patient describes less shortness of breath this morning. At rest, atrial fibrillation in the range of 100 bpm is present, but the ventricular rates become very rapid with minimal activity such as walking a few feet to the bathroom up to 140 bpm. Frequent isolated PVCs are noted including short salvos of nonsustained ventricular tachycardia in the range of 6-7 beats in duration. Review of Systems Review of Systems: All systems reviewed & are unremarkable except as noted in HPI & below Physical Exam Physical Exam: Temp Pulse Resp BP Pulse Ox 36.6 C 101 H 16 91/73 L 96 03/26/19 07:05 03/26/19 07:05 03/26/19 07:05 03/26/19 07:05 03/26/19 07:05 Constitutional: WD/WN, vitals as above Respiratory: normal respiratory effort, lungs clear to auscultation Cardiovascular: Rate/Rhythm: + tachycardic and + irregularly irregular Heart Sounds: no murmur Vessels: + JVD Extremities: no edema Gastrointestinal (Abdomen): normal bowel sounds, soft, nontender, no hepatosplenomegaly Skin: no rashes, warm and dry Neurologic: PERRL, EOMI, accommodation nl, no face palsy, no dysarthria Results & Data Vital Signs (Past 12 Hours) Vital Signs Temp Pulse Pulse Resp BP Pulse Ox 03/26/19 07:05 36.6 C 101 H 16 91/73 L 96 03/26/19 03:11 36.5 C 82 18 92/74 L 92 03/26/19 00:00 121 H 03/25/19 23:15 36.7 C 82 18 97/81 L 92 Laboratory Results Cardiac Enzymes 03/25/19 Range/Units 14:19 Troponin I < 0.015 (0-0.045) ng/ml Coagulation 03/25/19 03/26/19 03/26/19 Range/Units 17:40 05:28 05:28 PT 21.4 H (9.0-12.0) Seconds APTT 49.9 H* 61.8 H* (21.0-31.0) Seconds CBC 03/26/19 Range/Units 05:28 WBC 8.37 (4.8-10.8) K/uL RBC 4.86 (4.7-6.1) M/uL Hgb 15.7 (14.0-18.0) g/dL Hct 44.5 (42-52) % Plt Count 172 (130-400) K/uL Comprehensive Metabolic Panel 03/26/19 Range/Units 05:28 Sodium 140 (136-145) mmol/L Potassium 3.6 D (3.5-5.1) mmol/L Chloride 105 (98-107) mmol/L Carbon Dioxide 27 (21-32) mmol/L BUN 25 H (7-18) mg/dl Creatinine 1.34 (0.6-1.4) mg/dl Glucose 98 (70-99) mg/dl Calcium 8.9 (8.5-10.1) mg/dl Intake and Output 03/25/19 03/26/19 03/26/19 22:59 06:59 14:59 Intake Total 862.5 / 1508.865 172.5 / 1508.865 Output Total 1974 350 / 4100 Balance -1112.5 / -2591.135 -177.5 / -2591.135 Intake: IV 262.5 / 708.865 172.5 / 708.865 HEPARIN SODIUM/DEXTROSE 25,000 262.5 / 435.0 172.5 / 435.0 units In 500 ml @ 1,500 UNITS/ HR 30 mls/hr IV .[id number] [facility] Rx #:[id number] Oral 600 / 800 Output: Urine 1974 350 / 4100 Other: Other Intake Source NPO Weight 110.7 kg Medications Administered Current Inpatient Medications Acetaminophen (Tylenol) 650 mg PO Q4H PRN PRN Reason: Pain or Fever Stop: 04/24/19 11:18 Al Hydrox/Mg Hydrox/Simethicone (Maalox) 15 ml PO Q4H PRN PRN Reason: Dyspepsia Stop: 04/24/19 11:18 Amiodarone HCl (Cordarone) 200 mg PO TIDM [facility] Stop: 04/25/19 11:59 Atorvastatin Calcium (Lipitor) 20 mg PO HS [facility] Stop: 04/24/19 20:59 Last Admin: 03/25/19 20:15 Dose: 20 mg Documented by: Furosemide (Lasix) 40 mg PO Q12 [facility] Stop: 04/25/19 08:59 Last Admin: 03/26/19 08:02 Dose: 40 mg Documented by: Magnesium Hydroxide (Milk Of Magnesia) 30 ml PO Q12H PRN PRN Reason: Constipation Stop: 04/24/19 11:18 Metoprolol Tartrate (Lopressor) 37.5 mg PO Q6 [facility] Stop: 04/25/19 11:59 Nitroglycerin (Nitrostat) 0.4 mg SL UD PRN PRN Reason: Chest Pain Stop: 04/24/19 11:18 Polyethylene Glycol (Miralax Powder Packet) 17 gm PO DAILY PRN PRN Reason: Constipation Stop: 04/24/19 11:18 Spironolactone (Aldactone) 12.5 mg PO DAILY [facility] Stop: 04/25/19 08:59 Last Admin: 03/26/19 08:02 Dose: 12.5 mg Documented by: Warfarin Sodium (Coumadin) 5 mg PO DAILY@1600 [facility] Stop: 04/24/19 15:59 Last Admin: 03/25/19 17:11 Dose: 5 mg Documented by:
[2019-03-26] MEDS: AMIODARONE 200 MG TAB PO SCH ×2 (11:34→16:58)
[2019-03-26] MEDS: WARFARIN SOD 5 MG TAB PO SCH (16:57)
[2019-03-26] MEDS: ATORVASTATIN 20 MG TAB PO SCH (20:19)
[2019-03-27] MEDS: METOPROLOL TARTRATE 25 MG TAB PO SCH ×5 (05:20→23:36)
[2019-03-27 05:38] LABS: Hematocrit (blood only) 44.9 % (42-52); Hemoglobin 15.8 g/dL (14.0-18.0); Mean Corpuscular Hemoglobin 31.9 pg (25-34); Mean Corpuscular Hgb Conc 35.2 g/dL (32-36); Mean Corpuscular Volume 90.5 fL (80-100); Platelet Count 161 K/uL (130-400); RDW Coefficient of Variation 12.3 % (11.5-14.5); RDW Standard Deviation 40.6 fL (36.4-46.3); Red Blood Count 4.96 M/uL (4.7-6.1); White Blood Count 8.09 K/uL (4.8-10.8)
[2019-03-27 05:48] LABS: Prothrombin Time 28.8 Seconds (9.0-12.0)
[2019-03-27 06:17] LABS: BUN Creatinine Ratio 18.8 (10-20); Calcium 8.9 mg/dl (8.5-10.1); Creatinine Clr Calc Pharmacy 70.4 ml/min; Est GFR (African American) 64.1; Est GFR (Non-African American) 55.3
--- NOTE | 2019-03-27 07:05 | Hospitalist Progress Note ---
Date of Service March 27, 2019 Assessment & Plan (1) Shortness of breath: (2) Atrial fibrillation with RVR: This is a 48-year-old male who has significant past medical history of nonischemic cardiomyopathy EF 20 to 24%, PAF, pulmonary hypertension, obesity who presents to [facility] ED secondary to shortness of breath x1 day. In ED patient was noted to be in atrial fibrillation with RVR, heart rates variable 101-150s Chest x-ray with volume overload and advanced congestive change CBC, CMP relatively unremarkable, troponin and TSH WNL, INR subtherapeutic 1.4 In ED patient initially started on IV amiodarone along with IV heparin In ED patient did have multiple runs of couplets and triplets but nothing sustained DCCV today, breathing well, on PO lasix Metoprolol Continue IV heparin bridge and continue warfarin 5 mg daily Daily INR (3) Systolic and diastolic CHF, acute on chronic: Decompensated biventricular systolic and diastolic CHF PO Lasix Strict I and O Daily standing weights heart healthy, low NA diet echocardiogram, last done 07/26/17 revealed EF 20-24% with severe global hypokinesis, biventricular cardiomyopathy with reduced R ventricular function as well, Grade II diastolic dysfunction Echo-15-20% EF, Hopefully increases after DCCV (4) Hypertension: blood pressure good today on lisinopril, metoprolol, lasix and aldactone as outpt hold lisinopril today, re eval in a.m. if blood pressure allows will resume (5) Obesity: BMI 40.2 diet and lifestyle modifications (6) DVT prophylaxis: IV heparin until INR > 2, wafarin, SCD/TEDS Disposition: continue telemetry labs checked Follow up: PCP Dr. Ruboi upon discharge along with appropriate cardiology follow up ROS-No Headache, No Visual Changes, No Nausea, No Vomiting, No Fever, No Chills, No Neck Pain or Stiffness, No Chest Pain, No Palpitations, No SOB, No HELM, No Cough, No Sputum, No Wheezing, No Abdominal Pain, No Diarrhea, No Hematemesis, No Hemoptysis, No Unexpected Weight Loss, No Flank pain, No Melena, No Hematochezia, No Frequency, No Urgency, No Burning, No Hematuria, No Rashes, No Diaphoresis. Appetite is Normal Physical Exam Gen-AAO x 3, NAD, Afebrile Head-NCAT, EOMI, PERRLA, Anicteric Sclera, No Posterior Pharyngeal Erythema Neck-Supple, No JVD, No Thyromegaly, No Masses, No LAD, No Bruits Lungs-Clear to Auscultation Bilaterally, No Rales, No Rhonchi, No Wheezing, No Crepitus Chest-Irreg/irreg No S4, +S1, +S2, No S3, No Murmurs, No Rubs, No Gallops, obese Abdomen-Soft, Bowel Sounds Present, Non Tender, Non Distended, No Hepatomegaly, No Splenomegaly, No Palpable Masses, No Rebound, No Rigidity, No Guarding Musculoskeletal-Full Range of Motion Bilaterally, No CVAT Extremities-No Cyanosis, No Clubbing, No Edema Nuero-Cranial Nerves II-XII grossly intact, Motor WNL, DTRs WNL, Strength WNL, Non Focal Psych-Normal Mood Results & Data Vital Signs (Past 12 Hours) Vital Signs Temp Pulse Pulse Resp BP Pulse Ox 03/27/19 03:23 36.8 C 73 18 108/75 92 03/26/19 23:26 36.5 C 78 17 122/69 92 03/26/19 23:12 82 03/26/19 19:16 36.8 C 82 22 109/83 92 Current Diagnoses Obesity, unspecified (03/26/19) Essential (primary) hypertension (03/26/19) Ventricular tachycardia (03/26/19) Unspecified atrial fibrillation (03/26/19) Acute on chronic combined systolic (congestive) and diastolic (congestive) heart failure (03/26/19) Shortness of breath (03/26/19) Encounter for prophylactic measures, unspecified (03/26/19) Allergies No Known Allergies Allergy (Unverified 03/25/19 09:45) Height/Weight/Isolation Height 5 ft 6 in Weight 110 kg Chemistry 03/25/19 03/26/19 03/27/19 08:32 05:28 05:18 Sodium 139 140 139 Potassium 4.4 3.6 D 4.0 Chloride 106 105 105 Carbon Dioxide 27 27 28 Anion Gap 6.0 8.0 6.0 BUN 28 H 25 H 27 H Creatinine 1.33 1.34 1.46 H Glucose 102 H 98 92
[2019-03-27] MEDS ORDERED: LIDOCAINE HCL 2% 2 ML VIAL/AMP(20MG/ML) INFIL ONE (07:09)
[2019-03-27] MEDS ORDERED: PROPOFOL IV EMULSION 10 MG/ML 20 ML VIAL IV ONE (07:09)
[2019-03-27] MEDS ORDERED: CANNULA ONE (07:33)
[2019-03-27] MEDS ORDERED: BENZOCAIN/TETRACA/BUTAM SPRAY 200 APPLN/20 GM SPRY EXT ONE (07:33)
[2019-03-27] MEDS ORDERED: LIDOCAINE HCL VISCOUS SOLN 2% 15 ML UDC ONE (07:33)
--- NOTE | 2019-03-27 07:37 | Anesthesiology Consultation ---
Date of Service March 27, 2019 Assessment & Plan (1) Encounter for pre-operative examination: Chart Review Chart Review: Acceptable Risk for Surgery Consults Requested none ASA ASA4 Proposed Anesthesia Anesthesia Type: MAC Risk / Benefits Reviewed With: PT / POA / Parent / Guardian, Accepts Plan and Informed Consent Obtained History Surgery Operation Date: 03/27/19 07:45 Proposed Procedures p Transesophageal Echo w/Anesthesia - Yonis Kurtz DO s Transesophageal Echocardiogram and Cardioversion w/Anes - Yonis Kurtz DO Height/Weight Height: 5 ft 6 in Weight: 110 kg Allergies Allergy/AdvReac Type Severity Reaction Status Date / Time No Known Allergies Allergy Unverified 03/25/19 09:45 Medications Home Medications Medication Instructions Recorded Confirmed Last Taken atorvastatin 20 mg PO HS #30 tab 02/06/19 03/25/19 Unknown lisinopril 2.5 mg PO QAM #30 tab 02/06/19 03/25/19 Unknown spironolactone 12.5 mg PO DAILY #30 tab 02/06/19 03/25/19 Unknown furosemide 40 mg PO BID17 03/25/19 03/25/19 03/24/19 22:00 metoprolol succinate [Toprol XL] 50 mg PO BID 03/25/19 03/25/19 Unknown warfarin 5 mg PO DAILY 03/25/19 03/25/19 Unknown Active Medications Generic Name Dose Route Start Last Admin Trade Name Freq PRN Reason Stop Dose Admin Amiodarone HCl 200 mg 03/26/19 12:00 03/26/19 16:58 Cordarone PO 04/25/19 11:59 200 mg TIDM HILTON Administration Atorvastatin Calcium 20 mg 03/25/19 21:00 03/26/19 20:19 Lipitor PO 04/24/19 20:59 20 mg HS HILTON Administration Furosemide 40 mg 03/26/19 09:00 03/26/19 20:18 Lasix PO 04/25/19 08:59 40 mg Q12 HILTON Administration Metoprolol Tartrate 37.5 mg 03/26/19 12:00 03/27/19 05:20 Lopressor PO 04/25/19 11:59 37.5 mg Q6 HILTON Administration Spironolactone 12.5 mg 03/26/19 09:00 03/26/19 08:02 Aldactone PO 04/25/19 08:59 12.5 mg DAILY HILTON Administration Warfarin Sodium 5 mg 03/25/19 16:00 03/26/19 16:57 Coumadin PO 04/24/19 15:59 5 mg DAILY@1600 HILTON Administration NPO Date Last Intake of Fluids: 03/26/19 Time Last Intake of Fluids: 22:30 Date Last Intake of Solids: 03/26/19 Time Last Intake of Solids: 22:30 Past Medical History Medical History Nonadherence to medication DVT prophylaxis Obesity PAF (paroxysmal atrial fibrillation) (Chronic) CHF (congestive heart failure) (Chronic) Hypertension (Chronic) Chest pain (Resolved) Exercise / Class Metabolic Activity III < 4 Walking/Shop/Light housework Past Family History Family History Brother Congestive heart failure (CHF) Coronary heart disease, Onset Age: 40 Sister Congestive heart failure (CHF) Coronary heart disease, Onset Age: 40 Father Coronary heart disease Mother Diabetes Atrial fibrillation Past Surgical History Surgical History History of appendectomy (Resolved) Past Anesthesia History No Hx of Anesthesia Complications and No Family Hx of Anesthesia Complications History of PONV No Hx of PONV and No Hx of Motion Sickness Social History Smoking Status: Never smoker Hx Alcohol Use: No Hx Substance Use: No substance use type: does not use Physical Exam Vital Signs Last Vital Signs Temp 97.5 F L 03/27/19 07:04 Pulse 94 H 03/27/19 07:04 Resp 18 03/27/19 07:04 BP 118/83 03/27/19 07:04 Pulse Ox 94 03/27/19 07:04 ENMT Mouth: no dentition abnormality Thyromental Distance: > or= 3.5 Finger Breadths Mallampati Class: II Neck normal visual inspection Respiratory normal respiratory effort Auscultation: lungs clear to auscultation bilaterally Cardiovascular Rate/Rhythm: + abnormal rate and + abnormal rhythm Testing Laboratory Results 03/27/19 05:18 03/27/19 05:18 PT 28.8 Seconds (9.0-12.0) H 03/27/19 05:18 INR 3.0 (0.9-1.1) H 03/27/19 05:18 APTT 61.8 Seconds (21.0-31.0) H* 03/26/19 05:28 Electrocardiogram Date: 03/26/19 Atrial fibrillation with rapid ventricular response with premature ventricular or aberrantly conducted complexes, rate 103 bpm Left axis deviation Non-specific intra-ventricular conduction delay Minimal voltage criteria for LVH, may be normal variant ( Butler product ) Nonspecific ST and T wave abnormality Abnormal ECG When compared with ECG of 25-MAR-2019 08:18, No significant change was found Confirmed by Blas Purdy ([id number]) on 03/26/2019 1:34:30 PM Chest X-Ray Date: 03/25/19 IMPRESSION: 1. Marked enlargement of the cardiopericardial silhouette, likely indicating cardiomegaly. Underlying pericardial effusion not excluded. 2. Volume overload with advanced congestive change. Developing pulmonary edema not excluded. Echocardiogram Date: 03/25/19 EF: 15-20% Severe global hypokinesis Mild MR RV systolic function is moderately reduced
[2019-03-27] MEDS: AMIODARONE 200 MG TAB PO SCH (08:45)
--- NOTE | 2019-03-27 08:49 | Post Operative Brief Note ---
Cardiology Brief Post Op Date of Surgery March 27, 2019 Pre & Post Diagnosis Preprocedure diagnosis: Acute systolic heart failure, severe left ventricular systolic dysfunction due to nonischemic cardiomyopathy, atrial fibrillation with rapid ventricular response Post procedure diagnosis: Left atrial appendage thrombus, moderate to severe mitral regurgitation Operation Date: 03/27/19 07:45 Procedure After informed consent was obtained and a timeout was performed the patient was sedated with the assistance of anesthesia receiving a total of 80 mg of IV lidocaine and 110 mg of IV propofol and divided doses. A focused transesophageal echocardiogram was performed for risk stratification prior to consideration of direct-current cardioversion. The patient was found to have a small left atrial appendage, with a mobile left atrial appendage thrombus. A prominent left upper pulmonary vein was visualized. The left atrium was severely enlarged. The left ventricular chamber size was severely dilated. Severe left ventricular systolic dysfunction was noted, ejection fraction in the range of 15-20%. Moderate to severe mitral regurgitation was present, Wilder classification IIIb, with chordal tethering due to severe left ventricular chamber dilatation, and resultant central malcoaptation of the mitral valve apparatus. Cardioversion was not performed due to the finding of left atrial appendage thrombus. 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
[2019-03-27] MEDS ORDERED: DIGOXIN 250 MCG in SYRINGE 9 ML IV ONE (09:00)
--- NOTE | 2019-03-27 09:08 | Cardiology Progress Note ---
Date of Service March 27, 2019 Assessment & Plan (1) HFrEF (heart failure with reduced ejection fraction): (2) Non-ischemic cardiomyopathy: Patient is a 48-year-old male who initially presented with systolic heart failure in June 2016, cardiac catheterization exclude coronary disease during that hospital stay, and he went on to have a transesophageal echocardiogram guided direct current cardioversion during that hospital stay for coexistent atrial fibrillation. He had been placed on medication therapy, and in 2017, his ejection fraction had improved somewhat. He presented with recurrent systolic heart failure for which he was hospitalized in February 2019. At that time sinus rhythm was present. An incomplete left bundle branch block morphology was noted on EKG at that time, and persistent present, with QRS duration in the range of 112-122 ms. The patient had apparently been off his previous medication therapy he states for an interval of 3 months. Appropriate medication therapy was therefore reinitiated in starting 02/04/2019. He was in sinus rhythm at the time of discharge on 02/06/2019. He presented as an outpatient a few days ago, and was subsequently hospitalized with atrial fibrillation with rapid ventricular response, he believes his symptoms persisted for about 2 weeks. Due to his severe symptoms and atrial fibrillation with rapid ventricular response despite up titration of metoprolol, transesophageal echocardiogram guided cardioversion was attempted this morning, but he is found to have a left atrial appendage thrombus and therefore cardioversion was not performed. Therapeutics: Continue beta-daniel, currently metoprolol tartrate 37.5 mg p.o. every 6 hours, will titrate as tolerated, with dose somewhat limited due to his relative low blood pressure, and will transition back to succinate. Discontinue amiodarone due to finding of left atrial appendage thrombus. Start digoxin for further rate control and inotropic effects. Increase prolactin from 12.5 to 25 mg daily. Given the significant findings of severe LV systolic dysfunction LVEF in the range of 15 to 20% with severe left ventricular chamber and left atrial enlargement on echocardiogram, I am not optimistic that his ejection fraction is going to improve to greater than 35%. We will plan on medication therapy for 3 months prior to consideration of AICD, and perhaps biventricular AICD given his mildly prolonged QRS duration. His echocardiogram however does not have the appearance of elevated syncope, but rather global left ventricular hypokinesis. The patient had declined AICD in the past. We will readdress this with him. In the meantime, I think it is best that he is bridged with a Life Vest wearable defibrillator. Unfortunately, there are cost concerns, as the patient does not have insurance. My office is going to contact [facility] to explore the financial implications of a LifeVest. (3) Atrial fibrillation with RVR: Stroke prophylaxis: Coumadin Rate control metoprolol plus digoxin. Continue anticoagulation for 1 month, then repeat transesophageal echocardiogram, and risk stratify for cardioversion. Would consider adding amiodarone after his ensure that he does not have a left atrial appendage thrombus for rhythm control. (4) NSVT (nonsustained ventricular tachycardia): Metoprolol. Amiodarone discontinued due to presence of left atrial appendage thrombus to avoid pharmacologic conversion until he has had therapeutically anticoagulated for 1 month. (5) Functional mitral regurgitation: Patient with findings of Wilder classification IIIB (functional) mitral regurgitation. This is at least moderate, and perhaps severe. Is due to dilatation of the left ventricular chamber with resultant chordal tethering and displacement of the mitral valve leaflets, with resultant central malcoaptation of the mitral valve leaflets. Continue medication therapy for cardiomyopathy. (6) Thrombus of left atrial appendage: Anticoagulate as noted above. Subjective Chief complaint: Follow-up exertional shortness of breath Subjective: Patient seen prior to, during, and post transesophageal echocardiogram this morning. A transesophageal echocardiogram was performed for risk stratification prior to consideration of direct-current cardioversion. The patient however was found to have a small mobile left atrial appendage thrombus and therefore cardioversion was not completed. At rest, atrial fibrillation had been present preprocedure with ventricular rates in the range of 90 to 110 bpm. Occasional PVCs and short runs of nonsustained VT in the range of 3 to 6 bpm have been observed, but have been less frequent on telemetry in the last 24 hours compared to his initial presentation. Review of Systems Review of Systems: All systems reviewed & are unremarkable except as noted in HPI & below Physical Exam Physical Exam: Temp Pulse Resp BP Pulse Ox 36.4 C L 94 H 18 118/83 94 03/27/19 07:04 03/27/19 07:04 03/27/19 07:04 03/27/19 07:04 03/27/19 07:04 Constitutional: WD/WN, vitals as above Respiratory: normal respiratory effort, lungs clear to auscultation Cardiovascular: Rate/Rhythm: + tachycardic and + irregularly irregular Heart Sounds: + murmur (II/mineral 6 systolic murmur) Extremities: no edema Gastrointestinal (Abdomen): normal bowel sounds, soft, nontender, no hepatosplenomegaly Neurologic: PERRL, EOMI, accommodation nl, no face palsy, no dysarthria Results & Data Vital Signs (Past 12 Hours) Vital Signs Temp Pulse Pulse Resp BP Pulse Ox 03/27/19 07:04 36.4 C L 94 H 18 118/83 94 03/27/19 03:23 36.8 C 73 18 108/75 92 03/26/19 23:26 36.5 C 78 17 122/69 92 03/26/19 23:12 82 Laboratory Results Coagulation 03/27/2019, INR 3 03/27/19 Range/Units 05:18 PT 28.8 H (9.0-12.0) Seconds CBC 03/27/19 Range/Units 05:18 WBC 8.09 (4.8-10.8) K/uL RBC 4.96 (4.7-6.1) M/uL Hgb 15.8 (14.0-18.0) g/dL Hct 44.9 (42-52) % Plt Count 161 (130-400) K/uL Comprehensive Metabolic Panel 03/27/19 Range/Units 05:18 Sodium 139 (136-145) mmol/L Potassium 4.0 (3.5-5.1) mmol/L Chloride 105 (98-107) mmol/L Carbon Dioxide 28 (21-32) mmol/L BUN 27 H (7-18) mg/dl Creatinine 1.46 H (0.6-1.4) mg/dl Glucose 92 (70-99) mg/dl Calcium 8.9 (8.5-10.1) mg/dl Intake and Output 03/26/19 03/27/19 03/27/19 22:59 06:59 14:59 Intake Total 700 / 1220 Output Total 350 / 1650 800 / 1650 Balance 350 / -430 -800 / -430 Intake: IV 500 / 500 HEPARIN SODIUM/DEXTROSE 25,000 500 / 500 units In 500 ml @ 1,500 UNITS/ HR 30 mls/hr IV .[id number] [facility] Rx #:[id number] Oral 200 / 720 Output: Urine 350 / 1650 800 / 1650 Other: Other Intake Source NPO Weight 110 kg 110 kg Patient Weight 03/28/19 06:59 Weight 110 kg :
--- NOTE | 2019-03-27 09:17 | Anesthesiology Progress Note ---
Date of Service March 27, 2019 Anesthesia Post Procedure Vital Signs Vital Signs: Temp Pulse Pulse Resp BP Pulse Ox 03/27/19 07:04 97.5 F L 94 H 18 118/83 94 03/27/19 03:23 98.2 F 73 18 108/75 92 03/26/19 23:26 97.7 F 78 17 122/69 92 03/26/19 23:12 82 03/26/19 19:16 98.2 F 82 22 109/83 92 03/26/19 15:09 97.9 F 82 22 100/78 93 03/26/19 11:03 97.5 F L 79 16 97/75 L 95 Transfer of Care Handoff Completed per policy Notes Mental Status: alert / awake / arousable and participated in evaluation Patient Amnestic to Procedure: Yes Nausea / Vomiting: adequately controlled Pain: adequately controlled Airway Patency, RR, SpO2: stable & adequate BP & HR: stable & adequate Hydration State: stable & adequate Anesthetic Complications: no major complications apparent and Pt Satisfied with anesthetic care
[2019-03-27] MEDS: SPIRONOLACTONE 25 MG TAB PO SCH (09:53)
[2019-03-27] MEDS: FUROSEMIDE 40 MG TAB PO SCH ×2 (09:53→19:36)
[2019-03-27] MEDS: DIGOXIN 0.25 MG TAB PO SCH (15:06)
[2019-03-27] MEDS: WARFARIN SOD 5 MG TAB PO SCH (15:06)
[2019-03-27] MEDS: ATORVASTATIN 20 MG TAB PO SCH (19:36)
[2019-03-28] MEDS: METOPROLOL TARTRATE 25 MG TAB PO SCH ×2 (05:38→11:47)
[2019-03-28 05:49] LABS: Hemoglobin 16.2 g/dL (14.0-18.0); Mean Corpuscular Hemoglobin 32.3 pg (25-34); Mean Corpuscular Hgb Conc 35.2 g/dL (32-36); Mean Corpuscular Volume 91.8 fL (80-100); Mean Platelet Volume 11.4 fL (7.4-10.4); Platelet Count 170 K/uL (130-400); RDW Coefficient of Variation 12.4 % (11.5-14.5); RDW Standard Deviation 41.5 fL (36.4-46.3); Red Blood Count 5.01 M/uL (4.7-6.1); White Blood Count 7.97 K/uL (4.8-10.8)
[2019-03-28 06:18] LABS: Albumin Level 3.7 gm/dl (3.4-5.0); BUN Creatinine Ratio 17.5 (10-20); Calcium 8.8 mg/dl (8.5-10.1); Creatinine Clr Calc Pharmacy 70.1 ml/min; Est GFR (African American) 63.6; Est GFR (Non-African American) 54.8; Potassium 4.1 mmol/L (3.5-5.1)
[2019-03-28 06:21] LABS: Bilirubin,Total 0.7 mg/dl (0.2-1); Globulin 3.8 gm/dl (2.5-4.0); Total Protein 7.5 gm/dl (6.4-8.2)
[2019-03-28] MEDS: SPIRONOLACTONE 25 MG TAB PO SCH (07:58)
[2019-03-28] MEDS: FUROSEMIDE 40 MG TAB PO SCH (07:58)
--- NOTE | 2019-03-28 08:04 | Hospitalist Progress Note ---
Date of Service March 28, 2019 Assessment & Plan (1) Shortness of breath: (2) Atrial fibrillation with RVR: This is a 48-year-old male who has significant past medical history of nonischemic cardiomyopathy EF 20 to 24%, PAF, pulmonary hypertension, obesity who presents to [facility] ED secondary to shortness of breath x1 day. In ED patient was noted to be in atrial fibrillation with RVR, heart rates variable 101-150s Chest x-ray with volume overload and advanced congestive change CBC, CMP relatively unremarkable, troponin and TSH WNL, INR subtherapeutic 1.4 In ED patient initially started on IV amiodarone along with IV heparin In ED patient did have multiple runs of couplets and triplets but nothing sustained DCCV was not done sec to clot in [place], 3 months A/C, entertaining life vest AICD, Titrating Dig and Lopressor, Off Amiodarone Metoprolol Warfarin is therapeutic Daily INR (3) Systolic and diastolic CHF, acute on chronic: Decompensated biventricular systolic and diastolic CHF PO Lasix Strict I and O Daily standing weights heart healthy, low NA diet echocardiogram, last done 07/26/17 revealed EF 20-24% with severe global hypokinesis, biventricular cardiomyopathy with reduced R ventricular function as well, Grade II diastolic dysfunction Echo-15-20% EF DC when OK c Cardiology (4) Hypertension: blood pressure good today off lisinopril for Low BP, metoprolol, lasix and aldactone as outpt (5) Obesity: BMI 40.2 diet and lifestyle modifications (6) DVT prophylaxis: Stop IV heparin Disposition: continue telemetry labs checked Follow up: PCP Dr. Rubio upon discharge along with cardiology ROS-No Headache, No Visual Changes, No Nausea, No Vomiting, No Fever, No Chills, No Neck Pain or Stiffness, No Chest Pain, No Palpitations, No SOB, No HELM, No Cough, No Sputum, No Wheezing, No Abdominal Pain, No Diarrhea, No Hematemesis, No Hemoptysis, No Unexpected Weight Loss, No Flank pain, No Melena, No Hematochezia, No Frequency, No Urgency, No Burning, No Hematuria, No Rashes, No Diaphoresis. Appetite is Normal Physical Exam Gen-AAO x 3, NAD, Afebrile Head-NCAT, EOMI, PERRLA, Anicteric Sclera, No Posterior Pharyngeal Erythema Neck-Supple, No JVD, No Thyromegaly, No Masses, No LAD, No Bruits Lungs-Clear to Auscultation Bilaterally, No Rales, No Rhonchi, No Wheezing, No Crepitus Chest-Irreg/irreg No S4, +S1, +S2, No S3, No Murmurs, No Rubs, No Gallops, obese Abdomen-Soft, Bowel Sounds Present, Non Tender, Non Distended, No Hepatomegaly, No Splenomegaly, No Palpable Masses, No Rebound, No Rigidity, No Guarding Musculoskeletal-Full Range of Motion Bilaterally, No CVAT Extremities-No Cyanosis, No Clubbing, No Edema Nuero-Cranial Nerves II-XII grossly intact, Motor WNL, DTRs WNL, Strength WNL, Non Focal Psych-Normal Mood Results & Data Vital Signs (Past 12 Hours) Vital Signs Temp Pulse Resp BP Pulse Ox 03/28/19 07:15 36.4 C L 82 22 120/83 97 03/28/19 03:12 36.5 C 72 18 106/83 93 03/27/19 23:24 36.5 C 84 18 99/65 L 93 Current Diagnoses Obesity, unspecified (03/26/19) Essential (primary) hypertension (03/26/19) Other cardiomyopathies (03/26/19) Ventricular tachycardia (03/26/19) Unspecified atrial fibrillation (03/26/19) Unspecified systolic (congestive) heart failure (03/26/19) Acute on chronic combined systolic (congestive) and diastolic (congestive) heart failure (03/26/19) Intracardiac thrombosis, not elsewhere classified (03/26/19) Shortness of breath (03/26/19) Encounter for other preprocedural examination (03/26/19) Encounter for prophylactic measures, unspecified (03/26/19) Allergies No Known Allergies Allergy (Unverified 03/25/19 09:45) Height/Weight/Isolation Height 5 ft 6 in Weight 110.5 kg Chemistry 03/27/19 03/28/19 05:18 04:54 Sodium 139 140 Potassium 4.0 4.1 Chloride 105 105 Carbon Dioxide 28 29 Anion Gap 6.0 6.0 BUN 27 H 26 H Creatinine 1.46 H 1.47 H Glucose 92 91
[2019-03-28 08:27] LABS: Prothrombin Time 37.1 Seconds (9.0-12.0)
--- NOTE | 2019-03-28 08:42 | Anesthesiology Progress Note ---
Date of Service March 28, 2019 Anesthesia Post Procedure Vital Signs Vital Signs: Temp Pulse Pulse Resp BP Pulse Ox 03/28/19 07:15 36.4 C L 82 22 120/83 97 03/28/19 03:12 36.5 C 72 18 106/83 93 03/27/19 23:24 36.5 C 84 18 99/65 L 93 03/27/19 19:24 36.7 C 107 H 20 118/75 93 03/27/19 15:06 109 H 03/27/19 15:00 36.5 C 94 H 20 104/75 94 03/27/19 11:30 97 H 03/27/19 11:15 93 H 03/27/19 11:06 36.5 C 105 H 16 94/69 L 92 03/27/19 11:00 85 03/27/19 10:45 103 H 03/27/19 10:30 97 H 03/27/19 10:15 99 H 03/27/19 10:00 96 H 03/27/19 09:53 110 H 03/27/19 09:45 104 H 03/27/19 09:30 111 H 03/27/19 09:15 116 H 03/27/19 09:10 100 H Notes Mental Status: alert / awake / arousable and participated in evaluation Patient Amnestic to Procedure: Yes Nausea / Vomiting: adequately controlled Pain: adequately controlled Airway Patency, RR, SpO2: stable & adequate BP & HR: stable & adequate Hydration State: stable & adequate Anesthetic Complications: no major complications apparent and Pt Satisfied with anesthetic care
--- NOTE | 2019-03-28 14:19 | Cardiology Progress Note ---
Date of Service March 28, 2019 Assessment & Plan (1) HFrEF (heart failure with reduced ejection fraction): (2) Non-ischemic cardiomyopathy: (3) Thrombus of left atrial appendage: (4) Functional mitral regurgitation: (5) Atrial fibrillation with RVR: Transesophageal echocardiogram performed 03/27, revealed left atrial appendage thrombus, and therefore cardioversion canceled. Patient's INR today is 4, and therefore his Coumadin needs to be held. Would administer 2.5 mg tomorrow, and then resume 5 mg daily on 03/30/2019. Patient stable for discharge on the following medications: Metoprolol succinate, 100 mg daily in a.m., 50 mg at bedtime Digoxin 0.25 mg daily. Lisinopril 2.5 mg daily in morning Spironolactone 25 mg daily Furosemide 40 mg by mouth twice a day, first thing in the morning, and in the afternoon at about 2 PM. Atorvastatin 20 mg daily Coumadin 2.5 mg on 03/29, and 5 mg daily thereafter with close anticoagulation clinic follow-up. Outpatient cardiology follow-up will be arranged to be performed within the next week. Plan for repeat transesophageal echocardiogram, possible cardioversion after 4 weeks of uninterrupted therapeutic anticoagulation. My previous notes and described the patient to be on 3 months of optimize medication therapy before considering AICD for primary prevention of sudden cardiac . Upon further review however he has had a nonischemic cardiomyopathy since diagnosis in June,, and has persistent left ventricular systolic dysfunction. An echocardiogram performed in July 2017 as an outpatient revealed an ejection fraction in the range of 20 to 24%. He previously did not have an AICD due to his personal preference. The patient did recently have 3 months of being off of his cardiac medications, but it appears by review of serial echocardiograms, he has had an interval significant decline in his LV systolic function, and increase in his LV chamber size, and now has functional mitral regurgitation due to LV chamber dilatation. I believe he has already proven that even with medication therapy, his ejection fraction did not improve from time of diagnosis in 2015 until 2018, I think would be reasonable to proceed with AICD sooner rather than later, however now he has the left atrial appendage thrombus, and therefore I think it is ideal for him to complete at least 1 month of anticoagulation before it is interrupted for a nonemergency procedure. I had a discussion with the patient about this, and he would prefer to wait a month to be on anticoagulation prior to AICD implant. A [employer] Life[employer]est Wearable defibrillator is to be fitted at 3 pm today, he may be discharged after. I had a long talk with the patient regarding his occupation. 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 Due to his severe cardiomyopathy, I feel he is not a candidate to continue with this occupation, as he puts himself at risk for bodily harm or even potentially others if he is on the road driving for extended periods of time. I therefore recommended that he applies for Social Security disability. He agrees that this would be ideal, and case management is going to provide him instructions about where to apply. Subjective Chief complaint: Follow-up exertional shortness of breath Subjective: Patient states he feels improved. Denies palpitations, and he states that shortness of breath is improved. His atrial fibrillation rates have trended toward improvement, his ventricular rates are in the range of 7090 bpm at rest, he does get up to the range of 140 bpm with walking, but overall this is improved compared to presentation. No recent episodes of PVCs or nonsustained ventricular tachycardia within the last 24 hours. Review of Systems Review of Systems: All systems reviewed & are unremarkable except as noted in HPI & below Physical Exam Physical Exam: Temp Pulse Resp BP Pulse Ox 36.6 C 88 18 119/74 95 03/28/19 11:05 03/28/19 11:05 03/28/19 11:05 03/28/19 11:05 03/28/19 11:05 Constitutional: WD/WN, vitals as above Respiratory: normal respiratory effort, lungs clear to auscultation Cardiovascular: Rate/Rhythm: + irregularly irregular Vessels: + JVD Extremities: no edema Gastrointestinal (Abdomen): normal bowel sounds, soft, nontender, no hepatosplenomegaly Neurologic: PERRL, EOMI, accommodation nl, no face palsy, no dysarthria Results & Data Vital Signs (Past 12 Hours) Vital Signs Temp Pulse Resp BP Pulse Ox 03/28/19 11:05 36.6 C 88 18 119/74 95 03/28/19 07:15 36.4 C L 82 22 120/83 97 03/28/19 03:12 36.5 C 72 18 106/83 93 Laboratory Results Cardiac Enzymes 03/28/19 Range/Units 04:54 AST 23 (15-37) U/L Coagulation 03/28/19 Range/Units 04:54 PT 37.1 H (9.0-12.0) Seconds CBC 03/28/19 Range/Units 04:54 WBC 7.97 (4.8-10.8) K/uL RBC 5.01 (4.7-6.1) M/uL Hgb 16.2 (14.0-18.0) g/dL Hct 46.0 (42-52) % Plt Count 170 (130-400) K/uL Comprehensive Metabolic Panel 03/28/19 Range/Units 04:54 Sodium 140 (136-145) mmol/L Potassium 4.1 (3.5-5.1) mmol/L Chloride 105 (98-107) mmol/L Carbon Dioxide 29 (21-32) mmol/L BUN 26 H (7-18) mg/dl Creatinine 1.47 H (0.6-1.4) mg/dl Glucose 91 (70-99) mg/dl Calcium 8.8 (8.5-10.1) mg/dl AST 23 (15-37) U/L ALT 41 (12-78) U/L Alkaline Phosphatase 61 (45-117) U/L Total Protein 7.5 (6.4-8.2) gm/dl Albumin 3.7 (3.4-5.0) gm/dl Intake and Output 03/27/19 03/28/19 03/28/19 22:59 06:59 14:59 Intake Total 1380 / 2230 300 / 2230 Output Total 650 / 2400 1050 / 2400 Balance 730 / -170 -750 / -170 Intake: Oral 1380 / 2230 300 / 2230 Output: Urine 650 / 2400 1050 / 2400 Other: Weight 110.5 kg
--- NOTE | 2019-03-28 15:21 | Discharge Summary ---
Date of Service March 28, 2019 Admission HPI Per Admitting Provider This is a 48-year-old male who has significant past medical history of nonischemic cardiomyopathy EF 20 to 24%, PAF, pulmonary hypertension, obesity who presents to [facility] ED secondary to shortness of breath x1 day. is at bedside. Patient elicits he was unable to sleep last night due to feeling short of breath, unable to take deep breath. Also complains of frequent dry cough. Symptoms were slightly improved with sitting upright, but still felt like he was having difficulty "getting air." He further elicits having palpitations, feeling like heart racing, substernal nonradiating chest pressure. He denies any recent fever, chills, sweats, lightheadedness, dizziness, syncope, shortness breath at rest, hemoptysis, nausea, vomiting, diarrhea, changes bowel or urinary habits. Of significance patient was seen by automatic fabric cutter Dr. Llamas on 03/22. At this visit it was reported patient was experiencing dyspnea on exertion for approximately 1 week, and overall not feeling well. At that visit he was noted to be in A. fib with RVR. He does have a past medical history of paroxysmal A. fib which required cardioversion and he was anticoagulated on Coumadin. Patient was noncompliant with Coumadin/INR testing and when rhythm regulated this has since been discontinued. He was restarted back on Coumadin 5 mg daily, last dose yesterday. Is been Toprol succinate was also increased to 50 mg twice a day. He was offered inpatient admission for sotalol load, but patient declined. He also declined Lovenox bridging, NOAC due to financial reasons. During his visit on 03/[address] Llamas he was further noted to be in decompensated CHF. At that time his Lasix was increased from 20 mg daily to 40 mg twice a day. Patient states yesterday he noticed his weight was up 3 to 4 pounds and therefore he took 3 doses of 40 mg Lasix. His baseline weight is approximately 247. He does note increased swelling of bilateral lower extremities. Pt has significant family hx of CAD and cardiomyopathy. Father from CAD. Pt has brother and sister who also have nonischemic BOW REHAIRER and CABG in 40s. Admission Exam Per Admitting Provider Constitutional: WD/WN, M, vitals as above, NAD, sitting up in bed, pleasant, conversing easily Head: Normocephalic, Atraumatic Eyes: PERRL, conjunctivae normal, anicteric sclerae ENMT: external ear and nose normal, oropharynx normal Neck: trachea midline, no thyromegaly normal visual inspection Respiratory: normal respiratory effort, lungs clear to auscultation, no wheeze, rales, rhonchi. Normal insp/exp effort, no accessory muscle use Cardiovascular: IRR/IRR, no murmur, +1 pretibial edema b/l, no erythema, warmth, negative homans Vessels: no JVD or carotid bruit Chest: normal inspection of chest Abdomen: normal bowel sounds, soft, nontender, no hepatosplenomegaly Musculoskeletal: no cyanosis or clubbing, extremities motor strength 5/5 Skin: no rashes, warm normal turgor Neurologic: PERRL, EOMI, accommodation nl, no face palsy, no dysarthria CN's II-XI intact bilaterally and moves all extremities Psychiatric: A+Ox3, euthymic affect : deferred Principal Diagnosis (1) HFrEF (heart failure with reduced ejection fraction): (2) Non-ischemic cardiomyopathy: (3) Thrombus of left atrial appendage: (4) Functional mitral regurgitation: (5) Atrial fibrillation with RVR: Discharge Exam ROS-No Headache, No Visual Changes, No Nausea, No Vomiting, No Fever, No Chills, No Neck Pain or Stiffness, No Chest Pain, No Palpitations, No SOB, No HELM, No Cough, No Sputum, No Wheezing, No Abdominal Pain, No Diarrhea, No Hematemesis, No Hemoptysis, No Unexpected Weight Loss, No Flank pain, No Melena, No Hematochezia, No Frequency, No Urgency, No Burning, No Hematuria, No Rashes, No Diaphoresis. Appetite is Normal Physical Exam Gen-AAO x 3, NAD, Afebrile Head-NCAT, EOMI, PERRLA, Anicteric Sclera, No Posterior Pharyngeal Erythema Neck-Supple, No JVD, No Thyromegaly, No Masses, No LAD, No Bruits Lungs-Clear to Auscultation Bilaterally, No Rales, No Rhonchi, No Wheezing, No Crepitus Chest-No S4, +S1, +S2, No S3, No Murmurs, No Rubs, No Gallops, No Ectopy Abdomen-Soft, Bowel Sounds Present, Non Tender, Non Distended, No Hepatomegaly, No Splenomegaly, No Palpable Masses, No Rebound, No Rigidity, No Guarding Musculoskeletal-Full Range of Motion Bilaterally, No CVAT Extremities-No Cyanosis, No Clubbing, No Edema Nuero-Cranial Nerves II-XII grossly intact, Motor WNL, DTRs WNL, Strength WNL, Non Focal Psych-Normal Mood Discharge Data Allergies Allergy/AdvReac Type Severity Reaction Status Date / Time No Known Allergies Allergy Unverified 03/25/19 09:45 Consultations 03/25/19 09:27 ED Decision to Admit Stat 03/25/19 09:59 Consult Cardiology Routine 03/26/19 09:10 Consult Anesthesiology Routine Procedures Performed Operation Date: 03/27/19 07:45 Actual Procedures p Echo Transesophageal - Yonis Kurtz, DO +Left Atrila Hospital Course (1) Shortness of breath: (2) Atrial fibrillation with RVR: This is a 48-year-old male who has significant past medical history of nonischemic cardiomyopathy EF 20 to 24%, PAF, pulmonary hypertension, obesity who presents to [facility] ED secondary to shortness of breath x1 day. In ED patient was noted to be in atrial fibrillation with RVR, heart rates variable 101-150s Chest x-ray with volume overload and advanced congestive change CBC, CMP relatively unremarkable, troponin and TSH WNL In ED patient initially started on IV amiodarone along with IV heparin In ED patient did have multiple runs of couplets and triplets but nothing sustained DCCV was not done sec to clot in [place], 3 months A/C, life vest toady, AICD down the road, Titrating Dig and Lopressor, Off Amiodarone Warfarin is therapeutic Daily INR (3) Systolic and diastolic CHF, acute on chronic: Decompensated biventricular systolic and diastolic CHF PO Lasix heart healthy, low NA diet echocardiogram, last done 07/26/17 revealed EF 20-24% with severe global hypokinesis, biventricular cardiomyopathy with reduced R ventricular function as well, Grade II diastolic dysfunction Echo-15-20% EF DC today after vest placed (4) Hypertension: blood pressure good today On lisinopril, metoprolol, lasix, and aldactone (5) Obesity: BMI 40.2 diet and lifestyle modifications (6) DVT prophylaxis: PCP Dr. Rubio 04/03 at 1245 and cardiology next week Total Time Total Time Spent Total Time Spent (In Minutes): 45 mins Total Time Includes: Examination of the Patient, Discharge Planning, Medication Reconciliation and Communication With Other Providers Discharge Plan Discharge Items Patient Disposition: Home - Self-Care Reason For Visit: DECOMPENSATED CHF,AFIB RVR Discharge Diagnosis: (1) HFrEF (heart failure with reduced ejection fraction): (2) Non-ischemic cardiomyopathy: (3) Thrombus of left atrial appendage: (4) Functional mitral regurgitation: (5) Atrial fibrillation with RVR: Condition on Discharge: Good Activity: Per Instructions section Activity Comment: as tolerated Lifting: Gradually increase as tolerated Bathing: No limitations Sexual Activity: When tolerated Exercise/Sports: None Driving/Machine Use: No limitations Weightbearing: Full weightbearing Non-emergency contact: Primary Care Provider and [facility] Call non-emergency contact if: you have any medication questions Follow-up/Referrals: Yonis Kurtz DO [[facility]] - (f/u next week) Kp Rubio MD [Primary Care Provider] - 04/03/19 12:45 pm Diet: Carb Consistent or DM2 and Low Potassium (2gm) Fluids: 1000ml (4 cups) Addtl Attending Provider Instructions: Monitor INR Pending Studies at Discharge: No Studies:: DC after life vest placed Stand-Alone Forms: My [facility] [employer] Medications and DC Order Prescriptions: New metoprolol succinate 50 mg Tablet Extended Release 24 Hr 100 mg PO DAILY Qty: 30 RF: 0 metoprolol succinate 50 mg Tablet Extended Release 24 Hr 50 mg PO HS Qty: 30 RF: 0 digoxin 250 mcg Tablet 0.25 mg PO DAILY@1600 Qty: 30 RF: 0 nitroglycerin [Nitrostat] 0.4 mg Tablet, Sublingual 0.4 mg sublingual UD PRN (Reason: chest pain) Qty: 30 RF: 0 lisinopril 2.5 mg Tablet 2.5 mg PO QAM Qty: 30 RF: 0 spironolactone 25 mg Tablet 25 mg PO QAM Qty: 30 RF: 0 Continued atorvastatin 20 mg tablet 20 mg PO HS Qty: 30 RF: 2 warfarin 5 mg tablet 5 mg PO DAILY Qty: 30 RF: 0 furosemide 40 mg tablet 40 mg PO [id number] Qty: 60 RF: 0 Discontinued lisinopril 2.5 mg Tablet 2.5 mg PO QAM Qty: 30 RF: 1 spironolactone 25 mg Tablet 12.5 mg PO DAILY Qty: 30 RF: 1 metoprolol succinate [Toprol XL] 50 mg tablet extended release 24 hr 50 mg PO BID RF: 0 Discharge Orders: Discharge Order (Routine); Ordered 03/28/19 Ordered By: Jarad Shepherd Admission Data Admit Date/Time: 03/26/19 10:49 Attending Provider: Jarad Shepherd Admit Provider: Jarad Shepherd Primary Care Provider: Kp Rubio I. Other Providers: Yonis Kurtz ; Jarad Shepherd ; Yonis Black
[2019-03-28] MEDS: DIGOXIN 0.25 MG TAB PO SCH (16:14)
[2019-03-28] MEDS ORDERED: METOPROLOL SUCC 50MG EXT REL TAB PO SCH (21:00)
[2019-03-29] MEDS ORDERED: METOPROLOL SUCC 50MG EXT REL TAB PO SCH (09:00)
== END 2019-03-28 17:00 | disposition home or self-care (01) | DRG 308 ==
LOC: ED 08:06 → 2E 08:06